=== PATIENT | male | born 1960 | race Caucasian/White ===

== ENCOUNTER 2019-10-31 19:14 | Emergency (ER) | payer SELFPAY ==
[2019-10-31 19:15] VITALS: BP 133/77; PULSE 78; RESP 16; TEMP 36.4; O2SAT 98; BMI 30.2
--- NOTE | 2019-10-31 19:18 | ED_ITS ---
HPI - SOB/Dyspnea General: Stated Complaint: POP IN GROIN Time Seen by Provider: 10/31/19 19:18 Discharge Plan Discharge Patient Disposition: Home, Self-Care Clinical Impression: Bronchitis Condition: Stable Prescriptions: New amoxicillin 500 mg capsule 500 mg PO TID 10 Days Qty: 30 RF: 0 benzonatate [Tessalon Perles] 100 mg capsule 100 mg PO TID PRN (Reason: cough) Qty: 30 RF: 0 Discharge Orders: Discharge Order (Routine); Ordered 10/31/19 Ordered By: Magda Simms Referrals: Emely Oliver DO [Physician] - 1-3 days Discharge Diet: Advance as tolerated Discharge Activity: Increase activity as tolerated Patient Instructions: Acute Bronchitis (ED) Activity Restrictions/Additional Instructions: Please return to the ER immediately for any of the signs or symptoms listed on your discharge instruction sheets, worsening/changing of your symptoms, you are not getting better as quickly as expected, or for ANY other cause or concerns. Coding Level of Care Code ED Consulting Psychiatrist for Luis Tate
--- NOTE | 2019-10-31 19:31 | US_ITS ---
WS: [id number] TESTICULAR ULTRASOUND HISTORY: Right inguinal and testicle pain COMPARISON: None available. TECHNIQUE: Real-time and color Doppler imaging or utilized to perform a testicular ultrasound. Right testicle: 4.0 cm x 2.5 cm x 2.0 cm. Normal size and echogenicity. No mass or torsion. Normal color Doppler is present throughout. Systolic and diastolic velocities are both present. No significant hydrocele. Right epididymis: Normal epididymis with no increased vascularity. Spermatocele. Left testicle: 4.5 cm x 3.6 cm x 3.9 cm. Normal size and echogenicity. No mass or torsion. Normal color Doppler is present throughout. Systolic and diastolic velocities are both present. No significant hydrocele. Left epididymis: Normal epididymis with no increased vascularity. No hernia is identified. There is fat along the inguinal canals but no evidence for ischemic change. US/US scrotum [id number] IMPRESSION: NORMAL TESTICULAR ULTRASOUND.
[2019-10-31] MEDS: lactated ringers 1,000 ML 150 ML IV (19:55)
[2019-10-31 19:56] VITALS: RESP 18; O2SAT 97
[2019-10-31] MEDS: morphine 4 mg/mL SDV 1 mL IVP (19:56)
[2019-10-31] MEDS: ondansetron 2 mg/ML SDV 2 mL 4 MG IVP (19:57)
--- NOTE | 2019-10-31 20:03 | CTR_ITS ---
PROCEDURE INFORMATION: Exam: CT Abdomen And Pelvis Without Contrast Exam date and time: 10/31/2019 8:05 PM Age: 59 years old Clinical indication: Pain; Other: [place] a pop in groin; Prior surgery; Surgery type: Left hip, ivc filter; Additional info: RT. Inguinal pain TECHNIQUE: Imaging protocol: Computed tomography of the abdomen and pelvis without contrast. Radiation optimization: All CT scans at this facility use at least one of these dose optimization techniques: automated exposure control; mA and/or kV adjustment per patient size (includes targeted exams where dose is matched to clinical indication); or iterative reconstruction. COMPARISON: CT abdomen pelvis w con* [id number] 10/09/2014 2:34 PM RADIATION DOSE METRICS: Total DLP: 1161.59 mGy-cm FINDINGS: Lungs: Limited assessment lung bases without visible evidence of active cardiopulmonary process. Liver: Unremarkable. No mass. Gallbladder and bile ducts: Normal. No calcified stones. No ductal dilation. Pancreas: Normal. No ductal dilation. Spleen: Normal. No splenomegaly. Adrenals: Normal. No mass. Kidneys and ureters: Normal. No hydronephrosis. Stomach and bowel: Mild diverticulosis coli without visible evidence of active or acute diverticulitis. Nonobstructive bowel pattern. No visible adynamic or reactive ileus. Appendix: No evidence of appendicitis. Intraperitoneal space: Unremarkable. No free air. No significant fluid collection. Vasculature: IVC filter. The abdominal aorta is nonaneurysmal. Moderate arterial sclerotic disease. Lymph nodes: Unremarkable. No enlarged lymph nodes. Bladder: Unremarkable as visualized. Reproductive: Prostate hypertrophy. Bones/joints: Previous left hip pinning. No visible active or acute osseous pathology. Age-appropriate degenerative disease. Soft tissues: Bilateral small inguinal hernias containing fat only. CT/CT abdomen pelvis wo con [id number] IMPRESSION: No visible evidence of active or acute abdominal or pelvic pathologic process. Radiation Dose CTDIVOL = (mGy): DLP = 1161.59 (mGy-cm)
--- NOTE | 2019-10-31 20:03 | ED_ITS ---
HPI - Extremity Problem General: Chief complaint: Extremity Injury, Lower Stated complaint: POP IN GROIN Time Seen by Provider: 10/31/19 19:18 History of Present Illness: HPI Narrative: Aguila is a very nice 59-year-old male who comes in complaining of right inguinal pain. He states he was at work when he felt a sudden pop and burning pain in his right inguinal area. It radiated down to his right testicle and into his groin. The pain gradually subsided but then tonight while at rest he developed the burning pain in his groin again. Denies any difficulty urinating, fever, vomiting, lumps or swelling in the area, penile discharge, rectal pain or any other complaints. Patient denies ever have anything like this before. He denies any history of hernias, testicular problems or otherwise. He is not tried anything for this. He was brought in by EMS. Associated symptoms: Deny chest pain, fever(s) or rash Review of Systems Const: Denies: fever(s), chills, body aches, fatigue, malaise, night sweats or diaphoresis Eyes: Denies: change in vision, blurry vision or blind spots ENMT: Denies: throat pain, odynophagia, hoarseness, ear or mastoid pain, ear discharge, change in hearing or nasal discharge Card: Denies: chest pain, palpitations, irregular heart rhythm, lightheadedness, syncope, pre-syncope, dyspnea on exertion or orthopnea Resp: Denies: dyspnea, productive cough, non-productive cough, wheezing, hemoptysis or chest congestion GI: Reports: abdominal pain; Denies: nausea, vomiting, hematemesis, coffee ground emesis, heartburn, diarrhea, constipation, GI cramping, hematochezia or melena : Denies: flank pain, dysuria, urinary frequency, urinary urgency, oliguria, urinary incontinence or hematuria Musc: Denies: neck pain, back pain, extremity pain, extremity swelling, joint pain, joint swelling, joint redness, joint warmth or joint stiffness Skin/Breast: Denies: rash, pruritus, erythema, skin tenderness or jaundice Neuro: Denies: headache(s), numbness in extremities, weakness in extremities, sensory changes, lack of coordination, difficulty walking, dizziness, vertigo, confusion or Slurred speech present Endo: Denies: polyuria, polydipsia, tired all the time, cold intolerance, excessive sweating, flushing, hot flashes or heat intolerance Calvin/Lymph: Denies: easy bruising, easy bleeding, petechiae, purpura or enlarged lymph nodes All/Imm: Denies: urticaria, throat swelling, tongue swelling, facial swelling or acute wheezing PFSH ED PFSH: Medical History Pulmonary emboli Vertigo Surgical History S/P IVC filter Status post hip surgery Social History Smoking and tobacco status: current every day smoker Physical Exam Const: COMMON NORMALS: no acute distress, patient oriented x3, no limitations, healthy appearing and well nourished EXAM LIMITATIONS: no altered mental status GENERAL APPEARANCE: cooperative, well kempt and well developed HENMT: COMMON NORMALS: normocephalic, atraumatic, hearing grossly normal bilaterally, external ears normal, EAC's normal, Normal external nose present and moist oral mucous membranes HEAD & SCALP: normal to inspection, normocephalic and atraumatic FACE & SINUS: normal facial exam and face symmetric NOSE: Normal external nose present and Normal nares present EXTERNAL EAR: Yes external ears normal EXTERNAL AUDITORY CANAL: EAC's normal MOUTH: Normal oral and palatal mucosa present, lip normal and tongue normal Eye: COMMON NORMALS: Equal, round and reactive pupils present, EOMs intact bilaterally, conjunctivae normal and no scleral icterus GENERAL EYE: appearance normal, both eyes and all related structures ALIGNMENT: Yes alignment normal PERIORBITAL: periorbital findings normal EYELID: eyelids normal CONJUNCTIVA: Yes conjunctivae normal SCLERA: sclerae normal PUPIL: Yes Equal, round and reactive pupils present Neck/C-Spine: COMMON NORMALS: full ROM, no lymphadenopathy, supple, no meningeal signs and no JVD GENERAL: Yes normal visual inspection and Yes trachea midline CERVICAL SPINE: Yes cervical ROM normal Chest: COMMONS NORMALS: normal inspection of the chest and normal palpation of entire chest wall Resp: COMMON NORMALS: normal respiratory effort, No retractions, No use of accessory muscles and clear to auscultation bilaterally EFFORT & INSPECTION: Yes able to speak in complete sentences AUSCULTATION: clear to auscultation bilaterally, no crackles, no rales, no rhonchi and no wheezes Cardio: COMMON NORMALS: no JVD, regular rate, regular rhythm, S1 normal heart sound present, S2 normal heart sound present, No gallops present (Cardio), No clicks present (Cardio), No murmurs present (Cardio) and No rub (Cardio) RATE: regular rate RHYTHM: regular rhythm HEART SOUNDS: S1 normal heart sound present, S2 normal heart sound present, no click, no gallops, no murmurs and no rubs GI: COMMON NORMALS: Soft to palpation, No hepatosplenomegaly present and no masses PALPATION: Yes Soft to palpation, No Tenderness to palpation present (GI) (Right inguinal area. No definitive hernia is palpated), No Guarding due to palpation present (GI), No Rigid due to palpation, Yes No hepatosplenomegaly present, No Hernia present, No Palpable mass present and No Pulsatile mass present : COMMON NORMALS: Yes no CVA tenderness BLADDER/KIDNEY EXAM: Yes no CVA tenderness PENIS: normal penis SCROTUM: Yes testes descended bilaterally, Yes Cremasteric reflex present and No inguinal hernia TESTES: Yes testicular lie normal Back/Pelvis: COMMON NORMALS: no CVA tenderness, thoracic and lumbar spine normal to inspection, no thoracic nor lumbar tenderness and thoraco-lumbar ROM normal Extremity: COMMON NORMALS: normal to inspection, full ROM, capillary refill normal, no joint enlargement, no clubbing, cyanosis or edema and no calf tenderness Neuro: COMMON NORMALS: patient oriented x3, CN's II-XII intact bilaterally, moves all extremities, no focal motor deficits and no sensory deficits noted MENINGEAL SIGNS: Yes no meningeal signs SPEECH: speech normal Psych: COMMON NORMALS: mental status grossly normal, Normal thought process present, cooperative, normal affect, speech normal and activity/motor behavior normal APPEARANCE: Yes well kempt SPEECH: Yes normal speech THOUGHT PROCESS: Normal thought process present Skin: COMMON NORMALS: no rashes or lesions noted, turgor normal, no jaundice, no petechiae and no mottling GENERAL SKIN EXAM: no rashes or lesions noted and turgor normal Course ED course: 2008 -after that information of hernia being present on ultrasound I went back in and palpated much deeper into the patient's right inguinal area and I believe I felt it give. I believe the hernia is back in place. The patient continues to have burning inguinal pain so I will add a CT scan just to be certain there is no further hernia which could become serious if it becomes necrotic. Vital Signs: Vital signs: Vital Signs Temperature 97.6 F 10/31/19 19:15 Pulse Rate 62 10/31/19 21:49 Respiratory Rate 14 10/31/19 21:49 Blood Pressure 111/73 10/31/19 21:49 Pulse Oximetry 95 10/31/19 21:49 MDM - Extremity (Nontraumatic) MDM Narrative: Medical decision making narrative: CT reveals that the patient's hernia has resolved. It was very subtle and I was not confident that this was the cause and that is why the CT was performed. I had applied deep pressure to the area and felt a small give but it was very small and very subtle and not completely confident that I had reduced the hernia or that this was a hernia at all. Aguila is comfortable now and has no burning pain. He is ready to go home. I see no evidence of appendicitis, kidney stone, testicular problem, infection, UTI or otherwise. Patient agrees to return should his pain or symptoms return. He agrees to follow-up with Dr. Alamo for evaluation for possible surgery and definitive repair. Lab Data: Attestation: I reviewed the patient's lab results. Labs: Lab Results 10/31/19 10/31/19 10/31/19 Range/Units 19:50 19:50 19:50 WBC 7.5 (4.0-10.0) 10^3/ uL RBC 4.92 (4.1-5.3) 10^6/u L Hgb 14.7 (11.7-16.6) g/dL Hct 45.2 (42.0-52.0) % MCV 91.9 (80-94) fL MCH 29.9 (28.0-34.0) pg MCHC 32.5 (30.0-36.0) g/dL RDW 12.5 (12.1-15.1) % Plt Count 241 (130-400) 10^3/c mm MPV 10.6 H (7.4-10.4) fL Neut % (Auto) 59.2 % Lymph % (Auto) 27.8 % Calvert % (Auto) 8.1 % Eos % (Auto) 3.5 % Baso % (Auto) 1.1 % Neut # (Auto) 4.4 (1.8-7.7) 10^3/u L Lymph # (Auto) 2.1 (0.8-4.8) 10^3/u L Calvert # (Auto) 0.6 (0.2-0.9) 10^3/u L Eos # (Auto) 0.3 (0.0-0.8) 10^3/u L Baso # (Auto) 0.1 (0.0-0.1) 10^3/u L Nucleated RBC % (a uto) 0 % Nucleated RBCs # 0.0 /100WBC PT 12.90 (10.5-13.3) SECO NDS INR 0.94 (0.8-1.2) Sodium 138 (136-145) mmol/L Potassium 4.0 (3.5-5.1) mmol/L Chloride 103 (98-107) mmol/L Carbon Dioxide 25 (22-29) mmol/L Anion Gap 14.0 (5-19) BUN 15 (6-20) mg/dL Creatinine 0.9 (0.7-1.2) mg/dL GFR Calculation 86.4 L (90-130) mL/min Glucose 117 H (65-115) mg/dL Calculated Osmolal ity 283 L (285-295) mOsm/k g Calcium 8.6 (8.5-10.5) mg/dL Total Bilirubin 0.4 (0.15-1.2) mg/dL AST 17 (0-40) U/L ALT 28 (0-41) U/L Alkaline Phosphata se 83 (40-130) IU/L Total Protein 6.6 (6.6-8.7) g/dL Albumin 4.1 (3.5-5.2) g/dL Globulin 2.5 (1.3-4.6) g/dL Lipase 34 (13-60) U/L Urine Color (Yellow) Urine Appearance (CLEAR) Urine pH (5-7) Ur Specific Gravit y (1.005-1.030) Urine Protein (Negative) Urine Glucose (UA) (Normal) Urine Ketones (Negative) Urine Blood (Negative) Urine Nitrate (Negative) Urine Bilirubin (NEGATIVE) Urine Urobilinogen (Negative) mg/dL Ur Leukocyte Luana ase (Negative) Urine RBC (0-2) /hpf Urine WBC (0-5) /hpf Ur Squamous Epith Cells (0-5) Urine Bacteria (NONE) Urine Mucus 10/31/19 Range/Units 20:20 WBC (4.0-10.0) 10^3/ uL RBC (4.1-5.3) 10^6/u L Hgb (11.7-16.6) g/dL Hct (42.0-52.0) % MCV (80-94) fL MCH (28.0-34.0) pg MCHC (30.0-36.0) g/dL RDW (12.1-15.1) % Plt Count (130-400) 10^3/c mm MPV (7.4-10.4) fL Neut % (Auto) % Lymph % (Auto) % Calvert % (Auto) % Eos % (Auto) % Baso % (Auto) % Neut # (Auto) (1.8-7.7) 10^3/u L Lymph # (Auto) (0.8-4.8) 10^3/u L Calvert # (Auto) (0.2-0.9) 10^3/u L Eos # (Auto) (0.0-0.8) 10^3/u L Baso # (Auto) (0.0-0.1) 10^3/u L Nucleated RBC % (a uto) % Nucleated RBCs # /100WBC PT (10.5-13.3) SECO NDS INR (0.8-1.2) Sodium (136-145) mmol/L Potassium (3.5-5.1) mmol/L Chloride (98-107) mmol/L Carbon Dioxide (22-29) mmol/L Anion Gap (5-19) BUN (6-20) mg/dL Creatinine (0.7-1.2) mg/dL GFR Calculation (90-130) mL/min Glucose (65-115) mg/dL Calculated Osmolal ity (285-295) mOsm/k g Calcium (8.5-10.5) mg/dL Total Bilirubin (0.15-1.2) mg/dL AST (0-40) U/L ALT (0-41) U/L Alkaline Phosphata se (40-130) IU/L Total Protein (6.6-8.7) g/dL Albumin (3.5-5.2) g/dL Globulin (1.3-4.6) g/dL Lipase (13-60) U/L Urine Color Yellow (Yellow) Urine Appearance Hazy A (CLEAR) Urine pH 5 (5-7) Ur Specific Gravit y 1.025 (1.005-1.030) Urine Protein Neg (Negative) Urine Glucose (UA) 1+ (Normal) Urine Ketones Negative (Negative) Urine Blood Neg (Negative) Urine Nitrate Negative (Negative) Urine Bilirubin Neg (NEGATIVE) Urine Urobilinogen Norm (Negative) mg/dL Ur Leukocyte Luana ase Negative (Negative) Urine RBC 0-4 H (0-2) /hpf Urine WBC None (0-5) /hpf Ur Squamous Epith Cells 0-4 H (0-5) Urine Bacteria Trace (NONE) Urine Mucus 2+ Imaging Data^: Ultrasound Scrotum and Contents: My impression: Technologist interpretation -testicles normal without torsion. Small epididymal cyst. No hydroceles. Omental hernia present in right inguinal canal. Discharge Plan Discharge Patient Disposition: Home, Self-Care Clinical Impression: Hernia Condition: Stable Prescriptions: New amoxicillin 500 mg capsule 500 mg PO TID 10 Days Qty: 30 RF: 0 Tessalon Perles 100 mg capsule 100 mg PO TID PRN (Reason: cough) Qty: 30 RF: 0 Discharge Orders: Discharge Order (Routine); Ordered 10/31/19 Ordered By: Magda Simms Referrals: Jean Alamo MD [Physician] - 1-3 days Emely Oliver DO [Physician] - 1-3 days Discharge Diet: Advance as tolerated Discharge Activity: Increase activity as tolerated Patient Instructions: Inguinal Hernia (ED) Activity Restrictions/Additional Instructions: Please return to the ER immediately for any of the signs or symptoms listed on your discharge instruction sheets, worsening/changing of your symptoms, you are not getting better as quickly as expected, or for ANY other cause or concerns. Use tight fitting underwear or jockstrap to help keep pressure on the area invo lved. If you feel a hernia return or you have pain in your groin return to the ER as soon as possible for recheck. Stand Alone Forms: Work/School Release Discharge Date/Time: 10/31/19 21:57 Coding Level of Care Code ED Training Instructor for Chg Fwd Exam Comprehensive
[2019-10-31 20:10] LABS: Basophils # 0.1 10^3/uL (0.0-0.1); Basophils % 1.1 %; Eosinophils # 0.3 10^3/uL (0.0-0.8); Eosinophils % 3.5 %; Hematocrit 45.2 % (42.0-52.0); Hemoglobin 14.7 g/dL (11.7-16.6); Lymphocytes # 2.1 10^3/uL (0.8-4.8); Lymphocytes % 27.8 %; Mean Corpuscular HGB Conc 32.5 g/dL (30.0-36.0); Mean Corpuscular Hemoglobin 29.9 pg (28.0-34.0); Mean Corpuscular Volume 91.9 fL (80-94); Mean Platelet Volume 10.6 fL (7.4-10.4); Monocytes # 0.6 10^3/uL (0.2-0.9); Monocytes % 8.1 %; Neutrophils # 4.4 10^3/uL (1.8-7.7); Neutrophils % 59.2 %; Nucleated Red Blood Cells % 0 %; Platelet Count 241 10^3/cmm (130-400); Red Blood Count 4.92 10^6/uL (4.1-5.3); Red Cell Distribution Width 12.5 % (12.1-15.1); White Blood Count 7.5 10^3/uL (4.0-10.0)
[2019-10-31 20:23] LABS: INR 0.94 (0.8-1.2)
[2019-10-31 20:35] LABS: Alanine Aminotransferase 28 U/L (0-41); Albumin Level 4.1 g/dL (3.5-5.2); Alkaline Phosphatase 83 IU/L (40-130); Aspartate Amino Transferase 17 U/L (0-40); Blood Urea Nitrogen 15 mg/dL (6-20); Calcium 8.6 mg/dL (8.5-10.5); Carbon Dioxide 25 mmol/L (22-29); Chloride 103 mmol/L (98-107); Globulin 2.5 g/dL (1.3-4.6); Glomerular Filtration Rate 86.4 mL/min (90-130); Glucose 117 mg/dL (65-115); Lipase 34 U/L (13-60); Osmolality Calculated 283 mOsm/kg (285-295); Sodium 138 mmol/L (136-145); Total Bilirubin 0.4 mg/dL (0.15-1.2); Total Protein 6.6 g/dL (6.6-8.7)
[2019-10-31 21:10] LABS: Bilirubin Urine Neg (NEGATIVE); Blood Urine Neg (Negative); Glucose Urine UA 1+ (Normal); Ketones Urine Negative (Negative); Leukocyte Esterase Urine Negative (Negative); Nitrate Urine Negative (Negative); Protein Urine Neg (Negative); Specific Gravity, Urine 1.025 (1.005-1.030); Urine Appearance Hazy (CLEAR); Urine Color Yellow (Yellow); Urobilinogen Urine Norm (Negative); pH Urine 5 (5-7)
[2019-10-31 21:12] LABS: Add Urine Culture? No; Bacteria Urine TRACE; Mucus Urine 2+; RBC Urine 0-4 /hpf (0-2); Squamous Epithelial Cell Urine 0-4 (0-5)
[2019-10-31 21:49] VITALS: BP 111/73; PULSE 62; RESP 14; O2SAT 95
--- NOTE | 2019-11-01 12:44 | DCPLANNER ---
surface water manager had message to schedule a follow up appointment for patient with [facility]. surface water manager spoke with Meagan, gave clinic patients information. A follow up appointment is scheduled for Tuesday, November 05, 2019 at 3:[address] Alamo. Clinic will call patient with appointment information.
--- NOTE | 2019-11-13 10:01 | DCPLANNER ---
Patient attended appointment scheduled with [facility] on 11.05.19.
== END 2019-10-31 21:57 | disposition home or self-care (01) ==
LOC: ER 19:47
PROVIDERS: Emergency Provider Emergency Medicine
DX: K46.9 Unspecified abdominal hernia without obstruction or gangrene (principal); F17.210 Nicotine dependence, cigarettes, uncomplicated
CPT/HCPCS: 12345; 74176; 76870; 80053; 81001; 83690; 85025; 85610; 96365; 96366; 96375; 99282; 99283; J2270; J2405

== ENCOUNTER 2019-11-07 09:16 | Day surgery (SDC) | payer SELFPAY ==
[2019-11-06 12:14] VITALS: BMI 27.2
[2019-11-07] VITALS (8 sets, daily range): BP systolic 117–152; BP diastolic 77–92; PULSE 56–65; RESP 16–23; TEMP 35.9–36.3; O2SAT 92–97
--- NOTE | 2019-11-07 09:33 | W.PM.OPSUD ---
Surgery/Procedure H&P Update DATE OF PROCEDURE: November 07, 2019 DATE H&P PERFORMED: 11/05/19 H&P UPDATE INFORMATION: I have reviewed H&P completed within last 30 days, I have examined patient prior to procedure and No changes to prior documentation PREOP DIAGNOSIS: Right inguinal hernia PLANNED PROCEDURE: Operation Date: 11/07/19 10:30 Proposed Procedures p Laparoscopic Inguinal Hernia Repair with mesh [id number]/hernia K42.9(Right) - Jean Alamo MD
--- NOTE | 2019-11-07 09:36 | P.ANESASSM_ITS ---
Pre-Anesthetic Assessment Pre-Anesthetic Assessment: Height/Weight: Height 1.88 m Weight 96.162 kg Preop Diagnosis: Right inguinal hernia Proposed Procedure: Operation Date: 11/07/19 10:30 Proposed Procedures p Laparoscopic Inguinal Hernia Repair with mesh [id number]/hernia K42.9(Right) - Jean Alamo MD Familial anesthetic complications: None Was Beta Gold taken within 24 hours: N/A Last intake: Intake Last Liquid Date 11/06/19 Last Liquid Time 21:00 Last Solid Date 11/06/19 Last Solid Time 21:00 Social: Social History: Tobacco and No alcohol Exam: Pre-Anes Outpt Exam: alert, oriented x 3, clear to auscultation bilaterally and regular rate & rhythm Airway: Cervical ROM: WNL MP: 2 Additional comments: missing, poor dention Pulmonary: Pulmonary: None reported CV/HEM: CV/HEM: None reported : : None reported Hepatic: Hepatic: None reported GI: GI: None reported Metabolic: Metabolic: None reported Musc/skel: Musc/skel: None reported Neuropsych: Neuropsych: None reported Anesthetic Plan: ASA status: 1 Anesthesia: General Risk of > 500 ml blo od loss (7ml/kg in children): No PFSH Anesthesia PFSH: Medical History Pulmonary emboli Vertigo Surgical History H/O circumcision History of throat surgery S/P IVC filter Status post hip surgery Family History Denies family history of Diabetes CAD (coronary artery disease) Anesthesia complication Bleeding disorder Cancer Social History Smoking and tobacco status: current every day smoker Alcohol intake: never Household members: significant other Marital status: Single Current occupational status: employed History of recent travel: No Data Anesthesia Cardiac Studies: No Data to Display
[2019-11-07] MEDS: sodium chloride 0.9% 1,000 ML 30 ML IV (09:48)
[2019-11-07] MEDS: vancomycin 1,000 MG in sodium chloride 0.9% 250 ML 250 MG IV (09:51)
--- NOTE | 2019-11-07 10:54 | PM.OP ---
Operative Report Date of procedure: November 07, 2019 Pre-op Diagnosis: Right inguinal hernia Post-op Findings: Reducible indirect right inguinal hernia Procedure Done: Laparoscopic total extraperitoneal repair of right inguinal hernia with surgimax 3D mesh Pathology: none sent Surgeon: Jean Alamo Anesthesia: General Estimated blood loss (mL): 10 Condition: stable Disposition: PACU Procedure: The patient was taken to the operating room. After IV antibiotic was administered, the abdomen was prepped and draped in a sterile manner. Using a 15 blade, a 1.0 cm transverse incision was made infraumbilically on the right side. Subcutaneous tissue was divided using electrocautery and the anterior rectus sheath divided using an 11 blade. The rectus muscle was retracted laterally and the extraperitoneal space identified. A 11 mm port was placed and 12 mm of pneumoperitoneum was created. A 10 mm 30? scope was introduced and the retrorectus space was opened using the camera up to the pubic symphysis and 5 mm ports were placed in the midline, one 2-fingerbreadths above the pubic symphysis and the other midway between these two ports under direct visualization. Blunt dissection was carried out to open up the tissue in the midline and to the pubic symphysis, which was identified. The dissection was then carried laterally where the iliopubic tract was identified. There was no femoral, obturator or direct hernia noted. The inferior epigastric artery was identified and dissection was carried posterior to it and laterally, the space was opened up to the level of the umbilicus superior to the anterior superior iliac spine. I then proceeded to dissect out the spermatic cord and the indirect hernial sac was reduced . 16 x 10cm Surgimax 3D mesh was rolled and introduced through the 10 mm port and then rolled laterally and apposed well against the abdominal wall to cover the myopectineal orifice completely. 10 Cc of 0.5% Marcaine was infiltrated into the preperitoneal space. The extraperitoneal space was desufflated under direct visualization to ensure no slippage of hernial sac under the mesh. All ports were removed, the anterior rectus fascia at the infraumbilical port closed using figure of eight 0 Vicryl sutures, subcutaneous tissue approximated using 3-0 Vicryl sutures and skin at all three port sites were closed using running subcuticular 4-0 Monocryl sutures and Dermabond. 10 mL of 0.5% Marcaine was infiltrated at the port sites. The patient was stable throughout the procedure.
--- NOTE | 2019-11-07 11:16 | SUR.PHASEI ---
PT SLEEPS QUIETLY WITH GOOD RESP NOTED PT AWAKES TO TOUCH BUT QUICKLY BACK TO SLEEP BLANKET WARMER ON FOR PT COMFORT #10, BILAT SCDS ON AND WORKING.
[2019-11-07] MEDS: HYDROcodone-acetaminophen 5-325 mg Tablet 1 TAB PO (11:50)
== END 2019-11-07 12:20 | disposition home or self-care (01) ==
PROVIDERS: Visit Provider Surgery
PROC: (CPT 49650; principal; 2019-11-07 10:30)
DX: K40.90 Unilateral inguinal hernia, without obstruction or gangrene, not specified as recurrent (principal); F17.210 Nicotine dependence, cigarettes, uncomplicated
CPT/HCPCS: 49650; 12345; C1781; J2704; J3010; J3370; J3490; J7030; J7050

== ENCOUNTER 2019-12-27 11:06 | Emergency (ER) | payer SELFPAY ==
[2019-12-27 11:13] VITALS: BP 130/81; PULSE 78; RESP 12; TEMP 36.2; O2SAT 98; BMI 30.2
--- NOTE | 2019-12-27 11:31 | CT_ITS ---
WS: [id number] CT scan of the abdomen and pelvis with IV contrast. Additional two-dimensional coronal and sagittal r econstruction was performed. 12/27/2019 Clinical Data: gi bleed Comparison: CT abdomen and pelvis, 10/31/2019. DLP: 1157.[address] scans at [facility] use at least one of these dose optimization techniques: automat ed exposure control; mA and/or kV adjustment per patient size (includes targeted exams where dose is matched to clinical indication); or iterative reconstruction. Findings: The lower lungs show no nodules, masses or effusions. The liver, gallbladder, spleen, adrenal glands and pancreas are normal. The kidneys show equal bilateral contrast excretion with no cyst or masses. The abdominal aorta is normal in size with minimal calcification in the wall. There is a vena caval f ilter in good position unchanged. No appendicitis or diverticulitis is seen. There are sigmoid diverticula. No abscess, adenopathy, asc ites, mass, obstruction or free air is seen. The bladder is unremarkable. No inguinal hernia is seen. The bones of the lower thorax, lumbar spine, pelvis, and hips show degenerative arthritic changes of the vertebral bodies and left femoral neck pins.. CT/CT abdomen pelvis w con* [id number] Impression: Negative for acute intra-abdominal or pelvic abnormalities.
--- NOTE | 2019-12-27 11:31 | XR_ITS ---
WS: [id number] Portable AP upright chest, 12/27/2019 Clinical Data: gi bleed Comparison: PA and lateral chest, 05/31/2017 Findings: No nodules, masses or effusions are seen. The heart is normal. The pulmonary vascularity is not increased. No pneumonia or pneumothorax is seen. XR/XR chest 1V portable [id number] Impression: Negative chest.
[2019-12-27 12:23] LABS: Basophils # 0.1 10^3/uL (0.0-0.1); Basophils % 0.8 %; Eosinophils # 0.1 10^3/uL (0.0-0.8); Eosinophils % 1.9 %; Hematocrit 46.4 % (42.0-52.0); Hemoglobin 15.2 g/dL (11.7-16.6); Lymphocytes # 1.8 10^3/uL (0.8-4.8); Lymphocytes % 28.4 %; Mean Corpuscular HGB Conc 32.8 g/dL (30.0-36.0); Mean Corpuscular Hemoglobin 29.9 pg (28.0-34.0); Mean Corpuscular Volume 91.2 fL (80-94); Mean Platelet Volume 10.6 fL (7.4-10.4); Monocytes # 0.4 10^3/uL (0.2-0.9); Monocytes % 5.6 %; Neutrophils # 4.08 10^3/uL (1.8-7.7); Nucleated Red Blood Cells % 0 %; Platelet Count 266 10^3/cmm (130-400); Red Blood Count 5.09 10^6/uL (4.1-5.3); Red Cell Distribution Width 12.7 % (12.1-15.1); White Blood Count 6.5 10^3/uL (4.0-10.0)
[2019-12-27 12:29] LABS: INR 0.96 (0.8-1.2); Partial Thromboplastin Time 30.1 SECONDS (23.9-36.7)
--- NOTE | 2019-12-27 12:29 | W.ED.GIBLEED ---
HPI - GI Bleed General: Chief complaint: Abdominal Pain Stated complaint: ABD PAIN, BLOODY STOOL Time Seen by Provider: 12/27/19 11:30 History of Present Illness: HPI Narrative: Patient states that he is having intermittent bloody stools for the past 2 weeks. Patient states he was seen at another facility approximately 2 weeks ago and had a CAT scan. Patient told me what the ER physician at that time had told him about the results of his CAT scan. Patient was reportedly told that he had stretch abdalla in his colon that are causing the rectal bleeding. MD complaint: blood streaked stool and gross hematochezia Onset (ago): week(s) (2) Pain Consistency: intermittent Relieving factors: none Exacerbating factors: bowel movement Associated symptoms: Reports no associated symptoms Treatments Prior to Arrival: none Review of Systems General: Reports: 10 or more systems reviewed and unremarkable except in HPI and below PFSH ED PFSH: Medical History (Updated 12/27/19 @ 13:02 by Derrek Reis DO) Pulmonary emboli Vertigo Surgical History (Updated 11/23/19 @ 17:32 by Jean Alamo MD) H/O circumcision History of throat surgery S/P IVC filter Status post hip surgery Status post right inguinal hernia repair Family History Denies family history of Diabetes CAD (coronary artery disease) Anesthesia complication Bleeding disorder Cancer Social History Smoking and tobacco status: current every day smoker Alcohol intake: never Household members: significant other Marital status: Single Current occupational status: employed History of recent travel: No Physical Exam Const: COMMON NORMALS: no acute distress, patient oriented x3, no limitations and alert HENMT: COMMON NORMALS: normocephalic, atraumatic, external ears normal and Normal external nose present HEAD & SCALP: normocephalic and atraumatic FACE & SINUS: normal facial exam NOSE: Normal external nose present EXTERNAL EAR: Yes external ears normal MOUTH: Normal oral and palatal mucosa present Neck/C-Spine: COMMON NORMALS: full ROM, no lymphadenopathy, supple, no meningeal signs and no JVD GENERAL: Yes normal visual inspection Resp: COMMON NORMALS: normal respiratory effort, No retractions, No use of accessory muscles and clear to auscultation bilaterally AUSCULTATION: clear to auscultation bilaterally Cardio: COMMON NORMALS: no JVD, regular rate and regular rhythm RATE: regular rate RHYTHM: regular rhythm GI: COMMON NORMALS: Normal to inspection, nondistended, normoactive bowel sounds present, Soft to palpation, non-tender, No hepatosplenomegaly present and no masses INSPECTION: Yes normal to inspection AUSCULTATION: Yes normoactive bowel sounds PALPATION: Yes Soft to palpation and Yes No hepatosplenomegaly present PERCUSSION: normal to percussion : COMMON NORMALS: Yes no CVA tenderness BLADDER/KIDNEY EXAM: Yes no CVA tenderness Back/Pelvis: COMMON NORMALS: no CVA tenderness, thoracic and lumbar spine normal to inspection, no thoracic nor lumbar tenderness, thoraco-lumbar ROM normal and straight leg raise negative bilaterally Extremity: COMMON NORMALS: normal to inspection, full ROM, capillary refill normal, no joint enlargement, no clubbing, cyanosis or edema, no calf tenderness and no pedal edema Neuro: COMMON NORMALS: patient oriented x3, moves all extremities, no focal motor deficits and no sensory deficits noted SENSORIUM/ORIENTATION: Yes alert MENINGEAL SIGNS: Yes no meningeal signs Psych: COMMON NORMALS: mental status grossly normal, Normal thought process present, cooperative, normal affect and speech normal SPEECH: Yes normal speech THOUGHT PROCESS: Normal thought process present Skin: COMMON NORMALS: no rashes or lesions noted, no wounds, turgor normal, no jaundice, no petechiae and no mottling GENERAL SKIN EXAM: no rashes or lesions noted and turgor normal Course ED course: Patient's Hemoccult test was negative. He has a hemoglobin of 15.2. BUN/creatinine are normal. As the patient apparently has no active bleeding at this time and is not anemic, he will be dismissed from the emergency room with a prescription for Anusol. He is instructed to contact Dr. Alamo as soon as possible to arrange for colonoscopy. He is instructed to return to the emergency room immediately for any problems, concerns, or worsening of condition. Vital Signs: Vital signs: Vital Signs Temperature 97.2 F L 12/27/19 11:13 Pulse Rate 78 12/27/19 11:13 Respiratory Rate 12 12/27/19 11:13 Blood Pressure 130/81 12/27/19 11:13 Pulse Oximetry 98 12/27/19 11:13 MDM - GI Bleed Lab Data: Labs: Lab Results 12/27/19 12/27/19 12/27/19 Range/Units 11:50 11:50 11:50 WBC 6.5 (4.0-10.0) 10^3/ uL RBC 5.09 (4.1-5.3) 10^6/u L Hgb 15.2 (11.7-16.6) g/dL Hct 46.4 (42.0-52.0) % MCV 91.2 (80-94) fL MCH 29.9 (28.0-34.0) pg MCHC 32.8 (30.0-36.0) g/dL RDW 12.7 (12.1-15.1) % Plt Count 266 (130-400) 10^3/c mm MPV 10.6 H (7.4-10.4) fL Neut % (Auto) 63.0 % Lymph % (Auto) 28.4 % [place] % (Auto) 5.6 % Eos % (Auto) 1.9 % Baso % (Auto) 0.8 % Neut # (Auto) 4.08 (1.8-7.7) 10^3/u L Lymph # (Auto) 1.8 (0.8-4.8) 10^3/u L [place] # (Auto) 0.4 (0.2-0.9) 10^3/u L Eos # (Auto) 0.1 (0.0-0.8) 10^3/u L Baso # (Auto) 0.1 (0.0-0.1) 10^3/u L Nucleated RBC % (a uto) 0 % Nucleated RBCs # 0.0 /100WBC PT 13.00 (10.5-13.3) SECO NDS INR 0.96 (0.8-1.2) APTT 30.1 (23.9-36.7) SECO NDS Sodium 138 (136-145) mmol/L Potassium 3.8 (3.5-5.1) mmol/L Chloride 105 (98-107) mmol/L Carbon Dioxide 24 (22-29) mmol/L Anion Gap 12.8 (5-19) BUN 17 (6-20) mg/dL Creatinine 0.9 (0.7-1.2) mg/dL GFR Calculation 86.4 L (90-130) mL/min Glucose 130 H (65-115) mg/dL Calculated Osmolal ity 284 L (285-295) mOsm/k g Calcium 9.3 (8.5-10.5) mg/dL Total Bilirubin 0.4 (0.15-1.2) mg/dL AST 12 (0-40) U/L ALT 17 (0-41) U/L Alkaline Phosphata se 83 (40-130) IU/L Total Protein 6.7 (6.6-8.7) g/dL Albumin 4.3 (3.5-5.2) g/dL Globulin 2.4 (1.3-4.6) g/dL Lipase 38 (13-60) U/L Discharge Plan Discharge Patient Disposition: Home Clinical Impression: Acute GI bleeding Condition: Stable Prescriptions: New Anusol-HC 25 mg suppository 25 mg IN BID Qty: 12 RF: 0 No Action Zofran 4 mg tablet 4 mg PO Q6H PRN (Reason: nausea and vomiting) Qty: 20 RF: 0 Colace 100 mg capsule 100 mg PO BID Qty: 30 RF: 0 Discharge Orders: Discharge Order (Routine); Ordered 12/27/19 Ordered By: Derrek Reis Coding Level of Care Code ED Travelift Operator for Lawrenceg Fwd Exam Comprehensive
[2019-12-27 12:35] LABS: Alanine Aminotransferase 17 U/L (0-41); Albumin Level 4.3 g/dL (3.5-5.2); Alkaline Phosphatase 83 IU/L (40-130); Anion Gap 12.8 (5-19); Aspartate Amino Transferase 12 U/L (0-40); Blood Urea Nitrogen 17 mg/dL (6-20); Calcium 9.3 mg/dL (8.5-10.5); Carbon Dioxide 24 mmol/L (22-29); Chloride 105 mmol/L (98-107); Globulin 2.4 g/dL (1.3-4.6); Glomerular Filtration Rate 86.4 mL/min (90-130); Glucose 130 mg/dL (65-115); Lipase 38 U/L (13-60); Osmolality Calculated 284 mOsm/kg (285-295); Potassium 3.8 mmol/L (3.5-5.1); Sodium 138 mmol/L (136-145); Total Bilirubin 0.4 mg/dL (0.15-1.2); Total Protein 6.7 g/dL (6.6-8.7)
[2019-12-27 12:47] LABS: Add Urine Microscopic? NO
[2019-12-27 13:15] LABS: Bilirubin Urine Neg (NEGATIVE); Blood Urine Neg (Negative); Glucose Urine UA Norm (Normal); Ketones Urine Negative (Negative); Leukocyte Esterase Urine Negative (Negative); Nitrate Urine Negative (Negative); Protein Urine Neg (Negative); Specific Gravity, Urine 1.015 (1.005-1.030); Urine Appearance Clear (CLEAR); Urine Color Yellow (Yellow); Urobilinogen Urine 1 mg/dL (Negative); pH Urine 5 (5-7)
[2019-12-27 13:24] LABS: Amphetamines Screen Urine Negative (Negative); Barbiturates Screen Urine Negative (Negative); Benzodiazepines Screen Urine Negative (Negative); Cocaine Screen Urine Negative (Negative); Opiate Screen Urine Negative (Negative); PCP Screen Urine Negative (Negative); THC Screen Urine Negative (Negative)
[2019-12-27 13:44] VITALS: BP 106/77; PULSE 71; RESP 18; O2SAT 96
== END 2019-12-27 13:46 | disposition home or self-care (01) ==
PROVIDERS: Emergency Provider Family Medicine
DX: K92.2 Gastrointestinal hemorrhage, unspecified (principal); F17.210 Nicotine dependence, cigarettes, uncomplicated
CPT/HCPCS: 12345; 71045; 74177; 80053; 80306; 81003; 83690; 85025; 85610; 85730; 99283; Q9967

== ENCOUNTER 2020-01-08 08:18 | Day surgery (SDC) | payer SELFPAY ==
[2020-01-04 14:42] VITALS: BMI 30.2
[2020-01-08 08:55] VITALS: BP 127/80; PULSE 66; RESP 18; TEMP 36.2; O2SAT 98
[2020-01-08] MEDS: sodium chloride 0.9% 1,000 ML 30 ML IV (08:59)
--- NOTE | 2020-01-08 09:43 | ANES.PREANE2 ---
Pre-Anesthetic Assessment Pre-Anesthetic Assessment: Height/Weight: Height 1.88 m Weight 106.594 kg Temp Pulse Resp BP Pulse Ox 97.2 F L 66 18 127/80 98 01/08/20 08:55 01/08/20 08:55 01/08/20 08:55 01/08/20 08:55 01/08/20 08:55 Preop Diagnosis: gi bleed Proposed Procedure: Operation Date: 01/08/20 10:00 Proposed Procedures p EGD/colon poss biopsy [id number] K92.2(Not Applicable) - Jean Alamo MD s Colonoscopy with poss biopsy poss polypectomy(Not Applicable) - Jean Alamo MD Last intake: Intake Last Liquid Date 01/08/20 Last Liquid Time 21:30 Last Solid Date 01/07/20 Social: Social History: Tobacco and No alcohol Exam: Pre-Anes Outpt Exam: alert, oriented x 3, clear to auscultation bilaterally and regular rate & rhythm Airway: Submandibular: WNL Cervical ROM: WNL MP: 1 Dentition: Other (very poor dentation) History/ROS: No significant history except as noted Pulmonary: Pulmonary: None reported CV/HEM: CV/HEM: DVT (s/p Hip fx) : : None reported Hepatic: Hepatic: None reported GI: GI: GERD (occ) Metabolic: Metabolic: None reported Musc/skel: Musc/skel: OA/DJD Neuropsych: Neuropsych: Anxiety and Seizure (last 2 months ago) Anesthetic Plan: ASA status: 2 Anesthesia: Anesthesia Evaluation and MAC Risk of > 500 ml blood loss (7ml/kg in children): No Meds/Allergies Current Medications: Current Medications Generic Name Dose Route Start Last Admin Trade Name Freq PRN Reason Stop Dose Admin Sodium Chloride 1,000 mls @ 30 ml s/hr 01/08/20 08:45 01/08/20 08:59 Sodium Chloride 0.9% IV 30 mls/hr .Q24H UMU Administration PFSH Anesthesia PFSH: Medical History Pulmonary emboli Vertigo Surgical History H/O circumcision History of throat surgery S/P IVC filter Status post hip surgery Status post right inguinal hernia repair Family History Denies family history of Diabetes CAD (coronary artery disease) Anesthesia complication Bleeding disorder Cancer Social History Smoking and tobacco status: current every day smoker Alcohol intake: never Household members: significant other Marital status: Single Current occupational status: employed History of recent travel: No Data Anesthesia Cardiac Studies: No Data to Display
--- NOTE | 2020-01-08 10:01 | W.PM.OPSUD ---
Surgery/Procedure H&P Update DATE OF PROCEDURE: January 08, 2020 DATE H&P PERFORMED: 12/28/19 H&P UPDATE INFORMATION: I have reviewed H&P completed within last 30 days, I have examined patient prior to procedure and No changes to prior documentation PREOP DIAGNOSIS: gi bleed PLANNED PROCEDURE: Operation Date: 01/08/20 10:00 Proposed Procedures p EGD/colon poss biopsy [id number] K92.2(Not Applicable) - Jean Alamo MD s Colonoscopy with poss biopsy poss polypectomy(Not Applicable) - Jean Alamo MD
[2020-01-08 10:31] VITALS: BP 107/76; PULSE 66; RESP 18; O2SAT 95
[2020-01-08 10:46] VITALS: BP 118/77; PULSE 61; RESP 18; O2SAT 96
== END 2020-01-08 11:05 | disposition home or self-care (01) ==
PROVIDERS: Visit Provider Surgery
PROC: 0DJ08ZZ Inspection of Upper Intestinal Tract, Via Natural or Artificial Opening Endoscopic (ICD-10-PCS; CPT 43235; principal; 2020-01-08 10:00)
PROC: 0DJD8ZZ Inspection of Lower Intestinal Tract, Via Natural or Artificial Opening Endoscopic (ICD-10-PCS; CPT 45378; 2020-01-08 10:00)
DX: K20.9 Esophagitis, unspecified (principal); K29.70 Gastritis, unspecified, without bleeding; K29.80 Duodenitis without bleeding; D12.2 Benign neoplasm of ascending colon; D12.5 Benign neoplasm of sigmoid colon; K64.8 Other hemorrhoids; Z86.718 Personal history of other venous thrombosis and embolism; K21.9 Gastro-esophageal reflux disease without esophagitis; M19.90 Unspecified osteoarthritis, unspecified site; F17.210 Nicotine dependence, cigarettes, uncomplicated
CPT/HCPCS: 12345; 43239; 45385; 88305; J2704; J7030

== ENCOUNTER 2021-10-13 09:26 | Emergency (ER) | payer MEDICAID, SELFPAY ==
--- NOTE | 2021-10-13 09:29 | W.ED.BACK ---
HPI - Back Pain/Injury General: Chief Complaint: Back Pain/Injury Stated Complaint: LOW BACK PAIN Time Seen by Provider: 10/13/21 09:28 Source: patient Mode of arrival: EMS Limitations: no limitations History of Present Illness: 61-year-old male comes in complaining of low back pain. He mowed his lawn yesterday as worsening back pain this morning feels like he has difficult time standing up. He had a hard time getting out of bed this point he has not had any difficulty with bowel or bladder no urinary retention or fecal incontinence. Pain is limited to the low back does not radiate into the legs. He has had back problems in the past. MD elicited complaint: back pain Pertinent past history: prior back pain Onset (ago): hour(s) Timing: constant Severity: moderate Similar Symptoms Previously: Yes Quality: sharp Location: lumbar spine Radiation: none Exacerbating factors: movement and walking Relieving factors: supine Context: while lifting, turning/twisting and bending Associated symptoms: Deny abdominal pain, arthralgias, chills, change in bowel habits, difficulty walking, dysuria, fatigue, fecal incontinence, fever(s), hematuria, myalgias, nausea, numbness, syncope, tingling/numbness/burning, urinary frequency, urinary urgency, vomiting or weakness Review of Systems Const: Denies: fever(s), chills or fatigue ENMT: Denies: throat pain, ear or mastoid pain, nasal discharge or nasal congestion Card: Denies: chest pain, palpitations, irregular heart rhythm or syncope Resp: Denies: dyspnea, productive cough or non-productive cough GI: Denies: abdominal pain, nausea, vomiting, fecal incontinence or change in bowel habits : Denies: flank pain, difficulty urinating, dysuria, urinary frequency, urinary urgency or hematuria Musc: Reports: back pain; Denies: extremity pain Skin/Breast: Denies: rash or pruritus Neuro: Denies: difficulty walking PFSH ED PFSH: Medical History Pulmonary emboli Vertigo Surgical History H/O circumcision H/O esophagogastroduodenoscopy (01/08/20) esophagitis, gastritis, duodenitis History of throat surgery S/P IVC filter Status post colonoscopy with polypectomy (01/08/20) sigmoid polyp Status post hip surgery Status post right inguinal hernia repair Family History Denies family history of Diabetes CAD (coronary artery disease) Anesthesia complication Bleeding disorder Cancer Social History Smoking and tobacco status: current every day smoker Alcohol intake: never Household members: significant other Marital status: Single Current occupational status: employed History of recent travel: No Physical Exam Const: COMMON NORMALS: no acute distress GENERAL APPEARANCE: cooperative and comfortable ORIENTATION/CONSCIOUSNESS: Yes awake, Yes oriented to person, Yes oriented to place and Yes oriented to time HENMT: COMMON NORMALS: normocephalic, atraumatic and hearing grossly normal bilaterally HEAD & SCALP: normocephalic and atraumatic Neck/C-Spine: COMMON NORMALS: no JVD Resp: COMMON NORMALS: normal respiratory effort, No retractions, No use of accessory muscles and clear to auscultation bilaterally AUSCULTATION: clear to auscultation bilaterally Cardio: COMMON NORMALS: no JVD, regular rate, regular rhythm and No murmurs present (Cardio) RATE: regular rate RHYTHM: regular rhythm GI: COMMON NORMALS: Soft to palpation and No hepatosplenomegaly present AUSCULTATION: Yes normoactive bowel sounds PALPATION: Yes Soft to palpation, No Tenderness to palpation present (GI), No Guarding due to palpation present (GI) and Yes No hepatosplenomegaly present Extremity: COMMON NORMALS: normal to inspection, capillary refill normal, no clubbing, cyanosis or edema, no calf tenderness and no pedal edema Neuro: SENSORIUM/ORIENTATION: Yes oriented to person, Yes oriented to place and Yes oriented to time OTHER: Neurovascularly intact to the lower extremities. Straight leg raising positive on the left leg. Muscle strength 5/5 Skin: COMMON NORMALS: no rashes or lesions noted GENERAL SKIN EXAM: no rashes or lesions noted Course Vital Signs: Vital signs: Vital Signs Temperature 98 F 10/13/21 13:27 Pulse Rate 66 10/13/21 13:27 Respiratory Rate 16 10/13/21 13:27 Blood Pressure 136/81 10/13/21 13:27 Pulse Oximetry 99 05/10/22 13:27 MDM - Back Pain/Injury Medical Decision Making Improved with medications discharged home with steroids to taper, muscle relaxers anti-inflammatories pain medications follow-up with primary care. Medical Records I reviewed the patient's medical records. Labs I reviewed the patient's lab results. : 10/13/21 10:22 10/13/21 10:22 Radiology Impressions Lumbar Spine MRI 10/13/21 09:40 IMPRESSION: 1. No high-grade central stenosis. 2. No mass or disc contacting the conus. 3. No fracture. 4. Moderate size central to LEFT paracentral disc protrusion at L4-5 contacting the LEFT lateral thecal sac with mild displacement of the LEFT L5 nerve root. 5. Additional mild contact on the ascending L4 nerve roots at L4-5 but no displacement. 6. Mild LEFT subarticular recess stenosis at L1-2. 7. Mild central and bilateral subarticular recess stenosis, RIGHT greater than LEFT at L2-3. 8. Mild bilateral subarticular recess and foraminal stenosis at L3-4. Laboratory Results WBC 9.4 10^3/uL (4.0-10.0) 10/13/21 10: RBC 5.19 10^6/uL (4.1-5.3) 10/13/21 10: Hgb 15.8 g/dL (11.7-16.6) 10/13/21 10: Hct 47.5 % (42.0-52.0) 10/13/21 10: MCV 91.5 fl (80-94) 10/13/21 10: MCH 30.4 pg (28.0-34.0) 10/13/21 10: MCHC 33.3 g/dL (30.0-36.0) 10/13/21 10: RDW 13.0 % (12.1-15.1) 10/13/21 10: Plt Count 241 10^3/cmm (130-400) 10/13/21 10: MPV 9.7 fL (7.4-10.4) 10/13/21 10: Neut % (Auto) 86.8 % 10/13/21 10: Lymph % (Auto) 10.5 % 10/13/21 10:22 [place] % (Auto) 1.5 % 10/13/21 10:22 Eos % (Auto) 0.3 % 10/13/21 10:22 Baso % (Auto) 0.4 % 10/13/21 10: Neut # (Auto) 8.18 10^3/uL (1.8-7.7) H 10/13/21 10:22 Lymph # (Auto) 1.0 10^3/uL (0.8-4.8) 10/13/21 10:22 [place] # (Auto) 0.1 10^3/uL (0.2-0.9) L 10/13/21 10:22 Eos # (Auto) 0.0 10^3/uL (0.0-0.8) 10/13/21 10: Baso # (Auto) 0.0 10^3/uL (0.0-0.1) 10/13/21 10:22 Nucleated RBC % (auto) 0 % 10/13/21 10: Nucleated RBCs # 0.0 /100WBC 10/13/21 10:22 ESR 2 mm/hr (0-10) 10/13/21 10:22 Sodium 139 mmol/L (136-145) 10/13/21 10:22 Potassium 5.0 mmol/L (3.5-5.1) 10/13/21 10: Chloride 107 mmol/L (98-107) 10/13/21 10:22 Carbon Dioxide 24 mmol/L (22-29) 10/13/21 10:22 Anion Gap 13.0 (5-19) 10/13/21 10:22 BUN 18 mg/dL (8-23) 10/13/21 10:22 Creatinine 1.1 mg/dL (0.7-1.2) 10/13/21 10:22 GFR Calculation 68.1 mL/min (90-130) L 10/13/21 10:22 Glucose 103 mg/dL (65-115) 10/13/21 10:22 Calculated Osmolality 290 mOsm/kg (285-295) 10/13/21 10:22 Calcium 9.0 mg/dL (8.5-10.5) 10/13/21 10:22 Total Bilirubin 0.4 mg/dL (0.15-1.2) 10/13/21 10:22 AST 10 U/L (0-40) 10/13/21 10:22 ALT 15 U/L (0-41) 10/13/21 10:22 Alkaline Phosphatase 83 IU/L (40-130) 10/13/21 10:22 C-Reactive Protein 4.0 mg/L (0.0-4.9) 10/13/21 10:22 Total Protein 7.2 g/dL (6.6-8.7) 10/13/21 10:22 Albumin 4.0 g/dL (3.5-5.2) 10/13/21 10:22 Globulin 3.2 g/dL (1.3-4.6) 10/13/21 10:22 Discharge Plan Discharge Patient Disposition: Home Clinical Impression: Lumbar radiculopathy Condition: Stable Prescriptions: New hydrocodone-acetaminophen 5-325 mg tablet 1 tab PO Q6H PRN (Reason: pain) Qty: 15 0RF prednisone 20 mg tablet 20 mg PO TID Qty: 15 0RF Rx Instructions: 1 p.o. 3 times daily x3 days, 1 p.o. twice daily x2 days, 1 p.o. daily x2 days tizanidine 4 mg capsule 4 mg PO Q6H PRN (Reason: muscle spasticity) Qty: 20 0RF Rx Instructions: do not exceed 3 doses per 24 hrs diclofenac sodium 75 mg tablet,delayed release (DR/EC) 75 mg PO Q12H PRN (Reason: pain) Qty: 20 0RF Discharge Orders: Discharge ED (Routine); Ordered 10/13/21 Ordered By: Pierre Cannon Discharge Diet: Usual diet Discharge Activity: Limit activity as instructed Patient Instructions: Opioid Safety Activity Restrictions/Additional Instructions: route delivery manager will make arrangements for you to follow-up with Dr. Herbert. Stand Alone Forms: Work/School Release Coding Level of Care Code ED Social Services Counselor for Luis Tate
[2021-10-13 09:33] VITALS: BP 106/81; PULSE 79; RESP 16; O2SAT 97; BMI 30.2
[2021-10-13 09:37] VITALS: BP 106/81; PULSE 70; RESP 18; TEMP 36.4; O2SAT 97
--- NOTE | 2021-10-13 09:40 | MR_ITS ---
WS: [id number] MRI LUMBAR SPINE NONCONTRAST HISTORY: fecal incontinence, chronic low back pain. Severe pain and difficulty standing. Please note the patient denies fecal incontinence although that is the history provided. COMPARISON: None available. TECHNIQUE: Sagittal and axial multisequence imaging is submitted. Mild increase in the thoracic kyphosis and mild scoliosis. Posterior lumbar alignment is normal. Less than 2 mm retrolisthesis of L2 and L3. No fracture or dolly ow edema. Moderate disc space narrowing and desiccation at L4-5. Conus terminates normally at L1-2 disc level. No mass effect upon the conus. L1-L2: Mild disc bulge. Mild facet and ligamentum flavum arthritis. There is mild LEFT subarticular r ecess stenosis. L2-L3: Mild disc bulging with a central disc protrusion encroaching into the subarticular recesses. D isc deforms the ventral thecal sac. There is mild central and bilateral subarticular recess stenosis, RIGHT greater than LEFT. L3-L4: Mild annular disc bulge with central annular fissure. Shallow central disc protrusion with mil d ligamentum flavum disease and facet arthritis. Mild bilateral subarticular recess and foraminal mark anthony nosis. L4-L5: Mild osteophytic ridging. Moderate size central to LEFT paracentral disc protrusion mildly def orms the LEFT lateral thecal sac and encroaches into the proximal foramina. Small annular fissures in the central and proximal LEFT foraminal disc protrusions. Mild ligamentum flavum disease and facet a rthritis. There is very mild disc contact on the L4 nerve roots. Very mild disc contact on the gal sing L5 nerve roots. Slightly greater displacement of the LEFT L5 nerve root. L5-S1: No significant stenosis. Visualized retroperitoneum is negative. MR/MR lumbar spine wo con* [id number] IMPRESSION: 1. No high-grade central stenosis. 2. No mass or disc contacting the conus. 3. No fracture. 4. Moderate size central to LEFT paracentral disc protrusion at L4-5 contactin g the LEFT lateral thecal sac with mild displacement of the LEFT L5 nerve root. 5. Additional mild contact on the ascending L4 nerve roots at L4-5 but no disp lacement. 6. Mild LEFT subarticular recess stenosis at L1-2. 7. Mild central and bilateral subarticular recess stenosis, RIGHT greater than LEFT at L2-3. 8. Mild bilateral subarticular recess and foraminal stenosis at L3-4.
--- NOTE | 2021-10-13 09:41 | ECG_ITS ---
[facility] Test Date: 2021-10-13 Pat Name: Aguila Teresa Department: Room: Gender: Male Recordings Librarian: : 1960 Requested By: Pierre Delacruz Order Number: [id number] Uri MD: Eamon Nath M.D. Measurements Intervals [place] Rate: 62 P: 29 HI: 185 QRS: 36 QRSD: 97 T: 48 QT: 376 QTc: 382 Interpretive Statements SINUS RHYTHM SEPTAL MYOCARDIAL INFARCTION , OF INDETERMINATE AGE [40+ ms Q WAVE IN V1/V2] Compared to ECG 07/19/2017 15:38:20 Myocardial infarct finding now present Electronically Signed On 10-13-2021 17:27:43 CDT by Eamon Nath M.D. [id number]
[2021-10-13 09:56] VITALS: BP 127/70; PULSE 64; RESP 18; O2SAT 95
[2021-10-13] MEDS: ondansetron 2 mg/ML SDV 2 mL 4 MG IVP (10:07)
[2021-10-13] MEDS: ketorolac 30 mg/mL INJ IVP (10:07)
[2021-10-13] MEDS: dexamethasone 10 mg/mL INJ IVP (10:08)
[2021-10-13 10:16] VITALS: RESP 18
[2021-10-13] MEDS: morphine 4 mg/mL SDV 1 mL 10 MG IVP (10:16)
[2021-10-13] MEDS: sodium chloride 0.9% 1,000 ML 999 ML IV (10:21)
[2021-10-13] MEDS: orphenadrine 30 mg/mL Inj 2 mL 60 MG IVP (10:21)
[2021-10-13 11:37] VITALS: BP 118/68; PULSE 65; RESP 16; O2SAT 96
[2021-10-13 12:48] LABS: Basophils % 0.4 %; Eosinophils % 0.3 %; Hematocrit 47.5 % (42.0-52.0); Hemoglobin 15.8 g/dL (11.7-16.6); Lymphocytes % 10.5 %; Mean Corpuscular HGB Conc 33.3 g/dL (30.0-36.0); Mean Corpuscular Hemoglobin 30.4 pg (28.0-34.0); Mean Corpuscular Volume 91.5 fl (80-94); Mean Platelet Volume 9.7 fL (7.4-10.4); Monocytes # 0.1 10^3/uL (0.2-0.9); Monocytes % 1.5 %; Neutrophils # 8.18 10^3/uL (1.8-7.7); Neutrophils % 86.8 %; Nucleated Red Blood Cells % 0 %; Platelet Count 241 10^3/cmm (130-400); Red Blood Count 5.19 10^6/uL (4.1-5.3); White Blood Count 9.4 10^3/uL (4.0-10.0)
[2021-10-13 12:53] LABS: Erythrocyte Sedimentation Rate 2 mm/hr (0-10)
[2021-10-13 13:17] LABS: Alanine Aminotransferase 15 U/L (0-41); Alkaline Phosphatase 83 IU/L (40-130); Aspartate Amino Transferase 10 U/L (0-40); Blood Urea Nitrogen 18 mg/dL (8-23); Carbon Dioxide 24 mmol/L (22-29); Chloride 107 mmol/L (98-107); Globulin 3.2 g/dL (1.3-4.6); Glomerular Filtration Rate 68.1 mL/min (90-130); Glucose 103 mg/dL (65-115); Osmolality Calculated 290 mOsm/kg (285-295); Sodium 139 mmol/L (136-145); Total Bilirubin 0.4 mg/dL (0.15-1.2); Total Protein 7.2 g/dL (6.6-8.7)
[2021-10-13 13:27] VITALS: BP 136/81; PULSE 66; RESP 16; TEMP 36.6; O2SAT 99
--- NOTE | 2021-10-13 18:14 | DCPLANNER ---
e commerce project manager was asked to arrange transportation home for patient. Yanique from the ER approved for a taxi to transport patient home. e commerce project manager called [facility] for transport.
--- NOTE | 2021-10-15 16:24 | DCPLANNER ---
Addendum entered by Darlene Brown 10/30/21 18:08: Patient did not attend appointment. Addendum entered by Darlene Brown 10/22/21 12:42: Patient has a follow up appointment scheduled for Wednesday, October 27, 2021 at 2:30 with EVP, Feroz Cruz at ortho. Clinic will call patient with appointment information. Original Note: manager marketing communications had message to schedule a follow up appointment for patient with ortho. manager marketing communications sent patients information to the front office staff at ortho. Patients information will be printed and reviewed. Clinic will call patient with appointment information. manager marketing communications also had message to speak with patient about getting established with a primary care physician. manager marketing communications was unable to speak with patient and unable to leave a voicemail for patient.
== END 2021-10-13 15:23 | disposition home or self-care (01) ==
PROVIDERS: Emergency Provider Family Medicine
DX: M54.16 Radiculopathy, lumbar region (principal); F17.200 Nicotine dependence, unspecified, uncomplicated
CPT/HCPCS: 72148; 80053; 85025; 85651; 86140; 93005; 96361; 96374; 96375; 99284; J1100; J1885; J2270; J2360; J2405; J7030

== ENCOUNTER 2021-11-24 10:42 | Observation (INO) | payer MEDICAID, SELFPAY ==
[2021-11-24] VITALS (14 sets, daily range): BP systolic 110–147; BP diastolic 67–92; PULSE 56–92; RESP 18; TEMP 36.4–36.5; O2SAT 93–100; BMI 30.2
--- NOTE | 2021-11-24 13:54 | ECG_ITS ---
[facility] Test Date: 2021-11-24 Pat Name: Aguila Teresa Department: Room: Gender: Male Registered Diet Technician: : 1960 Requested By: Tony Sanabria Order Number: [id number] Grewal MD: Trinh Dial M.D. Measurements Intervals [place] Rate: 58 P: 50 ID: [id number] QRS: 30 QRSD: 93 T: 30 QT: 389 QTc: 383 Interpretive Statements SINUS BRADYCARDIA SEPTAL MYOCARDIAL INFARCTION , PROBABLY OLD [40+ ms Q WAVE IN V1/V2] Compared to ECG 10/13/2021 09:54:18 Sinus rhythm no longer present Myocardial infarct finding still present Electronically Signed On 11-24-2021 22:29:08 CDT by Trinh Dial M.D. [id number]
--- NOTE | 2021-11-24 13:54 | XR_ITS ---
WS: [id number] Exam: XR chest 1V portable [id number] Date/Time of Exam: 11/24/2021 1:58 PM Reason For Exam: fatigue Comparison 12/27/2019. Findings: The lungs are clear and fully expanded. Costophrenic angles are sharp. No infiltrates. Bronchovascula r relief appears normal. Cardiac silhouette is unremarkable. Bony elements are intact. XR/XR chest 1V portable [id number] IMPRESSION: Unremarkable chest radiograph.
--- NOTE | 2021-11-24 14:36 | ED_ITS ---
HPI - Weakness General: Chief complaint: Weakness Stated complaint: dizzy; weakness; hx of seizure activity Time Seen by Provider: 11/24/21 12:38 History of Present Illness: Patient is a 61-year-old male comes to the ED with dizziness, weakness and lightheaded. He has been having the symptoms now for over a year. He says over the past couple weeks his symptoms have gotten worse. He endorses feeling lightheaded and dizzy every time he stands up and in the past has had some near syncopal episodes as well. He describes some of his dizziness as room spinning. He reports having dizziness and lightheadedness these walking from his couch into another room. Endorses having episodes of chest pain that happen sporadically over the past year. He says his most recent episode of chest pain occurred while he was at rest yesterday and lasted for 15 to 20 minutes. Patient does endorse working outside in the heat daily at his job. He says he drinks a lot of water throughout the day. Denies any current chest pain. Associated symptoms: Reports chest pain; Denies chills, dysuria, fever(s), headache(s), nausea or vomiting Review of Systems Const: Denies: fever(s), chills or fatigue Eyes: Denies: change in vision or eye discomfort ENMT: Denies: throat pain, odynophagia, nasal discharge or nasal congestion Card: Reports: chest pain and lightheadedness; Denies: palpitations, edema, swelling of feet/ankles, dyspnea on exertion or orthopnea Resp: Denies: dyspnea, productive cough or non-productive cough GI: Denies: abdominal pain, nausea, vomiting, diarrhea, constipation or hematochezia : Denies: flank pain, difficulty urinating, dysuria or hematuria Musc: Denies: neck pain, back pain or extremity swelling Skin/Breast: Denies: rash or new lesions Neuro: Reports: dizziness; Denies: headache(s), numbness in extremities or weakness in extremities FOR[facility] ED PFSH: Medical History Chronic headaches Pulmonary emboli Vertigo Surgical History H/O circumcision H/O esophagogastroduodenoscopy (01/08/20) esophagitis, gastritis, duodenitis History of throat surgery S/P IVC filter Status post colonoscopy with polypectomy (01/08/20) sigmoid polyp Status post hip surgery Status post right inguinal hernia repair Family History Denies family history of Diabetes CAD (coronary artery disease) Anesthesia complication Bleeding disorder Cancer Social History Smoking and tobacco status: current every day smoker Alcohol intake: never Household members: significant other Marital status: Single Current occupational status: employed History of recent travel: No Physical Exam Const: COMMON NORMALS: patient oriented x3 and alert GENERAL APPEARANCE: cooperative HENMT: COMMON NORMALS: normocephalic HEAD & SCALP: normocephalic MOUTH: Normal oral and palatal mucosa present THROAT: posterior oropharynx normal and uvula midline Eye: COMMON NORMALS: Equal, round and reactive pupils present, EOMs intact bilaterally and conjunctivae normal CONJUNCTIVA: Yes conjunctivae normal PUPIL: Yes Equal, round and reactive pupils present Neck/C-Spine: COMMON NORMALS: supple GENERAL: Yes normal visual inspection Resp: COMMON NORMALS: normal respiratory effort, No retractions, No use of accessory muscles and clear to auscultation bilaterally AUSCULTATION: clear to auscultation bilaterally Cardio: COMMON NORMALS: regular rate, regular rhythm, S1 normal heart sound present, S2 normal heart sound present, No gallops present (Cardio), No clicks present (Cardio), No murmurs present (Cardio) and Peripheral pulses 2+ throughout RATE: regular rate RHYTHM: regular rhythm HEART SOUNDS: S1 normal heart sound present and S2 normal heart sound present PERIPHERAL PULSES: Peripheral pulses 2+ throughout GI: COMMON NORMALS: Normal to inspection, nondistended, normoactive bowel sounds present, Soft to palpation, non-tender and no masses PALPATION: Yes Soft to palpation : COMMON NORMALS: Yes no CVA tenderness BLADDER/KIDNEY EXAM: Yes no CVA tenderness Back/Pelvis: COMMON NORMALS: no CVA tenderness Extremity: COMMON NORMALS: normal to inspection Neuro: COMMON NORMALS: patient oriented x3, CN's II-XII intact bilaterally, moves all extremities, no focal motor deficits and no sensory deficits noted SENSORIUM/ORIENTATION: Yes alert COORDINATION/BALANCE: yegung-um-gqor test normal and No dvys-pb-edhm test normal (Patient was unable to perform ncfm-rp-vymk test due to weakness.) SPEECH: speech normal SENSORY EXAM: Yes extremities (intact) MOTOR EXAM: Pronator motor function not present and Abnormal motor strength present (Bilateral lower extremity weakness.) COORDINATION: iixuqj-py-ceuk test normal and qthg-zn-tjdl test abnormal (Patient was unable to perform aiip-lh-sklo test due to weakness.) OTHER: Patient can hardly sit up in bed due to weakness and dizziness. Skin: GENERAL SKIN EXAM: dry skin Course Reevaluation(s): Reevaluation #1: I went in again to reassess patient and he appears even weaker and is unable to even sit up in bed by himself. Due to patient's clinical appearance I do not think he would be stable for discharge home so I discussed patient case with Dr. Abbasi and he went into examine patient and afterwards he agreed patient needs to be admitted. I signed patient over to Dr. Abbasi when he will be contacting hospitalist and having patient admitted. Time: 16:40 Vital Signs: Vital signs: Vital Signs Temperature 97.7 F 11/25/21 07:25 Pulse Rate 75 11/25/21 07:25 Respiratory Rate 16 11/25/21 07:25 Blood Pressure 123/72 11/25/21 07:25 Pulse Oximetry 97 11/25/21 07:25 MDM - Weakness Medical Decision Making Patient is a 61-year-old male comes to the ED for lightheaded and dizziness. Vitals are stable. Labs are unremarkable. Troponin negative and EKG showed no acute findings. Chest x-ray was clear and head CT showed no acute findings. Upon exam patient does appear to have some weakness especially in lower extremities bilaterally. Went in again to reassess patient after IV fluids and he appears even weaker and is unable to even sit up in bed by himself. Due to patient's clinical appearance I do not think he would be stable for discharge home so I discussed patient case with Dr. Abbasi and he went into examine patient and afterwards he agreed patient needs to be admitted. I signed patient over to Dr. Abbasi when he will be contacting hospitalist and having patient admitted. Lab Data I reviewed the patient's lab results. : 11/25/21 05:06 06/22/22 05:06 Radiology Impressions Chest X-Ray 11/24/21 13:54 IMPRESSION: Unremarkable chest radiograph. Head CT 11/24/21 14:37 IMPRESSION: 1. No evidence of intracranial hemorrhage or mass effect. 2. Mild small vessel changes. Mild parenchymal volume loss. 3. Complete opacification LEFT maxillary sinus. Laboratory Results WBC 8.5 10^3/uL (4.0-10.0) 11/24/21 15:03 RBC 5.28 10^6/uL (4.1-5.3) 11/24/21 15:03 Hgb 15.6 g/dL (11.7-16.6) 11/24/21 15:03 Hct 46.6 % (42.0-52.0) 11/24/21 15:03 MCV 88.3 fl (80-94) 11/24/21 15:03 MCH 29.5 pg (28.0-34.0) 11/24/21 15:03 MCHC 33.5 g/dL (30.0-36.0) 11/24/21 15:03 RDW 13.0 % (12.1-15.1) 11/24/21 15:03 Plt Count 264 10^3/cmm (130-400) 11/24/21 15:03 MPV 10.5 fL (7.4-10.4) H 11/24/21 15:03 Neut % (Auto) 65.4 % 11/24/21 15:03 Lymph % (Auto) 26.3 % 11/24/21 15:03 [place] % (Auto) 6.0 % 11/24/21 15:03 Eos % (Auto) 1.1 % 11/24/21 15:03 Baso % (Auto) 0.7 % 11/24/21 15:03 Neut # (Auto) 5.55 10^3/uL (1.8-7.7) 11/24/21 15:03 Lymph # (Auto) 2.2 10^3/uL (0.8-4.8) 11/24/21 15:03 [place] # (Auto) 0.5 10^3/uL (0.2-0.9) 11/24/21 15:03 Eos # (Auto) 0.1 10^3/uL (0.0-0.8) 11/24/21 15:03 Baso # (Auto) 0.1 10^3/uL (0.0-0.1) 11/24/21 15:03 Nucleated RBC % (auto) 0 % 11/24/21 15:03 Nucleated RBCs # 0.0 /100WBC 11/24/21 15:03 Sodium 137 mmol/L (136-145) 11/24/21 15:03 Potassium 4.5 mmol/L (3.5-5.1) 11/24/21 15:03 Chloride 104 mmol/L (98-107) 11/24/21 15:03 Carbon Dioxide 26 mmol/L (22-29) 11/24/21 15:03 Anion Gap 11.5 (5-19) 11/24/21 15:03 BUN 12 mg/dL (8-23) 11/24/21 15:03 Creatinine 0.9 mg/dL (0.7-1.2) 11/24/21 15:03 GFR Calculation 85.8 mL/min (90-130) L 11/24/21 15:03 Glucose 84 mg/dL (65-115) 11/24/21 15:03 Calculated Osmolality 283 mOsm/kg (285-295) L 11/24/21 15:03 Calcium 8.6 mg/dL (8.5-10.5) 11/24/21 15:03 Total Bilirubin 0.4 mg/dL (0.15-1.2) 11/24/21 15:03 AST 12 U/L (0-40) 11/24/21 15:03 ALT 19 U/L (0-41) 11/24/21 15:03 Alkaline Phosphatase 88 IU/L (40-130) 11/24/21 15:03 Troponin T Baseline 6 ng/L (0-15) 11/24/21 15:03 Troponin T 120 Minute 6.23 ng/L (0-15) 11/24/21 17:10 Delta Troponin T 0.12 ABS# (0-10) 11/24/21 17:10 NT-Pro-B Natriuret Pep 189 pg/mL (0-125) H 11/24/21 15:03 Total Protein 6.7 g/dL (6.6-8.7) 11/24/21 15:03 Albumin 3.8 g/dL (3.5-5.2) 11/24/21 15:03 Globulin 2.9 g/dL (1.3-4.6) 11/24/21 15:03 Vitamin B12 364 pg/mL (232-1245) 11/24/21 15:03 Folate 11.6 ng/mL (4.5-32.2) 11/24/21 15:34 TSH 1.49 uIU/mL (0.27-4.20) 11/24/21 15:03 EKG Data EKG 1: EKG interpretation date: 11/24/21 Interpretation: Sinus bradycardia, 58 bpm, no ST segment elevation or depression seen. No other acute EKG findings. Discharge Plan Discharge Patient Disposition: Admitted As Inpatient Admit Provider: Anthony Ochoa Clinical Impression: Truncal ataxia, Vertigo, Gait instability, Light headedness Condition: Stable Coding Level of Care Code ED Room Service Clerk for Chg Fwd Exam Comprehensive
--- NOTE | 2021-11-24 14:37 | CT_ITS ---
WS: [id number] CT HEAD TECHNIQUE: Noncontrast CT of the head obtained from the skullbase to the vertex. CLINICAL INFORMATION: dizziness and lightheaded COMPARISON: CT 2015 DLP: 948.[address] scans at [facility] use at least one of these dose optimization techniques: automated e xposure control; mA and/or kV adjustment per patient size (includes targeted exams where dose is matc hed to clinical indication); or iterative reconstruction. FINDINGS: No evidence of intracranial hemorrhage or mass effect. Ventricular system and basal cisterns are crews nt. Mild small vessel changes with mild parenchymal volume loss. No extra-axial fluid collections. No evidence of mass or mass effect. Normal epstein-white differentiation. Opacification LEFT maxillary sinus. Paranasal sinuses otherwise well aerated. Mastoid air cells well aerated. Normal posterior nasopharynx. CT/CT head wo con* [id number] IMPRESSION: 1. No evidence of intracranial hemorrhage or mass effect. 2. Mild small vessel changes. Mild parenchymal volume loss. 3. Complete opacification LEFT maxillary sinus.
[2021-11-24] MEDS: sodium chloride 0.9% 500 ML 999 ML IV (15:11)
[2021-11-24 15:37] LABS: Basophils # 0.1 10^3/uL (0.0-0.1); Basophils % 0.7 %; Eosinophils # 0.1 10^3/uL (0.0-0.8); Eosinophils % 1.1 %; Hematocrit 46.6 % (42.0-52.0); Hemoglobin 15.6 g/dL (11.7-16.6); Lymphocytes # 2.2 10^3/uL (0.8-4.8); Lymphocytes % 26.3 %; Mean Corpuscular HGB Conc 33.5 g/dL (30.0-36.0); Mean Corpuscular Hemoglobin 29.5 pg (28.0-34.0); Mean Corpuscular Volume 88.3 fl (80-94); Mean Platelet Volume 10.5 fL (7.4-10.4); Monocytes # 0.5 10^3/uL (0.2-0.9); Neutrophils # 5.55 10^3/uL (1.8-7.7); Neutrophils % 65.4 %; Nucleated Red Blood Cells % 0 %; Platelet Count 264 10^3/cmm (130-400); Red Blood Count 5.28 10^6/uL (4.1-5.3); White Blood Count 8.5 10^3/uL (4.0-10.0)
--- NOTE | 2021-11-24 15:54 | ECG_ITS ---
[facility] Test Date: 2021-11-24 Pat Name: Aguila Teresa Department: Room: Gender: Male [employer] Worker: : 1960 Requested By: Tony Sanabria Order Number: [id number] Uri MD: Trinh Dial M.D. Measurements Intervals [place] Rate: 54 P: 59 [place]: 172 QRS: 47 QRSD: 97 T: 44 QT: 404 QTc: 385 Interpretive Statements SINUS BRADYCARDIA Compared to ECG 11/24/2021 14:07:12 Myocardial infarct finding no longer present Electronically Signed On 11-24-2021 22:37:36 CDT by Trinh Dial M.D. [id number]
[2021-11-24 16:00] LABS: Troponin(5th) Baseline 6 ng/L (0-15)
[2021-11-24 16:15] LABS: Alanine Aminotransferase 19 U/L (0-41); Albumin Level 3.8 g/dL (3.5-5.2); Alkaline Phosphatase 88 IU/L (40-130); Anion Gap 11.5 (5-19); Aspartate Amino Transferase 12 U/L (0-40); Blood Urea Nitrogen 12 mg/dL (8-23); Calcium 8.6 mg/dL (8.5-10.5); Carbon Dioxide 26 mmol/L (22-29); Chloride 104 mmol/L (98-107); Globulin 2.9 g/dL (1.3-4.6); Glomerular Filtration Rate 85.8 mL/min (90-130); Glucose 84 mg/dL (65-115); NT Pro B Type Natriuretic Pept 189 pg/mL (0-125); Osmolality Calculated 283 mOsm/kg (285-295); Potassium 4.5 mmol/L (3.5-5.1); Sodium 137 mmol/L (136-145); Total Bilirubin 0.4 mg/dL (0.15-1.2); Total Protein 6.7 g/dL (6.6-8.7)
[2021-11-24 17:50] LABS: Troponin 5 2HR 6.23 ng/L (0-15)
[2021-11-24 18:18] LABS: Troponin 5 2HR Delta 0.12 ABS# (0-10)
--- NOTE | 2021-11-24 19:02 | P.HP_ITS ---
Providers/Chief Complaint Admitting Physician: Anthony Ochoa Chief Complaint: dizzy; weakness; hx of seizure activity History of Present Illness Pleasant 61-year-old gentleman has been having progressive weakness over the past 6 months or so, however, reports much worse in the last 3 days, especially in lower extremities, to the point he is currently unable to sit up on his own. Reports for the last few years has been some diplopia, however, recently has been getting dizziness . States that he his head feels like it is int ermittently swimming , especially if he looks in different directions or after getting up and trying to walk. He reports he has been getting gradually weaker, to the point he could not perform his duties at work, reports some episodes where he falls down several times at work. Possibly even with syncope as he did not remember falling down. Reports sometimes the weakness and dizziness will start after an episode of diarrhea, and reports that 4-5 weeks ago had episodes of kaylyn blood in the stool. Reports that about a month ago he had problems with his back which was hurting. He has been taking some pain medications, he thinks could be ibuprofen, and also received a course of steroid in ER. Has been taking some antacids. Since 4-5 weeks or so has been having diarrhea. Denies taking antibiotics. Diarrhea initially as he mentioned with BRBPR, which she is told was thought to be perhaps due to hemorrhoids, subsequently green, now brown. Denies pain, although does get lower back pain if he is trying to lift his legs or move them around. Reports occasional loss of urinary bladder control. He does have history of PE after hip replacement, however, he denies any significant shortness of breath. Denies orthopnea. Or lower extremity edema. Occasionally gets some chest pain on the right side. 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 Did not notice exacerbating or alleviating factors, although did happen while he was working. Pain was not worse with insp iration. Notes that it felt like heartburn, shortly after he had the loose bowel movement with BRBPR. He thinks he may have had a colonoscopy in the past. Denies ever having an EGD. Review of Systems Const: Reports: fatigue; Denies: fever(s), chills, body aches or malaise Eyes: Denies: change in vision, eye discomfort or eye redness ENMT: Denies: throat pain, oral sores or ear or mastoid pain Card: Reports: chest pain; Denies: edema, pre-syncope or dyspnea on exertion Resp: Denies: dyspnea, productive cough, change in phlegm color or hemoptysis GI: Reports: nausea, diarrhea and hematochezia; Denies: abdominal pain, vomiting, constipation or melena : Denies: flank pain, difficulty urinating, urinary frequency or hematuria Musc: Reports: muscle weakness; Denies: back pain, extremity swelling, joint swelling or joint redness Skin/Breast: Denies: rash or new lesions Neuro: Reports: weakness in extremities, lack of coordination, frequent falls, dizziness and vertigo; Denies: headache(s), numbness in extremities, confusion or seizure-like activity Endo: Denies: polyuria or polydipsia Calvin/Lymph: Denies: easy bleeding or tender lymph nodes All/Imm: Denies: urticaria or tongue swelling Medications/Allergies Home Medications Medication Instructions Recorded Confirmed Last Taken Type omeprazole 20 mg capsule,delayed 20 mg PO DAILY PRN 11/24/21 11/24/21 11/24/21 History release Allergies Allergy/AdvReac Type Severity Reaction Status Date / Time codeine Allergy ALGY-Rash Verified 11/24/21 12:52 Penicillins Allergy ALGY-Rash Verified 11/24/21 12:52 PFSH Acute PFSH: Medical History Chronic headaches Pulmonary emboli Vertigo Surgical History H/O circumcision H/O esophagogastroduodenoscopy (01/08/20) esophagitis, gastritis, duodenitis History of throat surgery S/P IVC filter Status post colonoscopy with polypectomy (01/08/20) sigmoid polyp Status post hip surgery Status post right inguinal hernia repair Family History Denies family history of Diabetes CAD (coronary artery disease) Anesthesia complication Bleeding disorder Cancer Social History Smoking and tobacco status: current every day smoker Alcohol intake: never Household members: significant other Marital status: Single Current occupational status: employed History of recent travel: No Vitals/I&O/Wt Last Vital Signs Temp 97.6 F 11/24/21 18:37 Pulse 60 11/24/21 18:37 Resp 18 11/24/21 18:37 BP 119/82 11/24/21 18:37 Pulse Ox 97 11/24/21 18:37 11/24/21 11/24/21 11/24/21 06:59 14:59 22:59 Intake Total 500 / 500 Balance 500 / 500 Weight last 48 hrs Weight 106.594 kg Physical Exam Const: COMMON NORMALS: alert GENERAL APPEARANCE: cooperative ORIENTATION/CONSCIOUSNESS: Yes awake HENMT: COMMON NORMALS: normocephalic, EAC's normal, Normal external nose present and moist oral mucous membranes HEAD & SCALP: normocephalic NOSE: Normal external nose present EXTERNAL AUDITORY CANAL: EAC's normal Neck/C-Spine: COMMON NORMALS: no meningeal signs Chest: CHEST: Yes Symmetrical chest wall rise Resp: COMMON NORMALS: clear to auscultation bilaterally AUSCULTATION: clear to auscultation bilaterally Cardio: COMMON NORMALS: regular rate, regular rhythm and No murmurs present (Cardio) RATE: regular rate RHYTHM: regular rhythm GI: COMMON NORMALS: Normal to inspection, nondistended, normoactive bowel sounds present, Soft to palpation and non-tender PALPATION: Yes Soft to palpation Extremity: COMMON NORMALS: no pedal edema NARRATIVE EXTREMITY EXAM: Straight leg raise negative, but lower back pain w attempted active leg elevation Neuro: COMMON NORMALS: moves all extremities SENSORIUM/ORIENTATION: Yes alert MENINGEAL SIGNS: Yes no meningeal signs COORDINATION/BALANCE: tzpijf-pg-atme test normal (But slow, with some tremor BL UE), No fkef-wj-btyv test normal (Weak BL LE, lower back pain w attempt) and other SPEECH: speech normal SENSORY EXAM: Yes extremities (no gross sensory loss, symmetrical BL, could not elicit sensory level) MOTOR EXAM: Other motor observations present (4/5 BL UE, 2-3/5 BL LE) OTHER: He is alert, following directions. No trouble driving. Horizontal or vertical. Did not elicit vertigo with tracking. Visual patel full to confrontation. DTR normal present at the knees BL, possibly slightly heper-reflexive Psych: COMMON NORMALS: mental status grossly normal Skin: COMMON NORMALS: no wounds RASHES: no rashes OTHER: Cool to touch skin, more so acrally, no cyanosis Data : 11/24/21 15:03 11/24/21 15:03 A&P Assessment and plan (1) Vertigo: Reports ongoing vertigo, some diplopia for a while, up to 6 months, diplopia perhaps after 2 years. However, lack of coordination, weakness, difficulty walking much worse in the last 3 days or so. Much difficulty in performing linf-nm-nzky bilaterally. Some tremor, sluggish, but better FNF. Did not elicit vertigo. Smoking history. At risk of CVA, discussed with him, and additionally assessed with MRI of the brain, negative with concern for possibility of neurodegenerative conditions versus with contrast. Status: Acute (2) Gait instability: Additionally with lower back pain, lower extremity weakness. Some loss of cont rol urinary bladder. Assess MRI thoracic and lumbar spine. Check TSH, B12, folic acid. With diarrhea, consideration of GBS, symptoms not responding to Giurgius at this time. Monitor for any changes or progression. Status: Acute (3) Bilateral leg weakness: As above. Status: Acute (4) Falls: Multiple falls, but also possible syncopal episode, episodes of chest pain. Additional assessment for daily. Complete troponin EKG series. Noted sinus bradycardia, 50s-60s. Monitor on telemetry. He has also had persistent diarrhea he reports over the last 4 weeks. We will give gentle hydration. Also reports hematochezia, recheck blood count. Status: Acute (5) Hematochezia: Reports may be taking ibuprofen at home. Discussed with him to avoid NSAIDs. He had also received 7-day course of steroid about a month ago. Follow-up blood counts. Check Hemoccult. Continue PPI. PPI twice daily for now. Follow-up with endoscopic evaluation. Status: Acute (6) Diarrhea: Stool studies Status: Acute (7) Light headedness: As above. Orthostatics were okay. Additionally will assess duplex of IVC with history of IVC filter. He is not on anticoagulation. Currently not safe for anticoagulation. Status: Acute Plan Smoking addiction: Encourage cessation. Nicotine replacement cravings. History of chronic headaches Recent history of lower back pain for which received a course of steroid pain Attestations Medical Necessity Statement*: Place in observation for additional assessment of progressive weakness, lower extremity weakness, falls, vertigo, lightheadedness, falls with possible syncope, worse in the last 3 days. 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
--- NOTE | 2021-11-24 19:04 | USCV_ITS ---
Aguila Teresa Age: 61 Gender: M : 1960 Exam Date: 11/24/2021 21:28 Ordering Phys: Anthony Ochoa MD Technologist: CHRIS Exam Location: [facility] [place] Indication: h/o filter Findings appears wnl The inferior vena cava was identified and indurated. It measured 2.85 cm in diameter in the region of the filter. Conclusions The inferior vena cava was identified and was found to be 2.85 cm in diameter at the region of the filter No Doppler studies were performed Dr Trinh Dila MD [facility] (Electronically Signed) Final Date: 25 November 2021 20:04 S
--- NOTE | 2021-11-24 19:24 | USCV_ITS ---
Aguila Teresa Age: 61 Gender: M : 1960 Exam Date: 11/24/2021 20:58 Ordering Phys: Anthony Ochoa MD Technologist: CHRIS Exam Location: [facility] – [place] Indication: chronic chest pain, weakness, syncopal events since head injury on the job 2013. No hx cardiac intervention per patient. BP: 124 / 76 HR: 62 Rhythm: Sinus Technical Quality: Adequate MEASUREMENTS (Male / Female) Normal Values 2D ECHO LV Diastolic Diameter PLAX 4.7 cm 4.2 - 5.9 / 3.9 - 5.3 cm LV Systolic Diameter PLAX 2.9 cm IVS Diastolic Thickness 1.2 cm 0.6 - 1.0 / 0.6 - 0.9 cm IVS Systolic Thickness 1.9 cm LVPW Diastolic Thickness 1.1 cm 0.6 - 1.0 / 0.6 - 0.9 cm LVPW Systolic Thickness 1.8 cm LVOT Diameter 2.0 cm LV Ejection Fraction 2D Teich 69.8 % LV Ejection Fraction MOD 2C 73.2 % LV Ejection Fraction 2C AL 75.8 % LA Diameter 3.8 cm LA Width 3.4 cm LA Height 5.3 cm RA Width 3.5 cm RA Height 4.5 cm Aorta at Sinotubular Diameter 3.0 cm IVC Diameter 1.7 cm M-MODE Aortic Annulus Diameter 3.3 cm LA Ao Ratio MM 1.1 MV E Point Septal Separation 0.4 cm DOPPLER AV Peak Velocity 113.0 cm/s LVOT Peak Velocity 81.0 cm/s AV Area Cont Eq vti 2.6 cm squared AV Area Cont Eq pk 2.3 cm squared MV Peak Velocity 84.0 cm/s MV Area PHT 2.8 cm squared Mitral E to A Ratio 1.4 MV E' Velocity 43.0 cm/s Mitral E to MV E' Ratio 6.8 Mitral E to LV E' Lateral Ratio 6.1 Mitral E to LV E' Septal Ratio 7.8 TR Peak Velocity 208.7 cm/s TR Peak Gradient 17.4 mmHg TV Peak E Velocity 41.0 cm/s Right Atrial Pressure 5.0 mmHg Pulmonary Artery Systolic Pressu 22.4 mmHg PV Peak Velocity 113.0 cm/s RV Acceleration Time 0.1 s RV Ejection Time 0.4 s RV AcT/ET 0.3 FINDINGS Left Ventricle Normal left ventricular size, systolic function and wall thickness, with no regional wall motion abnormalities. Left ventricular ejection fraction is estimated at 70 %. Normal diastolic function. Right Ventricle Normal right ventricular size and systolic function. Right ventricular systolic pressure 21 mmHg. Right Atrium Normal right atrial size. Right atrial pressure estimated at 3 mm Hg. Left Atrium Normal left atrial size. Mitral Valve Structurally normal mitral valve. No mitral valve stenosis. No mitral valve regurgitation. Aortic Valve Structurally normal trileaflet aortic valve. No aortic valve stenosis. No aortic valve regurgitation. Tricuspid Valve Structurally normal tricuspid valve. No tricuspid valve stenosis. Trace tricuspid valve regurgitation. Pulmonic Valve Structurally normal pulmonic valve. No pulmonary valve stenosis. Trace pulmonary valve regurgitation. Pericardium No pericardial effusion. Aorta Normal size aortic root and proximal ascending aorta. IVC Normal IVC dimension with >50% respiratory change of the inferior vena cava. CONCLUSIONS 1. Normal left ventricular size, systolic function and wall thickness, with no regional wall motion abnormalities. Left ventricular ejection fraction is estimated at 70 %. Normal diastolic function. 2. Normal pulmonary artery pressure. 3. No significant valvular abnormality. 4. No prior similar studies to compare. Tesha Negrete MD (Electronically Signed) Final Date: 25 November 2021 14:58 S
--- NOTE | 2021-11-24 19:54 | ECG_ITS ---
[facility] Test Date: 2021-11-24 Pat Name: Aguila Teresa Department: Room: 272 Gender: Male Dopeman: : 1960 Requested By: Tony Sanabria Order Number: [id number] Uri MD: Trinh Dial M.D. Measurements Intervals [place] Rate: 53 P: 2 MT: 181 QRS: 27 QRSD: 92 T: 44 QT: 402 QTc: 381 Interpretive Statements SINUS BRADYCARDIA Compared to ECG 11/24/2021 15:11:58 No significant changes Electronically Signed On 11-24-2021 22:41:27 CDT by Trinh Dial M.D. [email or web address] [id number]
[2021-11-24] MEDS: pantoprazole 40 mg SDV IVP (20:06)
[2021-11-24] MEDS: lactated ringers 1,000 ML 75 ML IV (20:06)
[2021-11-24 20:21] LABS: Thyroid Stimulating Hormone 1.49 uIU/mL (0.27-4.20); Vitamin B12 364 pg/mL (232-1245)
[2021-11-24 21:15] LABS: Folate Level 11.6 ng/mL (4.5-32.2)
[2021-11-24 22:05] LABS: Troponin 5 6HR 6.92 ng/L (0-15)
[2021-11-24 22:12] LABS: Troponin 5 6HR Delta 0.92 ng/L (0-12)
[2021-11-25] VITALS (8 sets, daily range): BP systolic 121–130; BP diastolic 71–79; PULSE 60–75; RESP 13–18; TEMP 36.4–37; O2SAT 94–98
[2021-11-25 05:36] LABS: Basophils # 0.1 10^3/uL (0.0-0.1); Basophils % 0.8 %; Eosinophils # 0.1 10^3/uL (0.0-0.8); Eosinophils % 1.5 %; Hematocrit 41.9 % (42.0-52.0); Hemoglobin 14.2 g/dL (11.7-16.6); Lymphocytes # 1.9 10^3/uL (0.8-4.8); Lymphocytes % 26.4 %; Mean Corpuscular HGB Conc 33.9 g/dL (30.0-36.0); Mean Corpuscular Hemoglobin 29.5 pg (28.0-34.0); Mean Corpuscular Volume 87.1 fl (80-94); Mean Platelet Volume 10.2 fL (7.4-10.4); Monocytes # 0.5 10^3/uL (0.2-0.9); Monocytes % 7.2 %; Neutrophils % 63.8 %; Nucleated Red Blood Cells % 0 %; Platelet Count 247 10^3/cmm (130-400); Red Blood Count 4.81 10^6/uL (4.1-5.3); Red Cell Distribution Width 12.7 % (12.1-15.1); White Blood Count 7.4 10^3/uL (4.0-10.0)
[2021-11-25 05:55] LABS: Anion Gap 11.1 (5-19); Blood Urea Nitrogen 13 mg/dL (8-23); Calcium 8.5 mg/dL (8.5-10.5); Carbon Dioxide 25 mmol/L (22-29); Chloride 104 mmol/L (98-107); Glucose 95 mg/dL (65-115); Osmolality Calculated 282 mOsm/kg (285-295); Potassium 4.1 mmol/L (3.5-5.1); Sodium 136 mmol/L (136-145)
[2021-11-25] MEDS: pantoprazole 40 mg SDV IVP ×2 (06:09→18:03)
[2021-11-25] MEDS: lactated ringers 1,000 ML 75 ML IV ×2 (08:56→21:50)
--- NOTE | 2021-11-25 19:45 | P.PN_ITS ---
Subjective Subjective: He had a better day today. His strength is improving. He overall reports feeling better. But able to lift legs off of the bed today, for me able to lift up to 30 degrees, still reporting back pain. Did better with physical therapy. In fact also got up to walk. Got mildly woozy trying to sit up at the edge of the bed this morning, but says carryover of time and feeling dissipated. No sensation of things spinning around him today. Vitals/I&O/Wt Last Vital Signs Temp 97.8 F 11/25/21 19:19 Pulse 63 11/25/21 19:19 Resp 18 11/25/21 19:19 BP 122/79 11/25/21 19:19 Pulse Ox 94 11/25/21 19:19 11/25/21 11/25/21 11/25/21 06:59 14:59 22:59 Intake Total 1562.5 / 1562.5 240 / 1802.5 Balance 1562.5 / 1562.5 240 / 1802.5 Weight last 48 hrs Weight 98.43 kg Weight 106.594 kg Physical Exam Const: COMMON NORMALS: alert GENERAL APPEARANCE: cooperative ORIENTATION/CONSCIOUSNESS: Yes awake HENMT: COMMON NORMALS: normocephalic, EAC's normal, Normal external nose present and moist oral mucous membranes HEAD & SCALP: normocephalic NOSE: Normal external nose present EXTERNAL AUDITORY CANAL: EAC's normal Neck/C-Spine: COMMON NORMALS: no meningeal signs Chest: CHEST: Yes Symmetrical chest wall rise Resp: COMMON NORMALS: clear to auscultation bilaterally AUSCULTATION: clear to auscultation bilaterally Cardio: COMMON NORMALS: regular rate, regular rhythm and No murmurs present (Cardio) RATE: regular rate RHYTHM: regular rhythm GI: COMMON NORMALS: Normal to inspection, nondistended, normoactive bowel sounds present, Soft to palpation and non-tender PALPATION: Yes Soft to palpation Extremity: COMMON NORMALS: no pedal edema NARRATIVE EXTREMITY EXAM: Straight leg raise negative, but lower back pain w attempted active leg elevation Neuro: COMMON NORMALS: moves all extremities SENSORIUM/ORIENTATION: Yes alert MENINGEAL SIGNS: Yes no meningeal signs COORDINATION/BALANCE: [id number] test normal and other SPEECH: speech normal SENSORY EXAM: Yes extremities (no gross sensory loss, symmetrical BL, could not elicit sensory level) MOTOR EXAM: Pronator motor function not present and Other motor observations present (5/5 BL UE, 3+/5 BL LE) COORDINATION: [id number] test normal and other OTHER: He is alert, following directions. No trouble tracking. Horizontal or vertical. Did not elicit vertigo with tracking. Visual patel full to confrontation. DTR normal present at the knees BL, possibly slightly heper-reflexive Psych: COMMON NORMALS: mental status grossly normal Skin: COMMON NORMALS: no wounds RASHES: no rashes OTHER: Warm, perfused Data : 11/25/21 05:06 11/25/21 05:06 A&P Assessment and plan (1) Vertigo: Today reported better. Reported some dizzy feeling when sitting up. Better, but sounded more orthostatic. Although orthostatics were good with PT. Again notieced having some persistently noted possibly mild facial droop and l eft side, although not always obvious. Speech normal. Pending MRI brain for assessment of possible CVA. Consideration of aspirin, although this may be risky at the time given recent hematochezia. Would want to be sure CVA was present. And should have follow-up endoscopic evaluation. Reports ongoing vertigo, some diplopia for a while, up to 6 months, diplopia perhaps after 2 years. However, lack of coordination, weakness, difficulty walking much worse in the last 3 days or so. Much difficulty in performing [id number] bilaterally. Some tremor, sluggish, but better FNF. Did not elicit vertigo. Smoking history. At risk of CVA, discussed with him, and additionally assessed with MRI of the brain, negative with concern for possibility of neurodegenerative conditions versus with contrast. Status: Acute (2) Gait instability: Today he is doing much better. He is overall much stronger. Appears a lot of this was secondary to dehydration, although still during my exam and difficulty lifting legs off the bed beyond 30 degree angle. Working his legs in this Additionally with lower back pain, lower extremity weakness. Some loss of control urinary bladder. Assess MRI thoracic and lumbar spine. Normal TSH, B12, folic acid. Pending assessment with MRI. Likely should be able to return home given overall significant improvement. No diarrhea. Did have some diarrhea previously. However, presentation, currently with significant improvement, not consistent with GBS. Monitor for any changes or progression. Status: Acute (3) Bilateral leg weakness: As above. Reported some intermittent urinary incontinence. Pending MRI of thoracic and lumbar spine. Status: Acute (4) Falls: Multiple falls, but also possible syncopal episode, episodes of chest pain. Additional assessment for daily. Complete troponin EKG series. Noted sinus bradycardia, 50s-60s. Monitor on telemetry. He has also had persistent diarrhea he reports over the last 4 weeks. We will give gentle hydration. Also reports hematochezia, recheck blood count 14.2 Status: Acute (5) Hematochezia: Reports may be taking ibuprofen at home. Discussed with him to avoid NSAIDs. He had also received 7-day course of steroid about a month ago. Follow-up blood counts. Requested Hemoccult. Continue PPI twice daily for now. Follow-up with endoscopic evaluation. Status: Acute (6) Diarrhea: Stool studies requested but so far no further stools. Diarrhea it seems resolved. Status: Acute (7) Light headedness: As above. Orthostatics were okay. Echocardiogram with normal ejection fraction. Normal diastolic function. No significant valvular abnormalities. Pending duplex of IVC with history of IVC filter. He is not on anticoagulation. Currently not safe for anticoagulation. Status: Acute Plan Smoking addiction: Encourage cessation. Nicotine replacement cravings. History of chronic headaches Recent history of lower back pain for which received a course of steroid Attestations Medical Necessity Statement*: Continue hospitalization pending additional work-up for possible CVA, MRI of spine for possibility of cord impingement with leg weakness, intermittent urinary bladder control loss. 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
[2021-11-26] VITALS: BP 131/84; PULSE 94; RESP 18; TEMP 37; O2SAT 97
[2021-11-26 04:00] VITALS: BP 129/83; PULSE 91; RESP 18; TEMP 36.6; O2SAT 95
[2021-11-26 06:00] VITALS: PULSE 57
[2021-11-26 06:04] LABS: Basophils % 0.5 %; Eosinophils # 0.1 10^3/uL (0.0-0.8); Eosinophils % 1.2 %; Hematocrit 44.8 % (42.0-52.0); Hemoglobin 14.7 g/dL (11.7-16.6); Lymphocytes # 2.1 10^3/uL (0.8-4.8); Lymphocytes % 26.3 %; Mean Corpuscular HGB Conc 32.8 g/dL (30.0-36.0); Mean Corpuscular Hemoglobin 29.5 pg (28.0-34.0); Mean Platelet Volume 10.6 fL (7.4-10.4); Monocytes # 0.5 10^3/uL (0.2-0.9); Monocytes % 6.9 %; Neutrophils # 5.04 10^3/uL (1.8-7.7); Neutrophils % 64.7 %; Nucleated Red Blood Cells % 0 %; Platelet Count 227 10^3/cmm (130-400); Red Blood Count 4.98 10^6/uL (4.1-5.3); Red Cell Distribution Width 12.7 % (12.1-15.1); White Blood Count 7.8 10^3/uL (4.0-10.0)
[2021-11-26] MEDS: pantoprazole 40 mg SDV IVP (06:28)
--- NOTE | 2021-11-26 07:14 | PC.NURSE ---
Bedside report received from HELGA Carmona.
[2021-11-26 07:18] VITALS: BP 132/77; PULSE 53; TEMP 36.4; O2SAT 96
[2021-11-26 10:33] VITALS: BP 113/69; PULSE 61; TEMP 36.5; O2SAT 99
[2021-11-26] MEDS: lactated ringers 1,000 ML 75 ML IV (10:51)
--- NOTE | 2021-11-26 14:00 | MR_ITS ---
WS: [id number] MRI HEAD WITH CONTRAST TECHNIQUE: Sagittal T1, T2 axial, T2 axial FLAIR, axial susceptibility weighted imaging, axial diffus ion weighted images, and coronal T2 images were obtained. Pre and post-T1 axial and post T1 coronal i mages. ADC and FSPGR images. CLINICAL INFORMATION: vertigo, progressive weakness COMPARISON: CT November 24, 2021 FINDINGS: No evidence of restricted diffusion to suggest acute ischemia. Ventricular system and basal cisterns are patent. Minimal small vessel changes. Mild parenchymal volume loss. Normal posterior fossa. Samanta l vascular flow voids at the skull base. No extra axial fluid collections. No evidence of mass or mas s effect. Opacification LEFT maxillary sinus with inspissated secretions. Mastoid air cells well aerated. Samanta l optic chiasm and pituitary infundibulum. Temporal lobes and hippocampal formations are normal in ap pearance. Normal cavernous sinuses and Meckel's cave. No abnormal intracranial enhancement. Normal vi sualized dural venous sinuses. MR/MR head wo/w con [id number] IMPRESSION: 1. No evidence of restricted diffusion to suggest acute ischemia. 2. Minimal small vessel changes with mild parenchymal volume loss. 3. Inspissated secretions in the LEFT maxillary sinus. 4. No hemosiderin on susceptibly weighted images. 5. Normal optic chiasm and pituitary infundibulum. 6. No abnormal intracranial enhancement.
--- NOTE | 2021-11-26 14:00 | MR_ITS ---
WS: [id number] MRI LUMBAR SPINE WITH CONTRAST TECHNIQUE: Sagittal T1, T2 and STIR imaging. Axial T1 and T2 imaging. Post gadolinium imaging was obt ained. CLINICAL INFORMATION: progressive LE weakness COMPARISON: MRI October 13, 2021 FINDINGS: Mild lumbar curve. No acute compression. No high-grade central canal stenosis. No abnormal gadolinium enhancement. L1-L2: Mild annular bulging. Mild facet arthropathy. Spinal canal and foramen are patent. L2-L3: Shallow central disc protrusion with impingement on the subarticular recess bilaterally. Mild central canal stenosis unchanged. Mild facet arthropathy. Mild RIGHT and no significant LEFT foramina l narrowing. L3-L4: Mild annular bulging. Slight effacement of ventral thecal sac. Mild facet arthropathy. Mild LE FT foraminal narrowing. L4-L5: Shallow central disc protrusion. Slight contact of the traversing L5 nerve roots bilaterally. Mild facet arthropathy. Mild bilateral foraminal narrowing. L5-S1: Tiny shallow RIGHT pericentral protrusion with a tiny annular fissure. No significant nerve ro ot impingement. Spinal canal foramen are patent. Mild facet arthropathy. No abnormal gadolinium enhancement. Small bilateral renal cysts. Visualized pelvic bony structures: Normal. Paravertebral soft tissues: Normal. MR/MR lumbar spine wo/w con [id number] IMPRESSION: Overall no remarkable changes compared to October 13, 2021. 1. Mild lumbar curve. No acute compression. No abnormal gadolinium enhancement . 2. Shallow central protrusion L2-L3 unchanged with mild central canal stenosis and slight impingement traversing RIGHT greater than LEFT L3 nerve roots. 3. Mild annular bulging L3-L4 with slight effacement of ventral thecal sac. 4. Shallow central protrusion L4-L5 with slight impingement traversing L5 nerv e roots bilaterally. 5. Tiny RIGHT pericentral disc protrusion L5-S1 with a tiny annular fissure. N o significant nerve root impingement. 6. Mild foraminal narrowing described above more prominent at LEFT L3-L4 and L EFT greater than RIGHT L4-L5.
--- NOTE | 2021-11-26 14:00 | MR_ITS ---
WS: [id number] MRI THORACIC SPINE WITH CONTRAST TECHNIQUE: Sagittal T1, T2 and STIR imaging. Axial T2 imaging. Post gadolinium imaging was obtained. CLINICAL INFORMATION: progressive LE weakness COMPARISON: None. FINDINGS: Mild thoracic curve. Mild thoracic kyphosis. No acute compression. A few Schmorl's nodes in the lower thoracic spine. No high-grade central canal stenosis. Cord signal is normal. No abnormal gadolinium enhancement. Adrenal glands are normal. Normal caliber thoracic aorta. Cervical spine appears patent on trader imag ing. Tiny LEFT pericentral protrusion T3-T4. No significant spinal canal narrowing. Tiny shallow central p rotrusion T4-T5. Mild facet arthropathy in the lower thoracic spine. No significant foraminal narrowing. MR/MR thoracic spine wo/w [id number] IMPRESSION: 1. No acute thoracic spine findings. 2. Mild thoracic curve. Mild thoracic kyphosis. 3. No acute compression fractures. No high-grade central canal stenosis. 4. Tiny shallow disc protrusions T3-T4 and T4-T5 without significant central c anal stenosis. 5. Mild facet arthropathy in the lower thoracic spine. 6. No abnormal gadolinium enhancement.
[2021-11-26 16:00] VITALS: BP 150/88; PULSE 78; TEMP 36.5; O2SAT 96
--- NOTE | 2021-11-26 19:35 | P.DS_ITS ---
Discharge Providers Date of Admission: 11/24/21 17:58 Date of Discharge: November 26, 2021 Attending Provider at Admission: Anthony Ochoa Attending Provider at Discharge: Anthony Ochoa Diagnoses at Discharge Discharge Diagnosis (1) Vertigo: Status: Acute (2) Gait instability: Status: Acute (3) Bilateral leg weakness: Status: Acute (4) Falls: Status: Acute (5) Hematochezia: Status: Acute (6) Diarrhea: Status: Acute (7) Light headedness: Status: Acute Reason for Visit Reason for Visit: dizzy; weakness; hx of seizure activity Brief History: Pleasant 61-year-old gentleman has been having progressive LE weakness over the past 6 months or so, however, reported much worse including generalized weakness in the last 3 days, especially in lower extremities, to the point he was unable to sit up on his own.? Reports for the last few years has been some diplopia, however, recently has been getting dizziness .? States that he his head feels like it is intermittently swimming , especially if he looks in different directions or after getting up and trying to walk.? He reported getting gradually weaker, to the point he could not perform his duties at work, reports some episodes where he fell down several times at work.? Possibly even with syncope as he did not remember falling down.? Reports sometimes the weakness and dizziness will start after an episode of diarrhea, and reports that 4-5 weeks ago had episodes of kaylyn blood in the stool.? Reported that about a month ago he had problems with his back which was hurting.? He has been taking some pain medications, he thinks could be ibuprofen, and also received a course of steroid in ER.? Has been taking some antacids.? Since 4-5 weeks or so has been having diarrhea.? Denies taking antibiotics.? Diarrhea initially as he mentioned with BRBPR, which she is told was thought to be perhaps due to hemorrhoids, subsequently green, now brown. Had lower back pain if he is trying to lift his legs or move them around. Reported occasional loss of urinary bladder control. 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 Denies orthopnea.? Or lower extremity edema. Occasionally gets some chest pain on the right side.? 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 Did not notice exacerbating or alleviating factors, although did happen while he was working.? Pain was not worse with inspiration.? Notes that it felt like heartburn, shortly after he had the loose bowel movement with BRBPR. He thinks he may have had a colonoscopy in the past.? Denies ever having an EGD. Hospital Course Hospital Course Troponin and EKG series were completed, without suggestion of acute ischemia. Assessment by TTE showed normal ejection fraction, normal diastolic function. No significant valvular abnormality. During hospitalization he had no further diarrhea, and no bloody bowel movements were noted. Hemoglobin remained stable. He was continued on PPI. He received IV hydration for dehydration. TSH, vitamin B12, folic acid were checked and were normal. He remained afebrile, without leukocytosis or suggestion of acute infection. Due to some minimal possible left-sided facial droop as well as coordination abnormalities, was assessed by MRI of the brain which was not suggestive of CVA. Noted inspissated secretions in the left maxillary sinus. Normal optic chiasm and pituitary infundibulum. No intracranial enhancement. Due to progressive lower extremity weakness with diarrhea, was assessed with consideration of possible GBS, although had preserved reflexes, symptoms also with significant improvement especially after rehydration, not suggestive of GBS. Due to noted back pain, intermittent urinary incontinence was assessed by enhanced MRI of the thoracic and lumbar spine, with thoracic spine showing tiny shallow disc protrusions T3-T4 and T4-T5 without significant central canal stenosis, mild facet arthropathy Thoracic spine MRI additional mild findings. MRI lumbar spine: 1. Mild lumbar curve. No acute compression. No abnormal gadolinium enhancement. 2. Shallow central protrusion L2-L3 unchanged with mild central canal stenosis and slight impingement traversing RIGHT greater than LEFT L3 nerve roots. 3. Mild annular bulging L3-L4 with slight effacement of ventral thecal sac. 4. Shallow central protrusion L4-L5 with slight impingement traversing L5 nerve roots bilaterally. 5. Tiny RIGHT pericentral disc protrusion L5-S1 with a tiny annular fissure. No significant nerve root impingement. 6. Mild foraminal narrowing described above more prominent at LEFT L3-L4 and LEFT greater than RIGHT L4-L5. He was assessed by physical therapy, and overall with significant improvement, improvement in overall strength, coordination, as well as was able to resume ambulation. However, with noted spinal stenosis, shoulders, at this time recommending work restriction to limit lifting, or work on heights or other dangerous locations. Please follow-up regarding spinal stenosis, in case of progressive or worsening symptoms, not responsive to continued home exercise program, consider referral additionally for assessment by orthospine or neurosurgery. Please also reassess blood count, reassess for recurrence of hematochezia, please refer for endoscopic evaluation of bloody stool with history of smoking. Assist in smoking cessation. Physical Exam Const: COMMON NORMALS: alert GENERAL APPEARANCE: cooperative ORIENTATION/CONSCIOUSNESS: Yes awake HENMT: COMMON NORMALS: normocephalic, EAC's normal, Normal external nose present and moist oral mucous membranes HEAD & SCALP: normocephalic NOSE: Normal external nose present EXTERNAL AUDITORY CANAL: EAC's normal Neck/C-Spine: COMMON NORMALS: no meningeal signs Chest: CHEST: Yes Symmetrical chest wall rise Resp: COMMON NORMALS: clear to auscultation bilaterally AUSCULTATION: clear to auscultation bilaterally Cardio: COMMON NORMALS: regular rate, regular rhythm and No murmurs present (Cardio) RATE: regular rate RHYTHM: regular rhythm GI: COMMON NORMALS: Normal to inspection, nondistended, normoactive bowel sounds present, Soft to palpation and non-tender PALPATION: Yes Soft to palpation Extremity: COMMON NORMALS: no pedal edema NARRATIVE EXTREMITY EXAM: Straight leg raise negative, but lower back pain w attempted active leg elevation Neuro: COMMON NORMALS: moves all extremities SENSORIUM/ORIENTATION: Yes alert MENINGEAL SIGNS: Yes no meningeal signs COORDINATION/BALANCE: fin wiley-to-nose test normal SPEECH: speech normal SENSORY EXAM: Yes extremities (no gross sensory loss, symmetrical BL, could not elicit sensory level) MOTOR EXAM: Pronator motor function not present and Other motor observations present (5/5 BL UE, 4/5 BL LE) COORDINATION: [id number] test normal OTHER: He is alert, following directions. No trouble tracking. Horizontal or vertical. Did not elicit vertigo with tracking. Visual patel full to confrontation. DTR normal present at the knees BL, possibly slightly heper-reflexive Psych: COMMON NORMALS: mental status grossly normal Skin: COMMON NORMALS: no wounds RASHES: no rashes OTHER: Warm, perfused Discharge Data Studies Completed and Pending Completed Studies During Hospitalization Category Date Time Status CT head wo con* [id number] Urgent Cat Scan 11/24/21 14:37 Completed XR chest 1V portable [id number] Stat Exams 11/24/21 13:54 Completed MR head wo/w con [id number] Routine MRI 11/26/21 14:00 Completed MR lumbar spine wo/w con [id number] Routine MRI 11/26/21 14:00 Completed MR thoracic spine wo/w [id number] Routine MRI 11/26/21 14:00 Completed CV. echo complete* [id number] Routine Ultrasound 11/24/21 19:24 Completed US duplex IVC [CV duplex IVC [id number]] Routine Ultrasound 11/24/21 19:04 Completed Pending at discharge Category Date Time Status Enteric Parasite Panel by PCR Routine Lab 11/26/21 07:53 Received Radiology Impressions Chest X-Ray 11/24/21 13:54 IMPRESSION: Unremarkable chest radiograph. Head CT 11/24/21 14:37 IMPRESSION: 1. No evidence of intracranial hemorrhage or mass effect. 2. Mild small vessel changes. Mild parenchymal volume loss. 3. Complete opacification LEFT maxillary sinus. Head MRI 11/26/21 14:00 IMPRESSION: 1. No evidence of restricted diffusion to suggest acute ischemia. 2. Minimal small vessel changes with mild parenchymal volume loss. 3. Inspissated secretions in the LEFT maxillary sinus. 4. No hemosiderin on susceptibly weighted images. 5. Normal optic chiasm and pituitary infundibulum. 6. No abnormal intracranial enhancement. Lumbar Spine MRI 11/26/21 14:00 IMPRESSION: Overall no remarkable changes compared to October 13, 2021. 1. Mild lumbar curve. No acute compression. No abnormal gadolinium enhancement. 2. Shallow central protrusion L2-L3 unchanged with mild central canal stenosis and slight impingement traversing RIGHT greater than LEFT L3 nerve roots. 3. Mild annular bulging L3-L4 with slight effacement of ventral thecal sac. 4. Shallow central protrusion L4-L5 with slight impingement traversing L5 nerve roots bilaterally. 5. Tiny RIGHT pericentral disc protrusion L5-S1 with a tiny annular fissure. No significant nerve root impingement. 6. Mild foraminal narrowing described above more prominent at LEFT L3-L4 and LEFT greater than RIGHT L4-L5. Thoracic Spine MRI 11/26/21 14:00 IMPRESSION: 1. No acute thoracic spine findings. 2. Mild thoracic curve. Mild thoracic kyphosis. 3. No acute compression fractures. No high-grade central canal stenosis. 4. Tiny shallow disc protrusions T3-T4 and T4-T5 without significant central canal stenosis. 5. Mild facet arthropathy in the lower thoracic spine. 6. No abnormal gadolinium enhancement. Laboratory Results WBC 7.8 10^3/uL (4.0-10.0) 11/26/21 05:30 RBC 4.98 10^6/uL (4.1-5.3) 11/26/21 05:30 Hgb 14.7 g/dL (11.7-16.6) 11/26/21 05:30 Hct 44.8 % (42.0-52.0) 11/26/21 05:30 MCV 90.0 fl (80-94) 11/26/21 05:30 MCH 29.5 pg (28.0-34.0) 11/26/21 05:30 MCHC 32.8 g/dL (30.0-36.0) 11/26/21 05:30 RDW 12.7 % (12.1-15.1) 11/26/21 05:30 Plt Count 227 10^3/cmm (130-400) 11/26/21 05:30 MPV 10.6 fL (7.4-10.4) H 11/26/21 05:30 Neut % (Auto) 64.7 % 11/26/21 05:30 Lymph % (Auto) 26.3 % 11/26/21 05:30 Cataño % (Auto) 6.9 % 11/26/21 05:30 Eos % (Auto) 1.2 % 11/26/21 05:30 Baso % (Auto) 0.5 % 11/26/21 05:30 Neut # (Auto) 5.04 10^3/uL (1.8-7.7) 11/26/21 05:30 Lymph # (Auto) 2.1 10^3/uL (0.8-4.8) 11/26/21 05:30 Cataño # (Auto) 0.5 10^3/uL (0.2-0.9) 11/26/21 05:30 Eos # (Auto) 0.1 10^3/uL (0.0-0.8) 11/26/21 05:30 Baso # (Auto) 0.0 10^3/uL (0.0-0.1) 11/26/21 05:30 Nucleated RBC % (auto) 0 % 11/26/21 05:30 Nucleated RBCs # 0.0 /100WBC 11/26/21 05:30 Sodium 136 mmol/L (136-145) 11/25/21 05:06 Potassium 4.1 mmol/L (3.5-5.1) 11/25/21 05:06 Chloride 104 mmol/L (98-107) 11/25/21 05:06 Carbon Dioxide 25 mmol/L (22-29) 11/25/21 05:06 Anion Gap 11.1 (5-19) 11/25/21 05:06 BUN 13 mg/dL (8-23) 11/25/21 05:06 Creatinine 1.0 mg/dL (0.7-1.2) 11/25/21 05:06 GFR Calculation 76.0 mL/min (90-130) L 11/25/21 05:06 Glucose 95 mg/dL (65-115) 11/25/21 05:06 Calculated Osmolality 282 mOsm/kg (285-295) L 11/25/21 05:06 Calcium 8.5 mg/dL (8.5-10.5) 11/25/21 05:06 Total Bilirubin 0.4 mg/dL (0.15-1.2) 11/24/21 15:03 AST 12 U/L (0-40) 11/24/21 15:03 ALT 19 U/L (0-41) 11/24/21 15:03 Alkaline Phosphatase 88 IU/L (40-130) 11/24/21 15:03 Troponin T Baseline 6 ng/L (0-15) 11/24/21 15:03 Troponin T 120 Minute 6.23 ng/L (0-15) 11/24/21 17:10 Delta Troponin T 0.12 ABS# (0-10) 11/24/21 17:10 Troponin T Hi Sens 6Hr 6.92 ng/L (0-15) 11/24/21 21:30 Troponin T Hi Sens 6Hr Delta 0.92 ng/L (0-12) 11/24/21 21:30 NT-Pro-B Natriuret Pep 189 pg/mL (0-125) H 11/24/21 15:03 Total Protein 6.7 g/dL (6.6-8.7) 11/24/21 15:03 Albumin 3.8 g/dL (3.5-5.2) 11/24/21 15:03 Globulin 2.9 g/dL (1.3-4.6) 11/24/21 15:03 Vitamin B12 364 pg/mL (232-1245) 11/24/21 15:03 Folate 11.6 ng/mL (4.5-32.2) 11/24/21 15:34 TSH 1.49 uIU/mL (0.27-4.20) 11/24/21 15:03 Vitals Last Vital Signs Temp 97.7 F 11/26/21 16:00 Pulse 78 11/26/21 16:00 Resp 18 11/26/21 04:00 BP 150/88 11/26/21 16:00 Pulse Ox 96 11/26/21 16:00 Discharge Plan Discharge Patient Disposition: Home Condition: Stable Prescriptions: Continued omeprazole 20 mg Capsule,Delayed Release(Dr/Ec) 20 mg PO DAILY PRN (Reason: Acid Reflux) 0RF Discharge Orders: Discharge Order (Routine); Ordered 11/26/21 Ordered By: Anthony Ochoa Referrals: Leia Garza MD [Physician] - 12/10/21 2:00 pm (You have a new patient a ppointment with Leia Garaz on December 10, 2021 at 2:00 PM. If you have any questions or need to reschedule please call them at [phone].) Discharge Diet: Cardiac Discharge Activity: Increase activity as tolerated, Limit activity as instructed and As per PT/OT instructions Patient Instructions: GI Bleeding, How to Stop Smoking (GEN), Dehydration (GEN), Cigarette Smoking and Your Health (GEN), Lumbar Spinal Stenosis (GEN), Fall Prevention (GEN), Degenerative Disc Disease (GEN) Activity Restrictions/Additional Instructions: Please discuss with your primary doctor regarding spinal stenosis and lower extremity weakness which was transiently much worse at presentation. Discuss consideration of additional referral to orthospine or neurosurgery in case of recurrent/persistent/progressive symptoms. Please discuss also with your primary doctor regarding referral for endoscopic evaluation due to bright red blood in stool episode several weeks ago. Please avoid ibuprofen or other NSAIDs. Continue omeprazole. In case of recurrent or persistent bloody stools or dark black stools, or additional symptoms of generalized weakness, or any fainting, seek medical attention immediately. In case of recurrence of diarrhea, please discuss with your primary doctor additional assessment. Avoid dehydration. Avoid continuing to stand or sit up in case you get lightheaded. If you do get lightheaded after sitting up or standing rapidly, please lie down immediately to avoid fainting and falling down. Please stop smoking. Return to work Tuesday if no additional symptoms, but avoid climbing ladders or working at heights or other dangerous locations. In case feeling unwell while driving, hand box coverer immediately and do not drive any further. Stand Alone Forms: Work/School Release Discharge Attestations Time Spent in Discharge Care*: greater than 30 min Quality Metrics Clinical Quality Measures [ No reported AMI, CVA or VTE this stay] Coding Level of Care Code Acute [facility] note Diagnoses Vertigo R42 Gait instability R26.81 Bilateral leg weakness R29.898 Falls W19.XXXA Hematochezia K92.1 Diarrhea R19.7 Light headedness R42
== END 2021-11-26 18:28 | disposition home or self-care (01) ==
LOC: ER 16:53 → MEDSURG 11-25 06:08
PROVIDERS: Admitting Provider Internal Medicine; Emergency Provider Physician Assistant; Visit Provider Internal Medicine
DX: R42 Dizziness and giddiness (principal); R26.81 Unsteadiness on feet; R29.898 Other symptoms and signs involving the musculoskeletal system; K92.1 Melena; R19.7 Diarrhea, unspecified; F17.210 Nicotine dependence, cigarettes, uncomplicated; Z91.81 History of falling
CPT/HCPCS: 36415; 70450; 70553; 71045; 72157; 72158; 80048; 80053; 82274; 82607; 82746; 83880; 84443; 84484; 85025; 87506; 93005; 93306; 93978; 96374; 97116; 97161; 97165; 99285; A9577; C9113; G0378; J7030

== ENCOUNTER 2023-02-12 17:32 | Emergency (ER) | payer BC, MEDICAID, SELFPAY ==
--- NOTE | 2023-02-12 17:37 | CTR_ITS ---
PROCEDURE INFORMATION: Exam: CT Head Without Contrast Exam date and time: 02/12/2023 5:33 PM Age: 62 years old Clinical indication: Stroke-like symptoms; Right facial droop TECHNIQUE: Imaging protocol: Computed tomography of the head without contrast. Radiation optimization: All CT scans at this facility use at least one of these dose optimization techniques: automated exposure control; mA and/or kV adjustment per patient size (includes targeted exams where dose is matched to clinical indication); or iterative reconstruction. Other technique: STROKE PROTOCOL was implemented. REPORTING DATA: Count of CT and Cardiac NM exams in prior 12 months: This patient has received 0 known CTs and 0 known cardiac nuclear medicine studies in the 12 months prior to the current study. COMPARISON: MR head wo/w con [id number] 11/26/2021 2:25 PM, head CT 11/24/2021 RADIATION DOSE METRICS: Total DLP (mGy-cm): 1088.38 FINDINGS: Brain: There is no evidence of infarct, tariq-white matter differentiation is preserved. There is no hemorrhage or extra-axial collection. There is no mass. Cerebral ventricles: There is no hydrocephalus. Paranasal sinuses: Complete opacification of the visualized portion of the left maxillary sinus also present on prior CT. Mastoid air cells: Visualized mastoid air cells are well aerated. Bones/joints: Unremarkable. No acute fracture. Soft tissues: Unremarkable. CT/CT head thrombolytic [id number] IMPRESSION: No intracranial lesion or injury and no change from prior CT. ASSESSMENT: ASPECTS ([place] Stroke Program Early CT Score) is 10.
[2023-02-12 17:38] LABS: Glucose Point of Care 110 mg/dL (70-110)
[2023-02-12 17:41] VITALS: BP 134/91; PULSE 96; RESP 18; TEMP 36.8; O2SAT 93; BMI 28.0
--- NOTE | 2023-02-12 17:42 | XRR_ITS ---
PROCEDURE INFORMATION: Exam: XR Chest Exam date and time: 02/12/2023 5:54 PM Age: 62 years old Clinical indication: Dyspnea; Additional info: CVA workup TECHNIQUE: Imaging protocol: Radiologic exam of the chest. Views: 1 view. COMPARISON: CR XR chest 1V portable [id number] 11/24/2021 2:00 PM FINDINGS: Lungs: Unremarkable. No consolidation. Pleural spaces: Unremarkable. No pleural effusion. No pneumothorax. Heart/Mediastinum: Unremarkable. No cardiomegaly. Bones/joints: Unremarkable. XR/XR chest 1V portable [id number] IMPRESSION: No acute findings.
--- NOTE | 2023-02-12 17:42 | ECG_ITS ---
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 Measurements Intervals [place] Rate: 91 P: 44 NH: 174 QRS: 28 QRSD: 94 T: 51 QT: 343 QTc: 424 Interpretive Statements SINUS RHYTHM Compared to ECG 11/24/2021 22:01:30 Sinus bradycardia no longer present Electronically Signed On 02-13-2023 10:53:33 CDT by Tristan Hendrix M.D. [email or web address] Aortic [email or web address]-ritt[facility] [id number]
--- NOTE | 2023-02-12 17:48 | PC.NURSE ---
PT PLACED ON CONTINUOUS NIBP, SPO2, AND CM
--- NOTE | 2023-02-12 17:53 | MRR_ITS ---
PROCEDURE INFORMATION: Exam: MR Head Without Contrast Exam date and time: 02/12/2023 6:17 PM Age: 62 years old Clinical indication: Weakness, extremity; Left; Additional info: Left sided tingling, reported facial droop; Started 02/11 TECHNIQUE: Imaging protocol: Magnetic resonance imaging of the head without contrast. COMPARISON: CT head thrombolytic [id number] 02/12/2023 5:33 PM FINDINGS: Brain: There is no evidence of infarct, tariq-white matter differentiation is preserved. There is no hemorrhage or extra-axial collection. There is no mass. There is no intracranial signal abnormality. DWI demonstrates no evidence of acute infarct. Gradient echo images demonstrate no evidence of hemorrhage. There are no abnormal flow voids. Cerebral ventricles: There is no hydrocephalus. Bones/joints: Unremarkable. Paranasal sinuses: There is complete opacification of the left maxillary sinus. Mastoid air cells: Normal as visualized. No mastoid effusion. Orbital cavities: Unremarkable. Soft tissues: Unremarkable. MR/MR head wo con* [id number] IMPRESSION: No intracranial lesion or injury and no change from prior scan.
[2023-02-12 17:58] LABS: Basophils # 0.1 10^3/uL (0.0-0.1); Basophils % 0.8 %; Eosinophils # 0.2 10^3/uL (0.0-0.8); Eosinophils % 2.2 %; Hematocrit 43.9 % (37-53); Lymphocytes % 25.9 %; Mean Corpuscular HGB Conc 33.5 g/dL (30-55); Mean Corpuscular Hemoglobin 30.7 pg (27-33); Mean Corpuscular Volume 91.6 fl (82-101); Mean Platelet Volume 9.9 fL (7.4-10.4); Monocytes # 0.6 10^3/uL (0.2-0.9); Monocytes % 7.6 %; Neutrophils # 4.87 10^3/uL (1.8-7.7); Nucleated Red Blood Cells % 0 %; Platelet Count 239 10^3/cmm (157-399); Red Blood Count 4.79 10^6/uL (3.85-5.65); Red Cell Distribution Width 13.3 % (12.1-15.1); White Blood Count 7.73 10^3/uL (3.29-11.43)
[2023-02-12 18:09] LABS: Partial Thromboplastin Time 22.1 SECONDS (23.9-36.7)
--- NOTE | 2023-02-12 19:05 | W.ED.NEUROSD ---
HPI - Neuro Symptoms/Deficit General: Chief Complaint: Neuro Symptoms/Deficit Stated Complaint: RIGHT FACIAL DROOP Time Seen by Provider: 02/12/23 17:33 History of Present Illness: 62-year-old male presents to the emergency department by helicopter. The EMS report was onset of right facial droop and left arm symptoms at 1430 today. However, I have spoken with the patient extensively and he tells me that he noticed tingling down the left side of his body including his left shoulder, arm, side, left lower extremity starting yesterday. 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 He denies any speech problems, trouble with gait, confusion. After establishing some rapport with the patient and observing him carefully, it appears that the facial droop may be volitional. Therefore I explored a few other symptoms. He reports he has not been sleeping well and has been under a lot of stress. He is trying to collect some money from his former workplace. He reports a previous stroke.The MRI report from November 2021, it does not show any signs of CVA. Patient reportedly had a possible subtle facial droop at that time as well. Unclear if there is been any documented stroke since that time. Associated symptoms: Reports chest pain (Sometimes I get chest pains); Deny headache(s), nausea, syncope or vomiting Review of Systems General: Reports: 10 or more systems reviewed and unremarkable except in HPI and below Const: Reports: fatigue and change in sleep pattern; Denies: fever(s), chills, body aches, change in appetite or night sweats Eyes: Denies: change in vision ENMT: Denies: throat pain Card: Reports: chest pain (Sometimes I get chest pains); Denies: edema or syncope Resp: Denies: dyspnea or productive cough GI: Denies: abdominal pain, nausea, vomiting or diarrhea : Denies: flank pain, dysuria or urinary frequency Musc: Denies: neck pain, back pain, extremity pain or extremity swelling Skin/Breast: Denies: rash or erythema Neuro: Denies: headache(s), lack of coordination or difficulty walking Psych: Reports: sleeping less and other (Stress) [facility] ED PFSH: Medical History Chronic headaches CVA (cerebrovascular accident) CVA 03/2022 with SBO following Falls Hematochezia Pulmonary emboli Vertigo Vertigo Surgical History H/O circumcision H/O esophagogastroduodenoscopy (01/08/20) esophagitis, gastritis, duodenitis History of throat surgery S/P IVC filter S/p small bowel obstruction CVA with SBO surgery 03/2022 Status post colonoscopy with polypectomy (01/08/20) sigmoid polyp Status post hip surgery Status post right inguinal hernia repair Family History Denies family history of Diabetes CAD (coronary artery disease) Anesthesia complication Bleeding disorder Cancer Social History Smoking and tobacco status: current every day smoker Alcohol intake: never Substance/Drug Use: never Household members: significant other Marital status: Single Current occupational status: employed NIH stroke score NIHSS: Level Of Consciousness - 1a: 0 Level Of Consciousness Questions - 1b: One Correct Level Of Consciousness Commands - 1c: Both Correct Best Gaze - 2: Normal Visual Pedraza - 3: No Visual Loss Facial Palsy - 4: Normal (See exam for more details) Motor Arm Right - 5: No Drift Motor Arm Left - 5: No Drift Motor Leg Right - 6: No Drift Motor Leg Left - 6: No Drift Limb Ataxia - 7: Absent Sensory - 8: Mild To Moderate Loss (Left lower extremity he says he can feel slightly less on the left than the right during simultaneous touch) Best Language - 9: No Aphasia Dysarthia - 10: Normal Extinction And Inattention - 11: 0 Score: Total Score: 2 Physical Exam Const: COMMON NORMALS: no limitations, alert and well nourished EXAM LIMITATIONS: no altered mental status HENMT: COMMON NORMALS: normocephalic, atraumatic and external ears normal HEAD & SCALP: normocephalic and atraumatic EXTERNAL EAR: Yes external ears normal Eye: COMMON NORMALS: EOMs intact bilaterally, conjunctivae normal and no scleral icterus CONJUNCTIVA: Yes conjunctivae normal Neck/C-Spine: COMMON NORMALS: no JVD GENERAL: Yes normal visual inspection and Yes trachea midline Resp: COMMON NORMALS: normal respiratory effort, No use of accessory muscles and clear to auscultation bilaterally AUSCULTATION: clear to auscultation bilaterally Cardio: COMMON NORMALS: no JVD, regular rate and regular rhythm RATE: regular rate RHYTHM: regular rhythm GI: COMMON NORMALS: Soft to palpation and non-tender PALPATION: Yes Soft to palpation and No Guarding due to palpation present (GI) Extremity: COMMON NORMALS: normal to inspection Neuro: COMMON NORMALS: moves all extremities and no focal motor deficits SENSORIUM/ORIENTATION: Yes alert OTHER: Patient is able to retract his lips to show me his teeth. He is also able to stick his tongue out midline and his face becomes symmetric at that time. During certain responses his face equalizes. Other times he appears to be talking out of the right side of his mouth giving the impression of a facial droop. My impression was that this was a volitional response. No nasolabial flattening, no involvement of the periorbital muscles. Extraocular movements normal. 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 No drift. When touching both legs, patient endorsed that the left was not as sensitive as the right. Psych: COMMON NORMALS: mental status grossly normal, Normal thought process present, cooperative, normal affect and speech normal SPEECH: Yes normal speech THOUGHT PROCESS: Normal thought process present OTHER: Stressed/anxious affect Skin: COMMON NORMALS: no rashes or lesions noted, turgor normal and no jaundice GENERAL SKIN EXAM: no rashes or lesions noted and turgor normal Course Vital Signs: Vital signs: Vital Signs Temperature 98.2 F 02/12/23 17:41 Pulse Rate 96 02/12/23 17:41 Respiratory Rate 18 02/12/23 17:41 Blood Pressure 134/91 02/12/23 17:41 Pulse Oximetry 93 02/12/23 17:41 Oxygen Delivery Me thod Room Air 02/12/23 17:41 MDM - Neuro Symptoms/Deficit Medical Decision Making Patient brought in for possible neurologic deficits. They actually started yesterday according to the patient. This automatically excludes him from tPA. Furthermore, his NIH is less than 3 which is a relative contraindication for tPA. Furthermore, the patient's facial droop appears to be volitional and fluctuating. We immediately took over for a CT scan of the head as a precaution. This was negative. The patient's blood pressure is normal and this also makes it less likely to be an acute CVA. I spoke with the manager of radiology who is able to perform an MRI so we can definitively exclude any acute infarction. EKG my interpretation from 1804 shows a sinus rhythm, rate 91, normal axis, QRS duration 94 ms, no concerning ST segment elevations or depressions. UPDATE: MRI Brain No signs of stroke or any acute findings to explain the patient's symptoms. MRI was negative which supports the pretest suspicion. Labs reviewed. BUN to creatinine ratio is slightly elevated but GFR is completely normal. No other concerning findings. Vitals reassuring. Chest x-ray negative. Suspect this is stress related There is the possibility of malingering however as stress related somatoform disorder is probably more likely. Regardless, patient has been screened and no emergency medical condition is found at this time. Patient may be discharged. Lab Data 02/12/23 17:45 02/12/23 19:[address] 02/12/23 17:37 IMPRESSION: No intracranial lesion or injury and no change from prior CT. ASSESSMENT: ASPECTS ([place] Stroke Program Early CT Score) is 10. Chest X-Ray 02/12/23 17:42 IMPRESSION: No acute findings. Head MRI 02/12/23 17:53 IMPRESSION: No intracranial lesion or injury and no change from prior scan. Laboratory Results WBC 7.73 10^3/uL (3.29-11.43) 02/12/23 17:45 RBC 4.79 10^6/uL (3.85-5.65) 02/12/23 17:45 Hgb 14.70 g/dL (11.27-16.99) 02/12/23 17:45 Hct 43.9 % (37-53) 02/12/23 17:45 MCV 91.6 fl (82-101) 02/12/23 17:45 MCH 30.7 pg (27-33) 02/12/23 17:45 MCHC 33.5 g/dL (30-55) 02/12/23 17:45 RDW 13.3 % (12.1-15.1) 02/12/23 17:45 Plt Count 239 10^3/cmm (157-399) 02/12/23 17:45 MPV 9.9 fL (7.4-10.4) 02/12/23 17:45 Neut % (Auto) 63.0 % 02/12/23 17:45 Lymph % (Auto) 25.9 % 02/12/23 17:45 Dubois % (Auto) 7.6 % 02/12/23 17:45 Eos % (Auto) 2.2 % 02/12/23 17:45 Baso % (Auto) 0.8 % 02/12/23 17:45 Neut # (Auto) 4.87 10^3/uL (1.8-7.7) 02/12/23 17:45 Lymph # (Auto) 2.0 10^3/uL (0.8-4.8) 02/12/23 17:45 Dubois # (Auto) 0.6 10^3/uL (0.2-0.9) 02/12/23 17:45 Eos # (Auto) 0.2 10^3/uL (0.0-0.8) 02/12/23 17:45 Baso # (Auto) 0.1 10^3/uL (0.0-0.1) 02/12/23 17:45 Nucleated RBC % (auto) 0 % 02/12/23 17:45 Nucleated RBCs # 0.0 /100WBC 02/12/23 17:45 PT 12.40 SECONDS (12.1-14.9) 02/12/23 17:45 INR 0.90 (0.8-1.2) 02/12/23 17:45 APTT 22.1 SECONDS (23.9-36.7) L 02/12/23 17:45 Sodium 139 mmol/L (136-145) 02/12/23 19:07 Potassium 4.1 mmol/L (3.5-5.1) 02/12/23 19:07 Chloride 107 mmol/L (98-107) 02/12/23 19:07 Carbon Dioxide 23 mmol/L (22-29) 02/12/23 19:07 Anion Gap 13.1 (5-19) 02/12/23 19:07 BUN 26 mg/dL (8-23) H 02/12/23 19:07 Creatinine 0.9 mg/dL (0.7-1.2) 02/12/23 19:07 GFR Calculation 85.5 mL/min (90-130) L 02/12/23 19:07 Glucose 117 mg/dL (65-115) H 02/12/23 19:07 POC Glucose 110 mg/dL (70-110) 02/12/23 17:35 Calculated Osmolality 294 mOsm/kg (285-295) 02/12/23 19:07 Calcium 8.7 mg/dL (8.5-10.5) 02/12/23 19:07 Magnesium 2.3 mg/dL (1.7-2.3) 02/12/23 19:07 Total Bilirubin 0.2 mg/dL (0.15-1.2) 02/12/23 19:07 AST 17 U/L (0-40) 02/12/23 19:07 ALT 29 U/L (0-41) 02/12/23 19:07 Alkaline Phosphatase 77 U/L (40-130) 02/12/23 19:07 Total Protein 6.5 g/dL (6.6-8.7) L 02/12/23 19:07 Albumin 3.8 g/dL (3.5-5.2) 02/12/23 19:07 Globulin 2.7 g/dL (1.3-4.6) 02/12/23 19:07 Discharge Plan Discharge Patient Disposition: Home Clinical Impression: Tingling, Insomnia, Stress, Encounter for medical screening examination Condition: Stable Prescriptions: No Action atorvastatin [Lipitor] 10 mg tablet 10 mg PO DAILY Qty: 30 5RF omeprazole 20 mg capsule,delayed release(DR/EC) 20 mg PO DAILY PRN (Reason: Acid Reflux) Qty: 30 5RF aspirin 81 mg tablet,delayed release (DR/EC) 81 mg PO DAILY Discharge Orders: Discharge ED (Routine); Ordered 02/12/23 Ordered By: Liam Singer Referrals: Art Cheng MD [Primary Care Provider] - 7-10 days Discharge Diet: Usual diet Discharge Activity: Resume usual activity Patient Instructions: Opioid Safety, Pain Management Activity Restrictions/Additional Instructions: You did not have any signs of stroke. We suspect that stress is contributing to your symptoms. The MRI of your brain is normal. You do have chronic sinusitis. This would not of been the cause of your symptoms. There were no signs of any heart attack or abnormal rhythm on your EKG. Your labs and vital signs were reassuring. Please read all discharge instructions and abide by recommendations and return precautions. Make an appointment to follow-up with your primary care doctor as directed for follow-up. Return to ER if getting worse or other emergent symptoms. Coding Level of Care Code ED N[employer] for Lius Tate
[2023-02-12 19:28] LABS: Alanine Aminotransferase 29 U/L (0-41); Albumin Level 3.8 g/dL (3.5-5.2); Alkaline Phosphatase 77 U/L (40-130); Anion Gap 13.1 (5-19); Aspartate Amino Transferase 17 U/L (0-40); Blood Urea Nitrogen 26 mg/dL (8-23); Calcium 8.7 mg/dL (8.5-10.5); Carbon Dioxide 23 mmol/L (22-29); Chloride 107 mmol/L (98-107); Creatinine Clr Calc Pharmacy 107.1956; Globulin 2.7 g/dL (1.3-4.6); Glomerular Filtration Rate 85.5 mL/min (90-130); Glucose 117 mg/dL (65-115); Magnesium 2.3 mg/dL (1.7-2.3); Osmolality Calculated 294 mOsm/kg (285-295); Potassium 4.1 mmol/L (3.5-5.1); Sodium 139 mmol/L (136-145); Total Bilirubin 0.2 mg/dL (0.15-1.2); Total Protein 6.5 g/dL (6.6-8.7)
[2023-02-12 20:32] VITALS: BP 111/74; PULSE 72; RESP 22; O2SAT 94
== END 2023-02-12 20:15 | disposition home or self-care (01) ==
PROVIDERS: Emergency Provider Emergency Medicine; PCP Family Medicine Adult Medicine
DX: R20.2 Paresthesia of skin (principal); G47.00 Insomnia, unspecified; F43.9 Reaction to severe stress, unspecified; Z79.82 Long term (current) use of aspirin; Z86.73 Personal history of transient ischemic attack (TIA), and cerebral infarction without residual deficits; F17.210 Nicotine dependence, cigarettes, uncomplicated
CPT/HCPCS: 36416; 70450; 70551; 71045; 80053; 82962; 83735; 85025; 85610; 85730; 93005; 99285

== ENCOUNTER 2023-09-07 19:06 | Emergency (ER) | payer BC, MEDICAID, SELFPAY ==
[2023-09-07 19:08] VITALS: BP 143/83; PULSE 81; RESP 18; TEMP 36.8; O2SAT 98; BMI 29.5
--- NOTE | 2023-09-07 19:19 | XRR_ITS ---
PROCEDURE INFORMATION: Exam: XR Abdomen Exam date and time: 09/07/2023 7:38 PM Age: 63 years old Clinical indication: Abdominal pain; Additional info: Abd pain , HX of bowel blockage requiring surgery TECHNIQUE: Imaging protocol: Radiologic exam of the abdomen. Views: Frontal supine view of the abdomen. 1 View. COMPARISON: CT abdomen pelvis w con* [id number] 12/27/2019 11:55 AM FINDINGS: Gastrointestinal tract: Prominent segments of gas-filled small bowel in the left abdomen measuring up to 3.5 cm. Gas within the colon and rectum. No definitive evidence of large or small bowel obstruction. Vasculature: Inferior vena caval filter noted. Bones/joints: Unremarkable. XR/XR abdomen 1V* [id number] IMPRESSION: Prominent segments of gas-filled small bowel in the left abdomen measuring up to 3.5 cm. No definitive obstruction. Follow-up as indicated. COMMENTS: For patients with an IVC filter, recommend assessment for a management plan for the patient's IVC filter. If there is no established management plan, recommend referral to an interventional clinician on a nonemergent basis for evaluation.
--- NOTE | 2023-09-07 19:22 | XRR_ITS ---
PROCEDURE INFORMATION: Exam: XR Chest Exam date and time: 09/07/2023 7:38 PM Age: 63 years old Clinical indication: Cough TECHNIQUE: Imaging protocol: Radiologic exam of the chest. Views: 1 view. COMPARISON: CR XR chest 1V portable [id number] 02/12/2023 5:54 PM FINDINGS: Lungs: Unremarkable. No consolidation. Pleural spaces: Unremarkable. No pleural effusion. No pneumothorax. Heart/Mediastinum: Unremarkable. No cardiomegaly. Bones/joints: Unremarkable. XR/XR chest 1V portable [id number] IMPRESSION: No acute findings.
--- NOTE | 2023-09-07 19:22 | CTR_ITS ---
PROCEDURE INFORMATION: Exam: CT Abdomen And Pelvis With Contrast Exam date and time: 09/07/2023 8:18 PM Age: 63 years old Clinical indication: Abdominal pain; Periumbilical; Prior surgery; Surgery date: 6+ months; Surgery type: Hernia repair, sbo; Additional info: Abd pain TECHNIQUE: Imaging protocol: Computed tomography of the abdomen and pelvis with contrast. Radiation optimization: All CT scans at this facility use at least one of these dose optimization techniques: automated exposure control; mA and/or kV adjustment per patient size (includes targeted exams where dose is matched to clinical indication); or iterative reconstruction. Contrast material: OMNI 350; Contrast volume: 100 ml; Contrast route: INTRAVENOUS (IV); COMPARISON: CT abdomen pelvis w con* [id number] 12/27/2019 11:55 AM RADIATION DOSE METRICS: Total DLP (mGy-cm): 948.13 FINDINGS: Lungs: Mild bilateral posterior atelectasis and/or scarring. Heart: Heart size is within normal limits. There is no pericardial effusion or pericardial thickening. Liver: The liver is normal. No hepatic masses are identified. Gallbladder and bile ducts: The gallbladder is normal. There is no ductal dilatation. Pancreas: The pancreas is normal. Spleen: The spleen is normal. Adrenal glands: The adrenal glands are normal. Kidneys and ureters: There is normal enhancement of the kidneys. No renal calcifications are identified. There is no hydronephrosis. There are bilateral subcentimeter renal low-density lesions which are too small for accurate characterization, likely representing simple cysts. Stomach and bowel: Two segments of prominent small bowel in the left upper quadrant. No evidence of obstruction. No bowel wall thickening. Mild lipomatosis in the wall of the terminal ileum can be physiologic or may be sequela of prior inflammatory change. Appendix: A normal appendix is not identified. There is no secondary evidence of acute appendicitis. Intraperitoneal space: No inflammatory changes are identified. There is no free fluid or fluid collection seen. There is no pneumoperitoneum. Vasculature: Atherosclerotic calcifications of the aorta are present. No aneurysm is identified. Inferior vena caval filter is in place. Lymph nodes: There are no enlarged retroperitoneal or mesenteric lymph nodes. Urinary bladder: The bladder is unremarkable. Reproductive: The prostate is grossly unremarkable. Bones/joints: No acute osseous abnormalities are seen. Status post pinning of the left femoral neck. Soft tissues: There is a small left inguinal hernia containing only fat. The soft tissues are otherwise within normal limits. Other findings: . CT/CT abdomen pelvis w con* [id number] IMPRESSION: 1. No definitive acute intra-abdominal or pelvic process. 2. Short segments of prominent small bowel in the left upper quadrant without obstruction. Likely physiologic though focal enteritis could have this appearance. 3. Other nonemergent findings above. COMMENTS: 1. For patients with an IVC filter, recommend assessment for a management plan for the patient's IVC filter. If there is no established management plan, recommend referral to an interventional clinician on a nonemergent basis for evaluation. 2. Consistent with the [employer]'s Incidental Findings Committee white paper (J Am Flip Radiol 2018): Any incidental renal lesion less than 1 cm or classified as too small to characterize, or any incidental cystic renal lesion characterized as simple-appearing, is likely benign. No follow-up imaging is recommended for these lesions per consensus recommendations based on imaging criteria.
--- NOTE | 2023-09-07 19:24 | ED_ITS ---
HPI - Abdominal Pain 2 General: Chief Complaint: Abdominal Pain Stated Complaint: Abd Pain Time Seen by Provider: 09/07/23 19:19 Source: patient and EMS Mode of arrival: EMS Limitations: no limitations History of Present Illness: 63-year-old male states he has been havi ng abdominal pain has been ongoing for 2 to 3 months he states its worsened over the last 3 days. Has had a history of small bowel obstructions he also had a hernia repair he states a year ago he states that he had a slight cough for the last 3 days and he states when he coughs he feels like he has had an area bulge out where his hernia was and having pain. States wrist currently is having no pain but is worse with movement Associated Symptoms: Denies chills, diarrhea, dysuria, fever(s), nausea and vomiting Review of Systems 2 Const: Denies: fever(s), chills, body aches or change in appetite ENMT: Denies: throat pain or dental pain Card: Denies: chest pain Resp: Reports: non-productive cough; Denies: dyspnea GI: Reports: abdominal pain; Denies: nausea, vomiting or diarrhea : Denies: dysuria Musc: Denies: neck pain or back pain Skin/Breast: Denies: rash PFSH ED 2 PFSH: Medical History CVA (cerebrovascular accident) CVA 03/2022 with SBO following [place] Chronic headaches Vertigo Vertigo Pulmonary emboli Surgical History S/p small bowel obstruction CVA with SBO surgery 03/2022 Status post colonoscopy with polypectomy (01/08/20) sigmoid polyp H/O esophagogastroduodenoscopy (01/08/20) esophagitis, gastritis, duodenitis Status post right inguinal hernia repair History of throat surgery H/O circumcision Status post hip surgery S/P IVC filter Family History Denies family history of Diabetes CAD (coronary artery disease) Anesthesia complication Bleeding disorder Cancer Social History Smoking and tobacco/nicotine status: current every day tobacco/nicotine user Alcohol intake: never Substance/Drug Use: never Household members: significant other Marital status: Single Current occupational status: employed Physical Exam 2 Const: COMMON NORMALS: no acute distress, patient oriented x3 and healthy appearing HENMT: COMMON NORMALS: normocephalic and atraumatic HEAD & SCALP: n ormocephalic and atraumatic Neck/C-Spine: COMMON NORMALS: full ROM and supple Chest: COMMONS NORMALS: normal inspection of the chest and normal palpation of entire chest wall Resp: COMMON NORMALS: normal respiratory effort, No retractions, No use of accessory muscles and clear to auscultation bilaterally AUSCULTATION: clear to auscultation bilaterally Cardio: COMMON NORMALS: regular rate, regular rhythm and No murmurs present (Cardio) RATE: regular rate RHYTHM: regular rhythm GI: COMMON NORMALS: Normal to inspection, nondistended, normoactive bowel sounds present and Soft to palpation PALPATION: Yes Soft to palpation O THER: Mid abdomen scar slight hernias palpated no incarceration of bowel minimal tenderness Extremity: COMMON NORMALS: normal to inspection and full ROM Neuro: COMMON NORMALS: patient oriented x3, moves all extremities and no focal motor deficits Psych: COMMON NORMALS: mental status grossly normal, Normal thought process present and cooperative THOUGHT PROCESS: Normal thought process present Skin: COMMON NORMALS: no rashes or lesions noted and no wounds GENERAL SKIN EXAM: no rashes or lesions noted Course 2 Vital Signs: Vital signs: Vital Signs Temperature 98.2 F 09/07/23 19:08 Pulse Rate 81 09/07/23 19:08 Respiratory Rate 18 09/07/23 19:37 Blood Pressure 143/83 09/07/23 19:08 Pulse Oximetry 98 09/07/23 19:37 Oxygen Delivery Me thod Room Air 09/07/23 19:08 MDM - Abdominal Pain Medical Decision Making Patient presents here with abdominal pain likely from his previous hernia his abdominal exam here is benign with no incarcerated hernia noted CT scan blood works normal we will get him surgery follow-up prescribe pain meds he is return if worsening he understands agrees to plan. Medical Records I reviewed the patient's medical records. Lab Data I reviewed the patient's lab results. 09/07/23 19:32 09/07/23 19:32 Labs/Radiology: Radiology Impressions Abdomen X-Ray 09/07/23 19:19 IMPRESSION: Prominent segments of gas-filled small bowel in the left abdomen measuring up to 3.5 cm. No definitive obstruction. Follow-up as indicated. COMMENTS: For patients with an IVC filter, recommend assessment for a management plan for the patient's IVC filter. If there is no established management plan, recommend referral to an interventional clinician on a nonemergent basis for evaluation. Abdomen/Pelvis CT 09/07/23 19:22 IMPRESSION: 1. No definitive acute intra-abdominal or pelvic process. 2. Short segments of prominent small bowel in the left upper quadrant without obstruction. Likely physiologic though focal enteritis could have this appearance. 3. Other nonemergent findings above. COMMENTS: 1. For patients with an IVC filter, recommend assessment for a management plan for the patient's IVC filter. If there is no established management plan, recommend referral to an interventional clinician on a nonemergent basis for evaluation. 2. Consistent with the [employer]'s Incidental Findings Committee white paper (J Am Flip Radiol 2018): Any incidental renal lesion less than 1 cm or classified as too small to characterize, or any incidental cystic renal lesion characterized as simple-appearing, is likely benign. No follow-up imaging is recommended for these lesions per consensus recommendations based on imaging criteria. Chest X-Ray 09/07/23 19:22 IMPRESSION: No acute findings. Laboratory Results WBC 4.29 10^3/uL (3.29-11.43) 09/07/23 19:32 RBC 5.14 10^6/uL (3.85-5.65) 09/07/23 19:32 Hgb 15.60 g/dL (11.27-16.99) 09/07/23 19:32 Hct 47.4 % (37-53) 09/07/23 19:32 MCV 92.2 fl (82-101) 09/07/23 19:32 MCH 30.4 pg (27-33) 09/07/23 19:32 MCHC 32.9 g/dL (30-55) 09/07/23 19:32 RDW 12.9 % (12.1-15.1) 09/07/23 19:32 Plt Count 208 10^3/cmm (157-399) 09/07/23 19:32 MPV 10.0 fL (7.4-10.4) 09/07/23 19:32 Neut % (Auto) 54.6 % 09/07/23 19:32 Lymph % (Auto) 27.0 % 09/07/23 19:32 [place] % (Auto) 14.9 % 09/07/23 19:32 Eos % (Auto) 2.1 % 09/07/23 19:32 Baso % (Auto) 0.9 % 09/07/23 19:32 Neut # (Auto) 2.34 10^3/uL (1.8-7.7) 09/07/23 19:32 Lymph # (Auto) 1.2 10^3/uL (0.8-4.8) 09/07/23 19:32 [place]ck[place] # (Auto) 0.6 10^3/uL (0.2-0.9) 09/07/23 19:32 Eos # (Auto) 0.1 10^3/uL (0.0-0.8) 09/07/23 19:32 Baso # (Auto) 0.0 10^3/uL (0.0-0.1) 09/07/23 19:32 Nucleated RBC % (auto) 0 % 09/07/23 19: Nucleated RBCs # 0.0 /100WBC 09/07/23 19:32 Sodium 139 mmol/L (136-145) 09/07/23 19:32 Potassium 4.6 mmol/L (3.5-5.1) 09/07/23 19:32 Chloride 103 mmol/L (98-107) 09/07/23 19:32 Carbon Dioxide 26 mmol/L (22-29) 09/07/23 19:32 Anion Gap 14.6 (5-19) 09/07/23 19:32 BUN 10 mg/dL (8-23) 09/07/23 19:32 Creatinine 1.0 mg/dL (0.7-1.2) 09/07/23 19:32 GFR Calculation 75.5 mL/min (90-130) L 09/07/23 19:32 Glucose 96 mg/dL (65-115) 09/07/23 19:32 Calculated Osmolality 287 mOsm/kg (285-295) 09/07/23 19:32 Calcium 9.2 mg/dL (8.5-10.5) 09/07/23 19:32 Total Bilirubin 0.4 mg/dL (0.15-1.2) 09/07/23 19:32 AST 15 U/L (0-40) 09/07/23 19:32 ALT 22 U/L (0-41) 09/07/23 19:32 Alkaline Phosphatase 99 U/L (40-130) 09/07/23 19:32 Total Protein 7.2 g/dL (6.6-8.7) 09/07/23 19:32 Albumin 4.0 g/dL (3.5-5.2) 09/07/23 19:32 Globulin 3.2 g/dL (1.3-4.6) 09/07/23 19:32 Lipase 30 U/L (13-60) 09/07/23 19:32 Urine Color Yellow (Yellow) 09/07/23 19:33 Urine Appearance Clear (CLEAR) 09/07/23 19:33 Urine pH 5 (5-7) 09/07/23 19:33 Ur Specific [place] 1.020 (1.005-1.030) 09/07/23 19:33 Urine Protein Neg (Negative) 09/07/23 19:33 Urine Glucose (UA) Norm (Normal) 09/07/23 19:33 Urine Ketones Negative (Negative) 09/07/23 19:33 Urine Blood Neg (Negative) 09/07/23 19:33 Urine Nitrate Negative (Negative) 09/07/23 19:33 Urine Bilirubin Neg (Negative) 09/07/23 19:33 Urine Urobilinogen Norm mg/dL (Negative) 09/07/23 19:33 Ur Leukocyte Esterase Negative (Negative) 09/07/23 19:33 All radiology interpretation(s) finalized by discharge Discharge Plan Discharge Patient Disposition: Home Clinical Impression: Abdominal pain Condition: Stable Prescriptions: New hydrocodone-acetaminophen 5-325 mg tablet 1 tab PO Q6H PRN (Reason: pain) Qty: 14 0RF ondansetron 4 mg tablet,disintegrating 4 mg PO Q6H PRN (Reason: nausea and vomiting) Qty: 14 0RF No Action atorvastatin [Lipitor] 10 mg tablet 10 mg PO DAILY Qty: 30 5RF omeprazole 20 mg capsule,delayed release(DR/EC) 20 mg PO DAILY PRN (Reason: Acid Reflux) Qty: 30 5RF aspirin 81 mg tablet,delayed release (DR/EC) 81 mg PO DAILY Discharge Orders: Discharge ED (Routine); Ordered 09/07/23 Ordered By: Nohelia Lala Referrals: Chung Lynn DO [Physician] - 1-3 days Art Cheng MD [Primary Care Provider] - 1-3 days Discharge Diet: Advance as tolerated Discharge Activity: Resume usual activity Patient Instructions: Abdominal Pain (ED) Coding Level of Care Code ED Communication Equipment Repairer for Luis Tate
[2023-09-07 19:37] VITALS: RESP 18; O2SAT 98
[2023-09-07] MEDS: morphine 4 mg/mL SDV 1 mL IVP (19:37)
[2023-09-07] MEDS: ondansetron 2 mg/ML SDV 2 mL 4 MG IVP (19:37)
[2023-09-07 19:41] LABS: Add Urine Microscopic? NO; Charge for UA Resulting for Rev
[2023-09-07 20:06] LABS: Alanine Aminotransferase 22 U/L (0-41); Alkaline Phosphatase 99 U/L (40-130); Anion Gap 14.6 (5-19); Aspartate Amino Transferase 15 U/L (0-40); Blood Urea Nitrogen 10 mg/dL (8-23); Calcium 9.2 mg/dL (8.5-10.5); Carbon Dioxide 26 mmol/L (22-29); Chloride 103 mmol/L (98-107); Creatinine Clr Calc Pharmacy 97.3733; Globulin 3.2 g/dL (1.3-4.6); Glomerular Filtration Rate 75.5 mL/min (90-130); Glucose 96 mg/dL (65-115); Lipase 30 U/L (13-60); Osmolality Calculated 287 mOsm/kg (285-295); Potassium 4.6 mmol/L (3.5-5.1); Sodium 139 mmol/L (136-145); Total Bilirubin 0.4 mg/dL (0.15-1.2); Total Protein 7.2 g/dL (6.6-8.7)
[2023-09-07 20:08] LABS: Basophils % 0.9 %; Eosinophils # 0.1 10^3/uL (0.0-0.8); Eosinophils % 2.1 %; Hematocrit 47.4 % (37-53); Lymphocytes # 1.2 10^3/uL (0.8-4.8); Mean Corpuscular HGB Conc 32.9 g/dL (30-55); Mean Corpuscular Hemoglobin 30.4 pg (27-33); Mean Corpuscular Volume 92.2 fl (82-101); Monocytes # 0.6 10^3/uL (0.2-0.9); Monocytes % 14.9 %; Neutrophils # 2.34 10^3/uL (1.8-7.7); Neutrophils % 54.6 %; Nucleated Red Blood Cells % 0 %; Platelet Count 208 10^3/cmm (157-399); Red Blood Count 5.14 10^6/uL (3.85-5.65); Red Cell Distribution Width 12.9 % (12.1-15.1); White Blood Count 4.29 10^3/uL (3.29-11.43)
[2023-09-07] MEDS: iohexol 350 mg/mL 500 mL Btl (per mL) IV (20:18)
[2023-09-07 20:21] LABS: Bilirubin Urine Neg (Negative); Blood Urine Neg (Negative); Glucose Urine UA Norm (Normal); Ketones Urine Negative (Negative); Leukocyte Esterase Urine Negative (Negative); Nitrate Urine Negative (Negative); Protein Urine Neg (Negative); Urine Appearance Clear (CLEAR); Urine Color Yellow (Yellow); Urobilinogen Urine Norm (Negative); pH Urine 5 (5-7)
[2023-09-07 21:19] VITALS: BP 117/71; PULSE 88; RESP 16; O2SAT 96
[2023-09-07 21:20] VITALS: BP 117/71; PULSE 88; RESP 16; O2SAT 96
--- NOTE | 2023-09-08 07:29 | DCPLANNER ---
A message was sent to general surgery on 09/08/23 at 0729. [facility] to contact patient for appt
== END 2023-09-07 21:22 | disposition home or self-care (01) ==
PROVIDERS: Emergency Medicine; Emergency Provider Emergency Medicine; PCP Family Medicine Adult Medicine
DX: R10.9 Unspecified abdominal pain (principal); Z79.82 Long term (current) use of aspirin; Z86.73 Personal history of transient ischemic attack (TIA), and cerebral infarction without residual deficits; Z72.0 Tobacco use
CPT/HCPCS: 71045; 74018; 74177; 80053; 81003; 83690; 85025; 96374; 96375; 99285; J2270; J2405; Q9967

== ENCOUNTER 2024-03-22 13:28 | Emergency (ER) | payer SELFPAY ==
[2024-03-22 15:00] VITALS: BP 109/81; PULSE 122; RESP 16; TEMP 36.3; O2SAT 96; BMI 31.8
[2024-03-22 15:19] LABS: Basophils % 0.5 %; Eosinophils % 0.4 %; Hematocrit 55.3 % (37-53); Lymphocytes # 1.4 10^3/uL (0.8-4.8); Lymphocytes % 16.3 %; Mean Corpuscular HGB Conc 33.5 g/dL (30-55); Mean Corpuscular Hemoglobin 30.6 pg (27-33); Mean Corpuscular Volume 91.6 fl (82-101); Mean Platelet Volume 10.3 fL (7.4-10.4); Monocytes # 0.8 10^3/uL (0.2-0.9); Monocytes % 10.1 %; Neutrophils # 5.99 10^3/uL (1.8-7.7); Neutrophils % 72.3 %; Nucleated Red Blood Cells % 0 %; Platelet Count 357 10^3/cmm (157-399); Red Blood Count 6.04 10^6/uL (3.85-5.65); Red Cell Distribution Width 12.6 % (12.1-15.1); White Blood Count 8.28 10^3/uL (3.29-11.43)
[2024-03-22 15:42] LABS: Alanine Aminotransferase 24 U/L (0-41); Albumin Level 4.4 g/dL (3.5-5.2); Alkaline Phosphatase 130 U/L (40-130); Anion Gap 18.2 (5-19); Aspartate Amino Transferase 13 U/L (0-40); Blood Urea Nitrogen 25 mg/dL (8-23); Calcium 9.4 mg/dL (8.5-10.5); Carbon Dioxide 25 mmol/L (22-29); Chloride 96 mmol/L (98-107); Creatinine Clr Calc Pharmacy 62.7687; Globulin 3.9 g/dL (1.3-4.6); Glomerular Filtration Rate 47.1 mL/min (90-130); Glucose 128 mg/dL (65-115); Lipase 21 U/L (13-60); Osmolality Calculated 286 mOsm/kg (285-295); Potassium 4.2 mmol/L (3.5-5.1); Sodium 135 mmol/L (136-145); Total Bilirubin 0.9 mg/dL (0.15-1.2); Total Protein 8.3 g/dL (6.6-8.7)
--- NOTE | 2024-03-22 18:57 | CTR_ITS ---
PROCEDURE INFORMATION: Exam: CT Abdomen And Pelvis With Contrast Exam date and time: 03/22/2024 7:30 PM Age: 64 years old Clinical indication: S/P hernia repair. Abdominal pain TECHNIQUE: Imaging protocol: Computed tomography of the abdomen and pelvis with contrast. Total images: 245 submitted. Radiation optimization: All CT scans at this facility use at least one of these dose optimization techniques: automated exposure control; mA and/or kV adjustment per patient size (includes targeted exams where dose is matched to clinical indication); or iterative reconstruction. Contrast material: [id number]; Contrast volume: 100 ml; Contrast route: INTRAVENOUS (IV); COMPARISON: 1. CT abdomen pelvis w con* [id number] 09/07/2023 8:[address] abdomen pelvis w con* [id number] 12/27/2019 11:[address] abdomen pelvis wo con [id number] 10/31/2019 8:11 PM 4. Chest CTA 07/19/17 RADIATION DOSE METRICS: Total DLP (mGy-cm): 814 FINDINGS: Lungs: Mild, linear opacities at dependent portion of right lower lobe likely represent subsegmental atelectasis. Pleural spaces: No pleural effusions. Heart: Visualized heart is normal in size. Liver: Density is diffusely low, suggesting fatty liver. Gallbladder and biliary ducts: Grossly normal. No calcified stones. No intra or extrahepatic duct dilation. Pancreas: Normal. No pancreatic duct dilation. Spleen: Normal. No splenomegaly. Adrenal glands: Normal. No mass. Kidneys and ureters: 1 x 1.1 cm, slightly lobulated, low attenuation lesion with a few, thin and mildly thick, internal septations at medial aspect of lower pole of left kidney appears stable from 10/31/19. A few, < 7 mm, oval, low attenuation lesions are scattered within left > right kidneys. Stomach and bowel: Several loops of proximal-mid small bowel are moderately and mildly dilated with air-fluid levels, with decompressed distal small bowel, without discrete transition point, favoring ileus. Fatty hypertrophy of ileocecal valve suggests lipomatosis. A few, air-fluid levels are scattered within nondilated cecum, right colon, and hepatic flexure, suggesting colonic ileus or diarrhea. Mesh deep to right internal inguinal ring suggests inguinal hernia repair. Appendix: No evidence of appendicitis. Intraperitoneal space: No pneumoperitoneum. No free fluid. No loculated fluid collection. Retroperitoneal space: No free fluid. Vasculature: Visualized descending thoracic aorta is mildly tortuous. Abdominal aorta, bilateral femoral arteries, and origin of left main renal artery are mild-moderately calcified. Bilateral iliac arteries are moderately calcified. Right proximal main renal artery and origins of celiac and superior mesenteric arteries are mildly calcified. Mild-moderate, eccentric, low density areas scattered at fields of abdominal aorta, proximal superior mesenteric, proximal right main renal, and bilateral iliac and femoral arteries suggest atheromas. Proximal superior mesenteric artery is narrowed by approximately 33%. Infrarenal IVC filter is in position. Lymph nodes: No radiographically enlarged lymph nodes. Urinary bladder: Grossly normal. Reproductive: Grossly normal. Bones/joints: For numbering purposes, there are assumed to be 11 rib-bearing thoracic and 6 lumbar vertebrae. T11-12 vertebrae remain mildly wedged anteriorly, suggesting mild, chronic, compression fractures. Bilateral transverse processes of L1 vertebra are incidentally nonunited (variant). < 1.2 cm, oval, well-defined, lytic lesion with central, striated, sclerotic areas within T8 vertebral body is partially visualized, but appears stable from 07/19/17, favoring benign hemangioma. Concavities at endplates of a few, lower thoracic and upper lumbar vertebrae and < 8 mm, oval, well-defined lucency superior endplate of L4 vertebra suggest incidental Schmorl's nodes. Gas within L5/6 disc suggests vacuum disc. Degenerative disc disease of lower thoracic and several levels of lumbar spine and degenerative facet disease of a few levels of lumbar spine are present. Deformity of left femoral neck suggests old, healed fracture. A few, < 1 cm, oval and lobulated, well-defined, sclerotic lesions at right femoral neck and intertrochanteric region statistically probably represent benign bone islands. A few, < 1.1 cm, oval, well-defined lucencies with sclerotic margins at bilateral anterior femoral necks likely reflect incidental herniation pits. There is moderate osteoarthritis of left hip. Mild traction osteophytes at bilateral ischial tuberosities are evident. Three partially cannulated screws extending into left femoral intertrochanteric region, neck, and head are unchanged. Soft tissues: Grossly unremarkable. CT/CT abdomen pelvis w con* [id number] IMPRESSION: 1. Fatty liver. 2. Unchanged, 1 x 1.1 cm, complex cystic lesion at lower pole of left kidney, with stability favoring benign lesion. A few, < 7 mm, low attenuation lesions scattered within left > right kidneys, too small to definitively characterize, but probably benign. No further work-up is recommended. 3. Small bowel ileus. Colonic ileus or diarrhea. S/P right inguinal hernia repair. 4. Atherosclerosis. 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 IVC filter. COMMENTS: 1. For patients with an IVC filter, recommend assessment for a management plan for the patient's IVC filter. If there is no established management plan, recommend referral to an interventional clinician on a nonemergent basis for evaluation. 2. Consistent with the [employer]'s Incidental Findings Committee white paper (J Am Flip Radiol 2018): Any incidental renal lesion less than 1 cm or classified as too small to characterize, or any incidental cystic renal lesion characterized as simple-appearing, is likely benign. No follow-up imaging is recommended for these lesions per consensus recommendations based on imaging criteria.
--- NOTE | 2024-03-22 18:57 | W.ED.WOUNDLC ---
HPI - Wound/Laceration General: Chief Complaint: Wound/Laceration Stated Complaint: large infected bite, n/v post abd surg Time Seen by Provider: 03/22/24 18:54 History of Present Illness: 64-year-old man who presents emergency room with nausea, vomiting and diarrhea now with some weakness. No focal abdominal pain. He does have a area where he had surgery before that he feels a bump that he is worried about. No known fevers. He is also complaining of a lesion on his left arm he thinks is from a spider bite. He had drained some fluid out of it. Now it is just a hard red lesion. Related Data Home Medications Medication Instructions Recorded Confirmed aspirin 81 mg tablet,delayed 81 mg PO DAILY 07/13/22 09/29/22 release Previous Rx's Medication Instructions Recorded atorvastatin 10 mg tablet (Lipitor) 10 mg PO DAILY circulation #30 tabs 07/13/22 omeprazole 20 mg capsule,delayed 20 mg PO DAILY PRN Acid Reflux #30 07/13/22 release caps hydrocodone 5 mg-acetaminophen 325 1 tab PO Q6H PRN pain #14 tabs 09/07/23 mg tablet ondansetron 4 mg disintegrating 4 mg PO Q6H PRN nausea and 09/07/23 tablet vomiting #14 tabs cefdinir 300 mg capsule 300 mg PO BID 7 days #14 caps 03/22/24 ondansetron 8 mg disintegrating 8 mg PO Q6H #14 tabs 03/22/24 tablet Allergies Allergy/AdvReac Type Severity Reaction Status Date / Time codeine Allergy ALGY-Rash Verified 03/22/24 14:59 Penicillins Allergy ALGY-Rash Verified 03/22/24 14:59 Review of Systems Narrative: Constitutional symptoms: Negative except as documented in HPI. Skin symptoms: Negative except as documented in HPI. Eye symptoms: Negative except as documented in HPI. ENMT symptoms: Negative except as documented in HPI. Respiratory symptoms: Negative except as documented in HPI. Cardiovascular symptoms: Negative except as documented in HPI. Gastrointestinal symptoms: Negative except as documented in HPI. Genitourinary symptoms: Negative except as documented in HPI. Musculoskeletal symptoms: Negative except as documented in HPI. Neurologic symptoms: Negative except as documented in HPI. Psychiatric symptoms: Negative except as documented in HPI. Endocrine symptoms: Negative except as documented in HPI. PFSH ED PFSH: Medical History (Updated 03/22/24 @ 20:42 by Anushka Spaulding MD) CKD (chronic kidney disease), stage II Mouth droop due to facial weakness 02/12/2023 ER evaluation and review with MRI of head 11/23/2021 negative, 02/12/2022 CT of head and MRI of head negative without signs of any CVA Pulmonary emboli 2019 Chronic headaches Surgical History (Updated 09/23/23 @ 06:31 by Art Cheng MD) Status post colonoscopy with polypectomy (01/08/20) 01/08/2020 Dr. Alamo sigmoid polyp H/O esophagogastroduodenoscopy (01/08/20) 01/08/2020 esophagitis, gastritis, duodenitis Status post right inguinal hernia repair 11/23/2019 Dr. Alamo Status post hip surgery 10/31/2019 entered S/p small bowel obstruction SBO surgery 03/2022 History of throat surgery H/O circumcision S/P IVC filter Family History Denies family history of Diabetes CAD (coronary artery disease) Anesthesia complication Bleeding disorder Cancer Social History Smoking and tobacco/nicotine status: current every day tobacco/nicotine user Alcohol intake: never Substance/Drug Use: never Household members: significant other Marital status: Single Current occupational status: employed Physical Exam Narrative: EXAM NARRATIVE: General: Alert, no acute distress. Skin: Warm, dry. Head: Normocephalic, atraumatic. Neck: Supple, trachea midline. Eye: Extraocular movements are intact. Ears, nose, mouth and throat: Dry oral mucosa Cardiovascular: Regular, Normal peripheral perfusion. Respiratory: Lungs are clear to auscultation, respirations are non-labored, breath sounds are equal, Symmetrical chest wall expansion. Gastrointestinal: Soft, Nontender, Non distended Musculoskeletal: Normal ROM, no deformity. Neurological: Alert and oriented, No focal neurological deficit observed. Psychiatric: Cooperative, appropriate mood & affect. Course Vital Signs: Vital signs: Vital Signs Temperature 97.4 F L 03/22/24 15:00 Pulse Rate 108 H 03/22/24 21:30 Respiratory Rate 18 03/22/24 21:30 Blood Pressure 105/65 03/22/24 21:30 Pulse Oximetry 96 03/22/24 21:30 Oxygen Delivery Me thod Room Air 03/22/24 21:30 MDM - Wound/Laceration Medical Decision Making Medical decision making: Differential diagnosis for this patient with nausea and vomiting including but not limited to and based on the above HPI, review of systems and physical exam: Urinary tract infection. Appendicitis. Cholecystis. colitis. small bowel obstruction. crohn's flare. pancreatitis. gastritis. peptic ulcer. cyclic vomiting. Viral illness. Influenza. COVID. - Workup - labwork and imaging ordered to evaluate, rule in and rule out above pathologies. Lab Review: Laboratory results were reviewed and interpreted by myself the emergency room physician. No leukocytosis. Hemoglobin is little high at 18.5 which would indicate some hemoconcentration. BUN/creatinine are elevated above his baseline at [address] of the abdomen pelvis shows a cystic lesion on the kidney that is unchanged. Small bowel ileus versus colonic ileus or diarrhea. Patient has had copious diarrhea. Fever just diarrhea over an actual ileus. He is now tolerating fluids. I reviewed the patient's medical record. Reexamination: Patient remained stable. No increased work of breathing. No altered mental status. No focal motor deficits. Patient says he is feeling quite a bit better after having fluids and Zofran. Heart rate has come down with fluids. He is now tolerating p.o. Assessment and plan: Viral gastroenteritis Dehydration Acute kidney injury Left upper extremity cellulitis ?IV clindamycin, IV normal saline bolus, IV Zofran. ?Fluids were needed as patient was tachycardic and borderline hypotensive with some renal insufficiency. We will attempt p.o. hydration at home now. If he fails he will need to come back to the emergency room - Discharged home - Discussed plan with patient. Answered any questions. - Evaluation and treatment of this problem were appropriate in the emergency setting. Lab Data 03/22/24 14:50 03/22/24 14:50 Radiology Impressions Abdomen/Pelvis CT 03/22/24 18:57 IMPRESSION: 1. Fatty liver. 2. Unchanged, 1 x 1.1 cm, complex cystic lesion at lower pole of left kidney, with stability favoring benign lesion. A few, < 7 mm, low attenuation lesions scattered within left > right kidneys, too small to definitively characterize, but probably benign. No further work-up is recommended. 3. Small bowel ileus. Colonic ileus or diarrhea. S/P right inguinal hernia repair. 4. Atherosclerosis. 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 IVC filter. COMMENTS: 1. For patients with an IVC filter, recommend assessment for a management plan for the patient's IVC filter. If there is no established management plan, recommend referral to an interventional clinician on a nonemergent basis for evaluation. 2. Consistent with the [employer]'s Incidental Findings Committee white paper (J Am Flip Radiol 2018): Any incidental renal lesion less than 1 cm or classified as too small to characterize, or any incidental cystic renal lesion characterized as simple-appearing, is likely benign. No follow-up imaging is recommended for these lesions per consensus recommendations based on imaging criteria. Laboratory Results WBC 8.28 10^3/uL (3.29-11.43) 03/22/24 14:50 RBC 6.04 10^6/uL (3.85-5.65) H 03/22/24 14:50 Hgb 18.50 g/dL (11.27-16.99) H 03/22/24 14:50 Hct 55.3 % (37-53) H 03/22/24 14:50 MCV 91.6 fl (82-101) 03/22/24 14:50 MCH 30.6 pg (27-33) 03/22/24 14:50 MCHC 33.5 g/dL (30-55) 03/22/24 14:50 RDW 12.6 % (12.1-15.1) 03/22/24 14:50 Plt Count 357 10^3/cmm (157-399) 03/22/24 14:50 MPV 10.3 fL (7.4-10.4) 03/22/24 14:50 Neut % (Auto) 72.3 % 03/22/24 14:50 Lymph % (Auto) 16.3 % 03/22/24 14:50 Castro % (Auto) 10.1 % 03/22/24 14:50 Eos % (Auto) 0.4 % 03/22/24 14:50 Baso % (Auto) 0.5 % 03/22/24 14:50 Neut # (Auto) 5.99 10^3/uL (1.8-7.7) 03/22/24 14:50 Lymph # (Auto) 1.4 10^3/uL (0.8-4.8) 03/22/24 14:50 Castro # (Auto) 0.8 10^3/uL (0.2-0.9) 03/22/24 14:50 Eos # (Auto) 0.0 10^3/uL (0.0-0.8) 03/22/24 14:50 Baso # (Auto) 0.0 10^3/uL (0.0-0.1) 03/22/24 14:50 Nucleated RBC % (auto) 0 % 03/22/24 14:50 Nucleated RBCs # 0.0 /100WBC 03/22/24 14:50 Sodium 135 mmol/L (136-145) L 03/22/24 14:50 Potassium 4.2 mmol/L (3.5-5.1) 03/22/24 14:50 Chloride 96 mmol/L (98-107) L 03/22/24 14:50 Carbon Dioxide 25 mmol/L (22-29) 03/22/24 14:50 Anion Gap 18.2 (5-19) 03/22/24 14:50 BUN 25 mg/dL (8-23) H 03/22/24 14:50 Creatinine 1.5 mg/dL (0.7-1.2) H 03/22/24 14:50 GFR Calculation 47.1 mL/min (90-130) L 03/22/24 14:50 Glucose 128 mg/dL (65-115) H 03/22/24 14:50 Calculated Osmolality 286 mOsm/kg (285-295) 03/22/24 14:50 Lactic Acid 2.0 mmol/L (0.5-2.2) 03/22/24 18:24 Calcium 9.4 mg/dL (8.5-10.5) 03/22/24 14:50 Total Bilirubin 0.9 mg/dL (0.15-1.2) 03/22/24 14:50 AST 13 U/L (0-40) 03/22/24 14:50 ALT 24 U/L (0-41) 03/22/24 14:50 Alkaline Phosphatase 130 U/L (40-130) 03/22/24 14:50 Total Protein 8.3 g/dL (6.6-8.7) 03/22/24 14:50 Albumin 4.4 g/dL (3.5-5.2) 03/22/24 14:50 Globulin 3.9 g/dL (1.3-4.6) 03/22/24 14:50 Lipase 21 U/L (13-60) 03/22/24 14:50 All radiology interpretation(s) finalized by discharge Discharge Plan Discharge Patient Disposition: Home Clinical Impression: Viral gastroenteritis, Dehydration, Acute renal insufficiency, Cellulitis Condition: Stable Prescriptions: New ondansetron 8 mg tablet,disintegrating 8 mg PO Q6H Qty: 14 0RF Rx Instructions: Take 1/2-1 tab every 6 hours as needed for nausea and vomiting cefdinir 300 mg capsule 300 mg PO BID 7 Days Qty: 14 0RF No Action atorvastatin [Lipitor] 10 mg tablet 10 mg PO DAILY Qty: 30 5RF omeprazole 20 mg capsule,delayed release(DR/EC) 20 mg PO DAILY PRN (Reason: Acid Reflux) Qty: 30 5RF aspirin 81 mg tablet,delayed release (DR/EC) 81 mg PO DAILY hydrocodone-acetaminophen 5-325 mg tablet 1 tab PO Q6H PRN (Reason: pain) Qty: 14 0RF ondansetron 4 mg tablet,disintegrating 4 mg PO Q6H PRN (Reason: nausea and vomiting) Qty: 14 0RF Discharge Orders: Discharge ED (Routine); Ordered 03/22/24 Ordered By: Anushka Spaulding Referrals: Art Cheng MD [Primary Care Provider] - Discharge Diet: Advance as tolerated and Full LIquid Patient Instructions: Dehydration (ED), Gastroenteritis (ED) Activity Restrictions/Additional Instructions: Return to the emergency room if you are not able to keep down fluids. Thank you for choosing [facility] for your healthcare needs today. Please realize this is an emergency room and that we are providing you with a medical screening exam and this may not be complete and all inclusive of all the testing and or work up that you may need to determine your ailment or severity of your illness. You have been screened and evaluated and felt safe for discharge. Health conditions do change or evolve sometimes and as such it is important that you follow up with your Primary Doctor to be re checked, 3-5 days is a general good time frame for follow up. You are always welcome to return to the ED for re assessment if your symptoms are worsening or you have new concerns Coding Level of Care Code ED [employer] for Luis Tate
[2024-03-22] MEDS: ondansetron 2 mg/ML SDV 2 mL 4 MG IVP (19:13)
[2024-03-22] MEDS: sodium chloride 0.9% 1,000 ML 999 ML IV (19:14)
[2024-03-22] MEDS: clindamycin 900 MG/50 ML PREMIX 100 MG IV (19:14)
[2024-03-22 19:19] VITALS: BP 105/87; PULSE 96; O2SAT 94
--- NOTE | 2024-03-22 19:28 | PC.NURSE ---
This nurse took over patient care at shift change from Lizzie Mittal.
[2024-03-22] MEDS: iohexol 350 mg/mL 500 mL Btl (per mL) IV (19:33)
[2024-03-22 20:14] VITALS: BP 106/82; PULSE 86; O2SAT 96
[2024-03-22 20:38] VITALS: BP 117/80; O2SAT 97
[2024-03-22 21:30] VITALS: BP 105/65; PULSE 108; RESP 18; O2SAT 96
[2024-03-22] MEDS: ondansetron 2 mg/ML SDV 2 mL 8 MG IVP (21:50)
[2024-03-22] MEDS: ondansetron 4 MG Tablet 8 MG PO (21:53)
[2024-03-22 23:07] VITALS: BP 125/86; PULSE 104; O2SAT 96
== END 2024-03-22 23:08 | disposition home or self-care (01) ==
PROVIDERS: Emergency Medicine; Nurse Practitioner Family; Emergency Provider Emergency Medicine; PCP Family Medicine Adult Medicine
DX: A08.4 Viral intestinal infection, unspecified (principal); E86.0 Dehydration; N28.9 Disorder of kidney and ureter, unspecified; L03.90 Cellulitis, unspecified; Z79.82 Long term (current) use of aspirin; Z72.0 Tobacco use; N18.2 Chronic kidney disease, stage 2 (mild)
CPT/HCPCS: 36415; 74177; 80053; 83605; 83690; 85025; 87040; 96365; 96375; 96376; 99285; J2405; J3490; J7030; Q0162

== ENCOUNTER 2025-05-11 12:21 | Emergency (ER) | payer MEDICARE, SELFPAY ==
[2025-05-11] VITALS (9 sets, daily range): BP systolic 122–156; BP diastolic 73–92; PULSE 72–103; RESP 13–18; TEMP 36.4; O2SAT 95–98; BMI 28.2
--- NOTE | 2025-05-11 12:58 | CTR_ITS ---
PROCEDURE INFORMATION: Exam: CTA Neck With Contrast Exam date and time: 05/11/2025 1:53 PM Age: 65 years old Clinical indication: Weakness; Other: Right arm pain and numbness; Additional info: Concern for subclavian steal syndrome TECHNIQUE: Imaging protocol: Computed tomographic angiography of the neck with contrast. Exam focused on the cervical segments of the vasculature. 3D rendering (Not supervised by radiologist): MIP and/or 3D reconstructed images were created by the technologist. Radiation optimization: All CT scans at this facility use at least one of these dose optimization techniques: automated exposure control; mA and/or kV adjustment per patient size (includes targeted exams where dose is matched to clinical indication); or iterative reconstruction. Contrast material: OMNIPAQUE 350; Contrast volume: 100 ml; Contrast route: INTRAVENOUS (IV); COMPARISON: CTA Chest-Pulmonary Emb [id number] 07/19/2017 4:50 PM RADIATION DOSE METRICS: Total DLP (mGy-cm): 434.3 FINDINGS: Right common carotid artery: No stenosis. No dissection or occlusion. Right internal carotid artery: No stenosis of the extracranial segment. No dissection or occlusion. Right external carotid artery: No occlusion or stenosis of the origin. Left common carotid artery: No stenosis. No dissection or occlusion. Left internal carotid artery: No stenosis of the extracranial segment. No dissection or occlusion. Left external carotid artery: No occlusion or stenosis of the origin. Right vertebral artery: Moderate stenosis of the origin of the right vertebral artery. Image 123 series 6 and image 97 series 4. The right vertebral artery is also mildly hypoplastic. Left vertebral artery: No stenosis. No dissection or occlusion. Soft tissues: Normal. No significant soft tissue swelling. Bones/joints: No acute fracture. CT/CT angio neck [id number] IMPRESSION: Moderate stenosis of the origin of the right vertebral artery. REFERENCES: NASCET CRITERIA. The degree of stenosis in the cervical segment of the internal carotid artery is based on NASCET criteria. Normal is no stenosis. Mild is less than 50% stenosis. Moderate is 50-69% stenosis. Severe is 70% to 99% stenosis. Total occlusion is no detectable patent lumen.
--- NOTE | 2025-05-11 13:04 | W.ED.EXTPRO ---
HPI - Extremity Problem General: Chief complaint: Extremity Injury, Upper Stated complaint: R Arm pain going up to neck Time Seen by Provider: 05/11/25 12:44 History of Present Illness: Patient is a 65-year-old gentleman with history of PE, CAD, bowel resection, presents to the emergency room with severe right proximal shoulder pain, upper right and posterior right chest. This has been worsening over the last month. Last night, he could not raise his arm, move his arm, and the spasming woke him up multiple times. Right arm blood pressure: 124/83 Left arm blood pressure: 137/81 He denies any central chest pain tenderness. Patient states he cannot lift his arm upwards. He has strength in his fingers without sensation changes. His proximal humerus has numbness tingling, spasming, and coolness Associated symptoms: Deny chest pain, fever(s) or rash Related Data Home Medications ?Medication ?Instructions ?Recorded ?Confirmed aspirin 81 mg tablet,delayed 81 mg PO DAILY 07/13/22 09/29/22 release Previous Rx's ?Medication ?Instructions ?Recorded atorvastatin 10 mg tablet (Lipitor) 10 mg PO DAILY circulation #30 tabs 07/13/22 omeprazole 20 mg capsule,delayed 20 mg PO DAILY PRN Acid Reflux #30 07/13/22 release caps hydrocodone 5 mg-acetaminophen 325 1 tab PO Q6H PRN pain #14 tabs 09/07/23 mg tablet ondansetron 4 mg disintegrating 4 mg PO Q6H PRN nausea and 09/07/23 tablet vomiting #14 tabs ondansetron 8 mg disintegrating 8 mg PO Q6H #14 tabs 03/22/24 tablet clopidogrel 75 mg tablet (Plavix) 75 mg PO DAILY #30 tabs 05/11/25 gabapentin 300 mg capsule 600 mg (2 x 300 mg) PO BEDTIME 1 05/11/25 day #60 caps Allergies Allergy/AdvReac Type Severity Reaction Status Date / Time codeine Allergy ALGY-Rash Verified 05/11/25 12:36 Penicillins Allergy ALGY-Rash Verified 05/11/25 12:36 Review of Systems General: Reports: 10 or more systems reviewed and unremarkable except in HPI and below Const: Denies: fever(s), chills, body aches or change in appetite ENMT: Denies: throat pain or dental pain Card: Denies: chest pain or palpitations Resp: Reports: non-productive cough (chronic); Denies: dyspnea GI: Reports: abdominal pain; Denies: nausea, vomiting or diarrhea : Denies: dysuria Musc: Denies: neck pain or back pain Skin/Breast: Denies: rash Neuro: Reports: numbness in extremities and sensory changes; Denies: headache(s), weakness in extremities, lack of coordination, difficulty walking, frequent falls, dizziness, vertigo or Slurred speech present Psych: Denies: anxiety or depression PFSH ED PFSH: Medical History (Updated 05/11/25 @ 15:08 by REMINGTON Shannon) CKD (chronic kidney disease), stage II Mouth droop due to facial weakness 02/12/2023 ER evaluation and review with MRI of head 11/23/2021 negative, 02/12/2022 CT of head and MRI of head negative without signs of any CVA Pulmonary emboli 2019 Chronic headaches Surgical History (Updated 09/23/23 @ 06:31 by rAt Cheng MD) Status post colonoscopy with polypectomy (01/08/20) 01/08/2020 Dr. Alamo sigmoid polyp H/O esophagogastroduodenoscopy (01/08/20) 01/08/2020 esophagitis, gastritis, duodenitis Status post right inguinal hernia repair 11/23/2019 Dr. Alamo Status post hip surgery 10/31/2019 entered S/p small bowel obstruction SBO surgery 03/2022 History of throat surgery H/O circumcision S/P IVC filter Family History Denies family history of Diabetes CAD (coronary artery disease) Anesthesia complication Bleeding disorder Cancer Social History Smoking and tobacco/nicotine status: current every day tobacco/nicotine user Alcohol intake: never Substance/Drug Use: never Household members: significant other Marital status: Single Current occupational status: employed Physical Exam Const: COMMON NORMALS: no acute distress, patient oriented x3 and healthy appearing HENMT: COMMON NORMALS: normocephalic and atraumatic HEAD & SCALP: normocephalic and atraumatic Neck/C-Spine: COMMON NORMALS: full ROM and supple Chest: COMMONS NORMALS: normal inspection of the chest and normal palpation of entire chest wall Resp: COMMON NORMALS: normal respiratory effort, No retractions, No use of accessory muscles and clear to auscultation bilaterally AUSCULTATION: clear to auscultation bilaterally Cardio: COMMON NORMALS: regular rate, regular rhythm and No murmurs present (Cardio) RATE: regular rate RHYTHM: regular rhythm GI: COMMON NORMALS: Normal to inspection, nondistended, normoactive bowel sounds present and Soft to palpation PALPATION: Yes Soft to palpation Extremity: COMMON NORMALS: normal to inspection NARRATIVE EXTREMITY EXAM: Tenderness right proximal humerus, right upper distal clavicle, posterior lateral scapula. No coolness. Distally, pulses are present with ulna and radius. Neuro: COMMON NORMALS: patient oriented x3, moves all extremities and no focal motor deficits Psych: COMMON NORMALS: mental status grossly normal, Normal thought process present and cooperative THOUGHT PROCESS: Normal thought process present Skin: COMMON NORMALS: no rashes or lesions noted and no wounds GENERAL SKIN EXAM: no rashes or lesions noted Course Vital Signs: Vital signs: Vital Signs Temperature 97.5 F L 05/11/25 12:26 Pulse Rate 74 05/11/25 15:34 Respiratory Rate 18 05/11/25 15:00 Blood Pressure 140/87 05/11/25 15:34 Pulse Oximetry 97 05/11/25 15:34 Oxygen Delivery Me thod Room Air 05/11/25 12:56 MDM - Extremity (Nontraumatic) Medical Decision Making Patient does have a significant blood pressure discrepancy from upper extremities. I am considering with his symptoms association of subclavian steal syndrome. Discussed with CT RTR, they will obtain a CT angio neck, and make sure the subclavian is included with the runoff. Since he has a history of PE in 2019, I will also add on a D-dimer with concern of coagulopathy as differential. Medical Records I reviewed the patient's medical records. Lab Data I reviewed the patient's lab results. 05/11/25 13:01 05/11/25 13:01 Radiology Impressions Neck CTA 05/11/25 12:58 IMPRESSION: Moderate stenosis of the origin of the right vertebral artery. REFERENCES: NASCET CRITERIA. The degree of stenosis in the cervical segment of the internal carotid artery is based on NASCET criteria. Normal is no stenosis. Mild is less than 50% stenosis. Moderate is 50-69% stenosis. Severe is 70% to 99% stenosis. Total occlusion is no detectable patent lumen. Laboratory Results WBC 6.89 10^3/uL (3.29-11.43) 05/11/25 13:01 RBC 5.11 10^6/uL (3.85-5.65) 05/11/25 13:01 Hgb 15.50 g/dL (11.27-16.99) 05/11/25 13:01 Hct 46.0 % (37-53) 05/11/25 13:01 MCV 90.0 fl (82-101) 05/11/25 13:01 MCH 30.3 pg (27-33) 05/11/25 13:01 MCHC 33.7 g/dL (30-55) 05/11/25 13:01 RDW 12.7 % (12.1-15.1) 05/11/25 13:01 Plt Count 246 10^3/cmm (157-399) 05/11/25 13:01 MPV 9.7 fL (7.4-10.4) 05/11/25 13:01 Neut % (Auto) 65.2 % 05/11/25 13:01 Lymph % (Auto) 25.1 % 05/11/25 13:01 [place] % (Auto) 7.0 % 05/11/25 13:01 Eos % (Auto) 1.7 % 05/11/25 13:01 Baso % (Auto) 0.7 % 05/11/25 13:01 Neut # (Auto) 4.49 10^3/uL (1.8-7.7) 05/11/25 13:01 Lymph # (Auto) 1.7 10^3/uL (0.8-4.8) 05/11/25 13:01 [place] # (Auto) 0.5 10^3/uL (0.2-0.9) 05/11/25 13:01 Eos # (Auto) 0.1 10^3/uL (0.0-0.8) 05/11/25 13:01 Baso # (Auto) 0.1 10^3/uL (0.0-0.1) 05/11/25 13:01 Nucleated RBC % (auto) 0 % 05/11/25 13:01 Nucleated RBCs # 0.0 /100WBC 05/11/25 13:01 D-Dimer 0.33 ug/mLFEU (0-0.59) 05/11/25 13:01 Sodium 139 mmol/L (136-145) 05/11/25 13:01 Potassium 4.0 mmol/L (3.5-5.1) 05/11/25 13:01 Chloride 104 mmol/L (98-107) 05/11/25 13:01 Carbon Dioxide 25 mmol/L (22-29) 05/11/25 13:01 Anion Gap 14.0 (5-19) 05/11/25 13:01 BUN 17 mg/dL (8-23) 05/11/25 13:01 Creatinine 0.9 mg/dL (0.7-1.2) 05/11/25 13:01 GFR Calculation 84.7 mL/min (90-130) L 05/11/25 13:01 Glucose 112 mg/dL (65-115) 05/11/25 13:01 Calculated Osmolality 290 mOsm/kg (285-295) 05/11/25 13:01 Calcium 9.3 mg/dL (8.5-10.5) 05/11/25 13:01 Total Bilirubin 0.4 mg/dL (0.15-1.2) 05/11/25 13:01 AST 13 U/L (0-40) 05/11/25 13:01 ALT 17 U/L (0-41) 05/11/25 13:01 Alkaline Phosphatase 93 U/L (40-130) 05/11/25 13:01 Total Protein 7.0 g/dL (6.6-8.7) 05/11/25 13:01 Albumin 4.0 g/dL (3.5-5.2) 05/11/25 13:01 Globulin 3.0 g/dL (1.3-4.6) 05/11/25 13:01 All radiology interpretation(s) finalized by discharge EKG Data EKG 1: Interpretation: Normal sinus rhythm, normal axis, QTc 377 Discharge Plan Discharge Patient Disposition: Home Clinical Impression: 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 Condition: Stable Prescriptions: New clopidogrel [Plavix] 75 mg tablet 75 mg PO DAILY Qty: 30 0RF gabapentin 300 mg capsule 600 mg PO BEDTIME 1 Days Qty: 60 0RF No Action atorvastatin [Lipitor] 10 mg tablet 10 mg PO DAILY Qty: 30 5RF omeprazole 20 mg capsule,delayed release(DR/EC) 20 mg PO DAILY PRN (Reason: Acid Reflux) Qty: 30 5RF aspirin 81 mg tablet,delayed release (DR/EC) 81 mg PO DAILY hydrocodone-acetaminophen 5-325 mg tablet 1 tab PO Q6H PRN (Reason: pain) Qty: 14 0RF ondansetron 4 mg tablet,disintegrating 4 mg PO Q6H PRN (Reason: nausea and vomiting) Qty: 14 0RF ondansetron 8 mg tablet,disintegrating 8 mg PO Q6H Qty: 14 0RF Rx Instructions: Take 1/2-1 tab every 6 hours as needed for nausea and vomiting Discharge Orders: Discharge ED (Routine); Ordered 05/11/25 Ordered By: Mayra Penaloza Referrals: Art Cheng MD [Primary Care Provider, Family Practice] Discharge Diet: Low Salt Patient Instructions: Carotid Artery Disease (DC), Patient Portal & Yosvany Instructions Activity Restrictions/Additional Instructions: - Do not smoke - At the pharmacy: Clopidogrel/Plavix. This is an antiplatelet agent similar to aspirin. Continue your baby aspirin. This is to reduce your risk of stroke Gabapentin. This is for peripheral nerve pain. You may also take Tylenol. Avoid NSAIDs as clopidogrel/Plavix can increase your bleeding risk - Case management referral to vascular has been made. - Return to the ED with worsening pain Thank you for choosing [facility] for your healthcare needs today. You have been screened and evaluated and felt safe for discharge. Health conditions do change or evolve sometimes and as such it is important that you follow up with your Primary Doctor to be re checked, 3-5 days is a general good time frame for follow up. You are always welcome to return to the ED for re assessment if your symptoms are worsening or you have new concerns Print Language: Belizean Coding Level of Care Code ED Gold Frame Assembler for Luis Tate
[2025-05-11 13:16] LABS: Hematocrit 46.0 % (37-53); Hemoglobin 15.50 g/dL (11.27-16.99); Mean Corpuscular HGB Conc 33.7 g/dL (30-55); Mean Corpuscular Hemoglobin 30.3 pg (27-33); Mean Corpuscular Volume 90.0 fl (82-101); Nucleated Red Blood Cells % 0 %; Platelet Count 246 10^3/cmm (157-399); Red Blood Count 5.11 10^6/uL (3.85-5.65); White Blood Count 6.89 10^3/uL (3.29-11.43)
--- NOTE | 2025-05-11 13:22 | ECG_ITS ---
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
[2025-05-11 13:38] LABS: Alanine Aminotransferase 17 U/L (0-41); Albumin Level 4.0 g/dL (3.5-5.2); Alkaline Phosphatase 93 U/L (40-130); Anion Gap 14.0 (5-19); Aspartate Amino Transferase 13 U/L (0-40); Blood Urea Nitrogen 17 mg/dL (8-23); Calcium 9.3 mg/dL (8.5-10.5); Carbon Dioxide 25 mmol/L (22-29); Chloride 104 mmol/L (98-107); Globulin 3.0 g/dL (1.3-4.6); Glucose 112 mg/dL (65-115); Osmolality Calculated 290 mOsm/kg (285-295); Potassium 4.0 mmol/L (3.5-5.1); Sodium 139 mmol/L (136-145); Total Protein 7.0 g/dL (6.6-8.7)
[2025-05-11] MEDS: HYDROcodone-acetaminophen 10-325 mg Tablet 1 TAB PO (15:32)
== END 2025-05-11 15:39 | disposition home or self-care (01) ==
PROVIDERS: Emergency Provider Physician Assistant; PCP Family Medicine Adult Medicine
DX: I65.01 Occlusion and stenosis of right vertebral artery (principal); Z79.82 Long term (current) use of aspirin; Z72.0 Tobacco use; I25.10 Atherosclerotic heart disease of native coronary artery without angina pectoris; N18.2 Chronic kidney disease, stage 2 (mild)
CPT/HCPCS: 70498; 80053; 85025; 85378; 93005; 99284; J9999

== ENCOUNTER 2025-05-13 20:48 | Emergency (ER) | payer MEDICARE, SELFPAY ==
[2025-05-13 21:10] VITALS: BP 124/83; PULSE 88; RESP 16; TEMP 36.4; O2SAT 98; BMI 29.5
--- NOTE | 2025-05-13 22:05 | XRR_ITS ---
PROCEDURE INFORMATION: Exam: XR Right Shoulder Exam date and time: 05/13/2025 10:12 PM Age: 65 years old Clinical indication: Right shoulder pain, no known injury/trauma. PT reports to er from home with C/O R neck pain radiating in to R shoulder and elbow r/t known blood clot PT states was found via CT 05/11/25. TECHNIQUE: Imaging protocol: Radiologic exam of the right shoulder. Views: 2 or more views. COMPARISON: CT angio neck [id number] 05/11/2025 1:53 PM FINDINGS: Bones/joints: Early mild degenerative changes right AC joint inferior right glenohumeral joint. No acute appearing bony abnormality is demonstrated.. Soft tissues: Normal. XR/XR shoulder RT min 2V* [id number] IMPRESSION: No acute findings.
--- NOTE | 2025-05-13 22:06 | ED_ITS ---
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 He was seen for this over the weekend and a CTA of the neck did reveal some moderate stenosis of a right vertebral artery and he was started on Plavix he is continue to have arm pain. He said this is worsened. He is having what appears to be musculoskeletal pain. But is quite concerned that the vertebral artery occlusion may have been was causing his issues. Pain is in his shoulder and deltoid. Worse with movement. Also hurts with passive range of motion Related Data Home Medications ?Medication ?Instructions ?Recorded ?Confirmed aspirin 81 mg tablet,delayed 81 mg PO DAILY 07/13/22 0 09/29/22 release Previous Rx's ?Medication ?Instructions ?Recorded atorvastatin 10 mg tablet (Lipitor) 10 mg PO DAILY cir culation #30 tabs 07/13/22 omeprazole 20 mg capsule,delayed 20 mg PO DAILY PRN Ac id Reflux #30 07/13/22 release caps hydrocodone 5 mg-acetaminophen 325 1 tab PO Q6H PRN pa in #14 tabs 09/07/23 mg tablet ondansetron 4 mg disintegrating 4 mg PO Q6H PRN nausea and 09/07/23 tablet vomiting #14 tabs ondansetron 8 mg disintegrating 8 mg PO Q6H #14 tabs 1 tablet clopidogrel 75 mg tablet (Plavix) 75 mg PO DAILY #30 t abs 05/11/25 cyclobenzaprine 10 mg tablet 10 mg PO Q8H PRN muscle s pasm #20 05/13/25 tabs prednisone 20 mg tablet 60 mg (3 x 20 mg) PO DAILY # 20 tabs 05/13/25 tramadol 50 mg tablet 50 mg PO Q8H PRN pain #20 ta bs 05/13/25 Allergies Allergy/AdvReac Type Severity Reaction Status Date / Time codeine Allergy ALGY-Rash Verified 05/11/25 12:36 Penicillins Allergy ALGY-Rash Verified 05/11/25 12:36 Review of Systems Narrative: Constitutional symptoms: Negative except as documented in HPI. Skin symptoms: Negative except as documented in HPI. Eye symptoms: Negative except as documented in HPI. ENMT symptoms: Negative except as documented in HPI. Respiratory symptoms: Negative except as documented in HPI. Cardiovascular symptoms: Negative except as documented in HPI. Gastrointestinal symptoms: Negative except as documented in HPI. Genitourinary symptoms: Negative except as documented in HPI. Musculoskeletal symptoms: Negative except as documented in HPI. Neurologic symptoms: Negative except as documented in HPI. Psychiatric symptoms: Negative except as documented in HPI. Endocrine symptoms: Negative except as documented in HPI. PFSH ED PFSH: Medical History (Updated 05/13/25 @ 22:54 by Anushka Spaulding MD) CKD (chronic kidney disease), stage II Mouth droop due to facial weakness 02/12/2023 ER evaluation and review with MRI of head 11/23/2021 negative, 02/12/2022 CT of head and MRI of head negative without signs of any CVA Pulmonary emboli 2019 Chronic headaches Surgical History (Updated 09/23/23 @ 06:31 by Art Cheng MD) Status post colonoscopy with polypectomy (01/08/20) 01/08/2020 Dr. Alamo sigmoid polyp H/O esophagogastroduodenoscopy (01/08/20) 01/08/2020 esophagitis, gastritis, duodenitis Status post right inguinal hernia repair 11/23/2019 Dr. Alamo Status post hip surgery 10/31/2019 entered S/p small bowel obstruction SBO surgery 03/2022 History of throat surgery H/O circumcision S/P IVC filter Family History Denies family history of Diabetes CAD (coronary artery disease) Anesthesia complication Bleeding disorder Cancer Social History Smoking and tobacco/nicotine status: current every day tobacco/nicotine user Alcohol intake: never Substance/Drug Use: never Household members: significant other Marital status: Single Current occupational status: employed Physical Exam Narrative: EXAM NARRATIVE: General: Alert, no acute distress. Skin: Warm, dry. Head: Normocephalic, atraumatic. Neck: Supple, trachea midline. Eye: Extraocular movements are intact. Ears, nose, mouth and throat: mucosa moist. Cardiovascular: Regular, Normal peripheral perfusion. Patient has good radial pulse. Respiratory: Lungs are clear to auscultation, respirations are non-labored, breath sounds are equal, Symmetrical chest wall expansion. Gastrointestinal: Soft, Nontender, Non distended Musculoskeletal: Limitation range of motion of the right shoulder. Worse with active range of motion. No deformities. Neurological: Alert and oriented, No focal neurological deficit observed. Psychiatric: Cooperative, appropriate mood & affect. Course Vital Signs: Vital signs: Vital Signs Temperature 97.5 F L 05/13/25 21:10 Pulse Rate 79 05/13/25 23:08 Respiratory Rate 16 05/13/25 21:10 Blood Pressure 132/83 05/13/25 23:08 Pulse Oximetry 94 05/13/25 23:08 Oxygen Delivery Me thod Room Air 05/13/25 21:10 MDM - Recheck/Abnormal Lab/Rx Medical Decision Making Medical decision making Patient's reason for coming to the emergency room: Shoulder pain Social determinants: Retired I reviewed the patient's medical record. Patient was seen here recently and found to have a vertebral artery moderate occlusion. Planning to follow-up with vascular I reviewed the patient's current home meds Patient was placed on Plavix at that time Alternate historians: None Differential diagnosis: including but not limited to and based on the above HPI, review of systems and physical exam: I think this patient is having musculoskeletal pain most likely with his rotator cuff. Ordered an x-ray just to evaluate the shoulder. Also because of his concern for vascular issues have ordered an ultrasound of his right arm to rule out any further vascular occlusions. Orders placed to evaluate differential diagnosis based on the above differential, HPI and physical exam Ultrasound of the right upper extremity: No vascular abnormalities. This was reviewed and interpreted by myself the emergency room physician. I also reviewed the radiology report. X-ray of the right shoulder: No acute process no fractures. This was reviewed and interpreted by myself the emergency room physician. I also reviewed the radiology report. Lab Review: Laboratory results were reviewed and interpreted by myself the emergency room physician. No lab work indicated today. Assessment of risk: Level of risk: Moderate risk patient. He has a few comorbidities Hospitalization considerations: No consideration for hospitalization today. Reexamination: Patient remained stable. No increased work of breathing. No altered mental status. No focal motor deficits. Assessment and plan: Musculoskeletal shoulder pain ?Norflex Zofran and Decadron along with Dilaudid in the emergency room. - Discharged home - Discussed plan with patient. Answered any questions. - Evaluation and treatment of this problem were appropriate in the emergency setting. Lab Data Radiology Impressions Shoulder X-Ray 05/13/25 22:05 IMPRESSION: No acute findings. Duplex Scan Upper Extremity Artery 05/13/25 22:13 IMPRESSION: No acute findings. No definitive evidence of hemodynamically significant stenosis. All radiology interpretation(s) finalized by discharge Discharge Plan Discharge Patient Disposition: Home Clinical Impression: Right shoulder pain, Rotator cuff strain Condition: Stable Prescriptions: New cyclobenzaprine 10 mg tablet 10 mg PO Q8H PRN (Reason: muscle spasm) Qty: 20 0RF prednisone 20 mg tablet 60 mg PO DAILY Qty: 20 0RF Rx Instructions: 3 tabs (60 mg) x 3 days. 2 tabs (40 mg) x 3 days. 1 tab (20 mg) x 3 days. 1/2 tab (10 mg) x 4 days tramadol 50 mg tablet 50 mg PO Q8H PRN (Reason: pain) Qty: 20 0RF No Action atorvastatin [Lipitor] 10 mg tablet 10 mg PO DAILY Qty: 30 5RF omeprazole 20 mg capsule,delayed release(DR/EC) 20 mg PO DAILY PRN (Reason: Acid Reflux) Qty: 30 5RF aspirin 81 mg tablet,delayed release (DR/EC) 81 mg PO DAILY clopidogrel [Plavix] 75 mg tablet 75 mg PO DAILY Qty: 30 0RF hydrocodone-acetaminophen 5-325 mg tablet 1 tab PO Q6H PRN (Reason: pain) Qty: 14 0RF ondansetron 4 mg tablet,disintegrating 4 mg PO Q6H PRN (Reason: nausea and vomiting) Qty: 14 0RF ondansetron 8 mg tablet,disintegrating 8 mg PO Q6H Qty: 14 0RF Rx Instructions: Take 1/2-1 tab every 6 hours as needed for nausea and vomiting Discharge Orders: Discharge ED (Routine); Ordered 05/13/25 Ordered By: Anushka Spaulding Referrals: Art Cheng MD [Primary Care Provider, Family Practice] Kevin Shine MD [Physician, Orthopedics] - 4-7 days Referral Note: Please call for follow-up appointment with orthopedics or get a referral from your primary care provider Discharge Diet: Usual diet Discharge Activity: Increase activity as tolerated Patient Instructions: Shoulder Pain (ED), Opioid Safety, Pain Management, Patient Portal & Yosvany Instructions Activity Restrictions/Additional Instructions: Thank you for choosing [facility] for your healthcare needs today. You have been screened and evaluated and felt safe for discharge. Health conditions do change or evolve sometimes and as such it is important that you follow up with your Primary Doctor to be re checked, 3-5 days is a general good time frame for follow up. You are always welcome to return to the ED for re assessment if your symptoms are worsening or you have new concerns Print Language: Cambodian Coding Level of Care Code ED Package Line Operator for Luis Tate
--- NOTE | 2025-05-13 22:13 | USR_ITS ---
PROCEDURE INFORMATION: Exam: US Duplex Right Upper Extremity Arteries Exam date and time: 05/13/2025 10:23 PM Age: 65 years old Clinical indication: Pain; Arm, upper and arm, lower; Right; Additional info: Arm pain TECHNIQUE: Imaging protocol: Right Real-time ultrasound scan of the arteries of the right upper extremity with 2-D epstein scale, color Doppler flow and spectral waveform analysis. COMPARISON: CT angio neck [id number] 05/11/2025 1:53 PM FINDINGS: Right subclavian artery: No occlusion or significant stenosis. Normal waveform. Right axillary artery: No occlusion or significant stenosis. Normal waveform. Right brachial artery: No occlusion or significant stenosis. Normal waveform. Right radial artery: No occlusion or significant stenosis. Normal waveform. Right ulnar artery: No occlusion or significant stenosis. Normal waveform. PSV in cm/sec as follows: Subclavian: 99 Axillary: 51 Brachial: 92, 87, 84 Radial: 78 Ulnar: 103 US/[place] [id number] IMPRESSION: No acute findings. No definitive evidence of hemodynamically significant stenosis.
[2025-05-13] MEDS: orphenadrine 30 mg/mL Inj 2 mL 60 MG IVP (23:01)
[2025-05-13] MEDS: ondansetron 2 mg/ML SDV 2 mL 4 MG IVP (23:01)
[2025-05-13] MEDS: HYDROmorphone 0.5 MG/0.5 ML INJ IVP (23:02)
[2025-05-13 23:03] VITALS: BP 124/78; PULSE 80
[2025-05-13 23:08] VITALS: BP 132/83; PULSE 79; O2SAT 94
== END 2025-05-13 23:47 | disposition home or self-care (01) ==
PROVIDERS: Emergency Provider Emergency Medicine; PCP Family Medicine Adult Medicine
DX: S46.011A Strain of muscle(s) and tendon(s) of the rotator cuff of right shoulder, initial encounter (principal); Z79.82 Long term (current) use of aspirin; Z79.02 Long term (current) use of antithrombotics/antiplatelets; Z72.0 Tobacco use; X58.XXXA Exposure to other specified factors, initial encounter; N18.2 Chronic kidney disease, stage 2 (mild)
CPT/HCPCS: 73030; 93931; 96374; 96375; 99284; J1100; J1171; J2360; J2405